=== PATIENT | male | born 1975 | race Caucasian/White ===

== ENCOUNTER 2018-08-11 20:35 | Inpatient (IN) | payer MEDICARE ==
[~2018-08-11 20:35] MED LIST: ETOMIDATE INJ/PF 20 MG/10 ML SDV IV ONE; ROCURONIUM BROMIDE INJ 50 MG/5 ML VIAL IV ONE
[2018-08-11] MEDS ORDERED: LIDOCAINE 2% INJ-PF (100 MG/5 ML) SYRINGE IV ONE (21:05)
[2018-08-11] MEDS ORDERED: ETOMIDATE INJ/PF 20 MG/10 ML SDV IV ONE (21:06)
[2018-08-11] MEDS ORDERED: ROCURONIUM BROMIDE INJ 50 MG/5 ML VIAL IV ONE (21:06)
[2018-08-11] MEDS ORDERED: ONDANSETRON HCL INJ/PF 4 MG/2 ML SDV IV ONE (21:07)
[2018-08-11] MEDS ORDERED: PROPOFOL 1,000 MG/100 ML INFUS..BTL IV PRN (21:07)
[2018-08-11 21:11] LABS: ABSOLUTE BASOPHILS # (AUTO) 0.1 10^3/uL (0.0-0.2); ABSOLUTE EOSINOPHILS # (AUTO) 0.2 10^3/uL (0.0-0.6); ABSOLUTE MONOCYTES (AUTO) 0.3 10^3/uL (0.1-1.4); ABSOLUTE NEUT (AUTO) 3.3 10^3/uL (1.7-8.2); BASOPHILS % (AUTO) 1.2 % (0-2); EOSINOPHILS % (AUTO) 3.5 % (0-6); HEMATOCRIT 39.7 % (37.9-51.0); HEMOGLOBIN 13.3 g/dL (13.5-17.0); LYMPHOCYTES % (AUTO) 20.9 % (13-45); MEAN CORPUSCULAR HEMOGLOBIN 31.7 pg (27.0-33.4); MEAN CORPUSCULAR HGB CONC 33.5 g/dL (32.0-36.0); MEAN CORPUSCULAR VOLUME 95 fl (80-97); MONOCYTES % (AUTO) 5.2 % (3-13); PLATELET COUNT 133 10^3/uL (150-450); RED BLOOD COUNT 4.18 10^6/uL (4.35-5.55); RED CELL DISTRIBUTION WIDTH 13.6 % (11.5-14.0); SEGMENTED NEUTROPHILS % (AUTO) 69.2 % (42-78); TOTAL CELLS COUNTED % (AUTO) 100 %; WHITE BLOOD COUNT 4.8 10^3/uL (4.0-10.5)
--- NOTE | 2018-08-11 21:12 | ER Document Report ---
ED General - General Chief Complaint: Unresponsive Stated Complaint: UNRESPONSIVE Time Seen by Provider: 08/11/18 21:04 Mode of Arrival: Medic Information source: Emergency Med Personnel Cannot obtain history due to: Unstable vital signs, Altered mental status Notes: 43-year-old male presents via EMS unresponsive and in respiratory failure. Per EMS they were called to the patient's house due to agitation, headache. Upon their arrival patient was combative, agitated and had multiple syncopal episodes that were witnessed by EMS. Patient did receive ketamine, fentanyl prior to arrival and did have a brief episode of respiratory arrest and presented bagging. No family is at the bedside to provide any additional information at this time. - HPI Onset: Just prior to arrival Onset/Duration: Sudden Associated symptoms: Headache - Related Data Allergies/Adverse Reactions: codeine Allergy (Verified 08/12/18 00:20) nitroglycerin Adverse Reaction (Verified 08/12/18 00:20) Past Medical History - General Information source: Emergency Med Personnel Cannot obtain history due to: Intubated, Unstable vital signs, Altered mental status - Social History Smoking Status: Unknown if Ever Smoked Lives with: Family Family History: Reviewed & Not Pertinent - Past Medical History Cardiac Medical History: Reports: Hx Hypertension Pulmonary Medical History: Reports: Other - Pulmonary hypertension Review of Systems - Review of Systems -: Yes ROS unobtainable due to patient's medical condition Physical Exam - Vital signs Vitals: Pulse Ox 98 08/11/18 20:35 - Notes Notes: PHYSICAL EXAMINATION: GENERAL: Presents unresponsive being bagged. HEAD: Atraumatic, normocephalic. EYES: Pupils equal round and reactive to light, sclera anicteric, conjunctiva are normal. ENT: Nares patent, oropharynx clear without exudates. Moist mucous membranes. NECK: Normal range of motion, supple without lymphadenopathy LUNGS: No spontaneous respirations, presents being bagged with bilateral breath sounds HEART: Regular rate and rhythm without murmurs ABDOMEN: Soft, nontender, nondistended abdomen. No guarding, no rebound. No masses appreciated. Musculoskeletal: Normal range of motion, no pitting or edema. No cyanosis. NEUROLOGICAL: 3T PSYCH: Unresponsive SKIN: Warm, Dry, normal turgor, no rashes or lesions noted. Course - Re-evaluation Re-evalutation: 08/12/18 01:42 Laboratory 08/11/18 08/11/18 08/11/18 00:45 00:45 20:56 WBC 4.8 RBC 4.18 L Hgb 13.3 L Hct 39.7 MCV 95 MCH 31.7 MCHC 33.5 RDW 13.6 Plt Count 133 L Seg Neutrophils % 69.2 Lymphocytes % 20.9 Monocytes % 5.2 Eosinophils % 3.5 Basophils % 1.2 Absolute Neutrophils 3.3 Absolute Lymphocytes 1.0 Absolute Monocytes 0.3 Absolute Eosinophils 0.2 Absolute Basophils 0.1 PT INR APTT VBG pH 7.30 VBG pCO2 51.1 VBG HCO3 24.7 VBG Base Excess -2.3 Sodium Potassium Chloride Carbon Dioxide Anion Gap BUN Creatinine Est GFR ( Amer) Est GFR (Non-Af Amer) Glucose Lactic Acid 2.3 H Calcium Total Bilirubin Direct Bilirubin Neonat Total Bilirubin Neonat Direct Bilirubin Neonat Indirect Bili AST ALT Alkaline Phosphatase Creatine Kinase CK-MB (CK-2) Troponin I Total Protein Albumin TSH Free T4 Free T3 pg/mL 08/11/18 08/11/18 08/11/18 20:56 20:56 20:56 WBC RBC Hgb Hct MCV MCH MCHC RDW Plt Count Seg Neutrophils % Lymphocytes % Monocytes % Eosinophils % Basophils % Absolute Neutrophils Absolute Lymphocytes Absolute Monocytes Absolute Eosinophils Absolute Basophils PT 13.6 INR 0.99 APTT 28.3 VBG pH VBG pCO2 VBG HCO3 VBG Base Excess Sodium 147.0 H Potassium 4.1 Chloride 104 Carbon Dioxide 25 Anion Gap 18 BUN 10 Creatinine 0.81 Est GFR ( Amer) > 60 Est GFR (Non-Af Amer) > 60 Glucose 99 Lactic Acid Calcium 9.0 Total Bilirubin 0.6 Direct Bilirubin 0.5 H Neonat Total Bilirubin Not Reportable Neonat Direct Bilirubin Not Reportable Neonat Indirect Bili Not Reportable AST 220 H ALT 100 H Alkaline Phosphatase 113 Creatine Kinase 64 CK-MB (CK-2) 0.49 Troponin I < 0.012 Total Protein 7.6 Albumin 4.5 TSH Free T4 Free T3 pg/mL 08/11/18 20:56 WBC RBC Hgb Hct MCV MCH MCHC RDW Plt Count Seg Neutrophils % Lymphocytes % Monocytes % Eosinophils % Basophils % Absolute Neutrophils Absolute Lymphocytes Absolute Monocytes Absolute Eosinophils Absolute Basophils PT INR APTT VBG pH VBG pCO2 VBG HCO3 VBG Base Excess Sodium Potassium Chloride Carbon Dioxide Anion Gap BUN Creatinine Est GFR ( Amer) Est GFR (Non-Af Amer) Glucose Lactic Acid Calcium Total Bilirubin Direct Bilirubin Neonat Total Bilirubin Neonat Direct Bilirubin Neonat Indirect Bili AST ALT Alkaline Phosphatase Creatine Kinase CK-MB (CK-2) Troponin I Total Protein Albumin TSH 1.63 Free T4 1.37 Free T3 pg/mL 2.91 Chest X-Ray 08/11/18 20:56 IMPRESSION: Left medial basilar dense consolidation. Endotracheal tube tip overlies the mid trachea, approximately 5.6 cm above the level of the natanael. Orogastric catheter is present with tip overlying the body of the stomach. Head CT 08/11/18 20:56 IMPRESSION: No acute intracranial findings. EVIDENCE OF ACUTE STROKE: NO. Chest CT 08/11/18 21:46 IMPRESSION: Limited exam as a result of body habitus and lack of contrast Areas of atelectasis in the lower lobes bilaterally and in the upper lobes bilaterally Enlarged liver and spleen Probable hilar adenopathy Endotracheal and nasogastric tubes in place Head CTA 08/11/18 21:46 IMPRESSION: Significantly suboptimal exam due to venous interference and contrast bolus. However as visualized, the CTA portion of the exam is unremarkable. Diffusely enlarged and nodular appearance to the thyroid gland. This likely reflects goitrous change. Correlate with thyroid function. Airspace opacities in the visualized lung apices bilaterally. TECHNICAL DOCUMENTATION: Quality ID # 436: Final reports with documentation of one or more dose reduction techniques (e.g., Automated exposure control, adjustment of the mA and/or kV according to patient size, use of iterative reconstruction technique) copyright 2010 [employer]- All Rights Reserved Neck CTA 08/11/18 21:46 IMPRESSION: Significantly suboptimal exam due to venous interference and contrast bolus. However as visualized, the CTA portion of the exam is unremarkable. Diffusely enlarged and nodular appearance to the thyroid gland. This likely reflects goitrous change. Correlate with thyroid function. Airspace opacities in the visualized lung apices bilaterally. TECHNICAL DOCUMENTATION: Quality ID # 436: Final reports with documentation of one or more dose reduction techniques (e.g., Automated exposure control, adjustment of the mA and/or kV according to patient size, use of iterative reconstruction technique) copyright 2010 [employer]- All Rights Reserved Temp Pulse Resp BP Pulse Ox 98.5 F 18 114/67 97 08/12/18 01:22 08/12/18 01:22 08/12/18 01:22 08/12/18 01:22 43-year-old male with known pulmonary hypertension, hypertension on continuous oxygen and BiPAP at night presents via EMS in respiratory distress. Upon arrival patient is actively being back. He has no spontaneous respirations. EMS reports that upon their arrival patient was agitated, combative and had a syncopal episode. They state that the patient was holding his head and complaining of a headache. reports that she had found the patient face down in his bed and urged him to turn over when he awoke agitated, confused and did not recognize her. She states the patient fell to the ground and did not seem to be breathing. She states that she placed his trilogy machine on him and the patient awoke. She denies any recent illness. She does state that patient has had prior similar symptoms but nothing as bad as tonight. 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 She also states that the patient is not always compliant with his oxygen. Patient has had previous intubation in the past. Because the patient had no spontaneous respirations intubation was performed using the glide scope and a 7.5 ET tube. This was done successfully with one attempt. Patient is currently being sedated with Versed and propofol. Patient is receiving every hour fentanyl. CBC is without leukocytosis or anemia. CMP does show a mild elevation in the patient's LFTs. Cardiac enzymes and venous blood gas are within normal limits. Family who is at the bedside is okay with admission to the ICU. Patient has been accepted by Dr. Aparicio hospitalist to the ICU. 08/12/18 01:52 - Vital Signs Vital signs: Temp Pulse Resp BP Pulse Ox 98.5 F 18 114/67 97 08/12/18 01:22 08/12/18 01:22 08/12/18 01:22 08/12/18 01:22 - Laboratory Result Diagrams: 08/11/18 20:56 08/11/18 20:56 Laboratory results interpreted by me: 08/11/18 08/11/18 08/11/18 00:45 20:56 20:56 RBC 4.18 L Hgb 13.3 L Plt Count 133 L Sodium 147.0 H Lactic Acid 2.3 H Direct Bilirubin 0.5 H AST 220 H ALT 100 H - Diagnostic Test Radiology reviewed: Image reviewed, Reports reviewed - EKG Interpretation by Me EKG shows normal: Sinus rhythm Rate: Normal Rhythm: NSR When compared to previous EKG there are: Previous EKG unavailable Procedures - Intubation Orotracheal Time of Intubation: 09:45 Airway evaluation: Large tongue, Obese Mallampati Classification: Class 3 Medications: Etomidate, Other - Rocuronium Intubation method: Orotracheal Blade type: Merrick Blade size: 3 Equipment used: Glidescope ETT size: 7.5 ETT secured at: Gums ETT secured at (cm): 23 Breath Sounds after Intubation: Equal End tidal CO2 confirmed: Yes Post Intubation Xray: Yes Intubation Complications: No complications Critical Care Note - Critical Care Note Total time excluding time spent on procedures (mins): 45 - Minutes of critical care time spent in direct contact evaluating and reevaluating the patient, treating symptoms, reviewing labs and studies and speaking with family and consultants excluding any procedures Discharge - Discharge Clinical Impression: History of pulmonary hypertension, Syncope and collapse, Confusion Respiratory failure Qualifiers: Chronicity: unspecified Respiratory failure complication: hypercapnia Qualified Code(s): J96.92 - Respiratory failure, unspecified with hypercapnia Hypothermia Qualifiers: Encounter type: initial encounter Qualified Code(s): T68.XXXA - Hypothermia, initial encounter Condition: Fair Disposition: ADMITTED INPATIENT Admitting Provider: Markus (Hospitalist) Unit Admitted: ICU
[2018-08-11 21:15] LABS: INTERNATIONAL RATION (INR) 0.99
[2018-08-11 21:16] LABS: PARTIAL THROMBOPLASTIN TIME 28.3 SEC (23.5-35.8)
[2018-08-11 21:18] LABS: PROTHROMBIN TIME 13.6 SEC (11.4-15.4)
[2018-08-11 21:25] LABS: ALANINE AMINOTRANSFERASE 100 U/L (21-72); ALBUMIN 4.5 g/dL (3.5-5.0); ALKALINE PHOSPHATASE 113 U/L (38-126); ANION GAP 18 (5-19); ASPARTATE AMINO TRANSFERASE 220 U/L (17-59); BILIRUBIN,DIRECT 0.5 mg/dL (0.0-0.4); BILIRUBIN,TOTAL 0.6 mg/dL (0.2-1.3); BLOOD UREA NITROGEN 10 mg/dL (7-20); CARBON DIOXIDE 25 mmol/L (22-30); CHLORIDE 104 mmol/L (98-107); CREATINE KINASE 64 U/L (55-170); GLUCOSE 99 mg/dL (75-110); POTASSIUM 4.1 mmol/L (3.6-5.0); TOTAL PROTEIN 7.6 g/dL (6.3-8.2)
[2018-08-11 21:36] LABS: CREATINE KINASE MB 0.49 ng/mL (<4.55)
[2018-08-11 21:39] LABS: TROPONIN I < 0.012 ng/mL
--- NOTE | 2018-08-11 21:51 | RADIOLOGY REPORT (SQ) ---
EXAM DESCRIPTION: CT HEAD WITHOUT COMPLETED DATE/TIME: 08/11/2018 9:25 pm REASON FOR STUDY: stroke alert COMPARISON: None. TECHNIQUE: Axial images acquired through the brain without intravenous contrast. Images reviewed wi th bone, brain and subdural windows. Images stored on PACS. All CT scanners at this facility use dose modulation, iterative reconstruction, and/or weight based d osing when appropriate to reduce radiation dose to as low as reasonably achievable (ALARA). [facility]: Dose Right [facility]: CareDose [facility]: Dose Right [facility]: Teradose 4D [facility]: [facility] RADIATION DOSE: CT Rad equipment meets quality standard of care and radiation dose reduction techniq ues were employed. CTDIvol: 55.2 mGy. DLP: 1112 mGy-cm. mGy. LIMITATIONS: None. FINDINGS: VENTRICLES: Normal size and contour. CEREBRUM: No masses. No hemorrhage. No midline shift. No evidence for acute infarction. Normal gra y/white matter differentiation. No areas of low density in the white matter. CEREBELLUM: No masses. No hemorrhage. No alteration of density. No evidence for acute infarction. EXTRAAXIAL SPACES: No fluid collections. No masses. ORBITS AND GLOBE: No intra- or extraconal masses. Normal contour of globe without masses. CALVARIUM: No fracture. PARANASAL SINUSES: No fluid or mucosal thickening. SOFT TISSUES: No mass or hematoma. OTHER: Endotracheal tube and orogastric catheter are present. IMPRESSION: No acute intracranial findings. EVIDENCE OF ACUTE STROKE: NO. COMMENT: Results called to the emergency 2144 hours. Quality ID # 436: Final reports with documentation of one or more dose reduction techniques (e.g., Au tomated exposure control, adjustment of the mA and/or kV according to patient size, use of iterative reconstruction technique) TECHNICAL DOCUMENTATION: JOB ID: [id number] [place]-72 2010 [employer]- All Rights Reserved Reading location - IP/workstation name: [email or web address]
--- NOTE | 2018-08-11 21:53 | RADIOLOGY REPORT (SQ) ---
EXAM DESCRIPTION: CHEST SINGLE VIEW COMPLETED DATE/TIME: 08/11/2018 9:25 pm REASON FOR STUDY: stroke alert COMPARISON: None. EXAM PARAMETERS: NUMBER OF VIEWS: One view. TECHNIQUE: Single frontal radiographic view of the chest acquired. RADIATION DOSE: NA LIMITATIONS: None. FINDINGS: LUNGS AND PLEURA: No pneumothorax. Left medial basilar dense consolidation. No significa nt pleural effusion. MEDIASTINUM AND HILAR STRUCTURES: No masses. Contour normal. HEART AND VASCULAR STRUCTURES: Heart normal in size. Normal vasculature. BONES: No acute findings. HARDWARE: Endotracheal tube tip overlies the mid trachea, approximately 5.6 cm above the level of the natanael. Orogastric catheter is present with tip overlying the body of the stomach. OTHER: No other significant finding. IMPRESSION: Left medial basilar dense consolidation. Endotracheal tube tip overlies the mid trachea, approximately 5.6 cm above the level of the natanael. Orogastric catheter is present with tip overlyi ng the body of the stomach. TECHNICAL DOCUMENTATION: JOB ID: [id number] [place]-72 2010 [email or web address]- All Rights Reserved Reading location - IP/workstation name: [email or web address]
[2018-08-11] MEDS ORDERED: CEFTRIAXONE 1 GM/D5W RTU 1 GM/50 ML RTUPB IV ONE (22:15)
[2018-08-11] MEDS ORDERED: PROPOFOL 1,000 MG/100 ML INFUS..BTL IV ONE (22:30)
[2018-08-11] MEDS ORDERED: FENTANYL CITRATE INJ/PF 100 MCG/2 ML AMPUL IV ONE (22:46)
[2018-08-11] MEDS ORDERED: MIDAZOLAM HCL 50 MG/100 ML RTUINJ IV PRN (22:47)
--- NOTE | 2018-08-11 23:00 | RADIOLOGY REPORT (SQ) ---
EXAM DESCRIPTION: CT CHEST WITHOUT IV CONTRAST COMPLETED DATE/TME: 08/11/2018 21:46 CLINICAL HISTORY: 43 years Male headache syncope COMPARISON: None. TECHNIQUE: Contiguous axial images obtained through the chest without IV contrast. Reformatted images obtained. This exam was performed according to our department optimization program which includes automated exposure control, adjustment of the mA and/or kv according to patient size and/or use of iterative reconstruction technique. FINDINGS: Study is limited by body habitus and lack of contrast. Nasogastric tube and endotracheal tubes in place. Fatty infiltration of the liver. Enlarged spleen. Hilar regions are suboptimally evaluated but there appears to be mild hilar adenopathy. Unenhanced aorta is normal in caliber. Areas of atelectasis in the lower lobes bilaterally and in the upper lobes. No alveolar consolidation is noted. No significant mediastinal adenopathy. IMPRESSION: Limited exam as a result of body habitus and lack of contrast Areas of atelectasis in the lower lobes bilaterally and in the upper lobes bilaterally Enlarged liver and spleen Probable hilar adenopathy Endotracheal and nasogastric tubes in place
--- NOTE | 2018-08-11 23:02 | RADIOLOGY REPORT (SQ) ---
EXAM DESCRIPTION: CT NECK ANGIOGRAPHY WITHOUT THEN WITH IV CONTRAST, CT HEAD ANGIOGRAPHY WITHOUT THEN WITH IV CONTRAST COMPLETED DATE/TME: 08/11/2018 21:46 CLINICAL HISTORY: 43 years, Male, headache syncope COMPARISON: None. TECHNIQUE: [id number] Images stored on PACS. All CT scanners at this facility use dose modulation, iterative reconstruction, and/or weight based dosing when appropriate to reduce radiation dose to as low as reasonably achievable (ALARA). Axial images obtained with coronal and sagittal MIPS reconstructions [facility]: Dose Right [facility]: CareDose [facility]: Dose Right [facility]: Teradose 4D [facility]: [employer] LIMITATIONS: None. FINDINGS: CTA neck: Limited evaluation of lung apices shows airspace opacities bilaterally. Endotracheal tube and enteric tubes are partially seen. The origins of the great vessels appear patent, although there is significant venous interference artifact. The origins and remaining cervical portions of the vertebral arteries are patent. Enlargement of the thyroid with diffuse nodularity suggesting goitrous change. The bilateral common carotid arteries are widely patent. The cervical portions of the internal carotid arteries are widely patent. CTA brain: Significantly suboptimal contrast bolus limits evaluation of the vertebral basilar system however no convincing evidence for basilar tip aneurysm. The petrous and remaining intracranial portions of the internal carotid arteries are also suboptimally assessed but appear grossly patent. [place] is suboptimally opacified. No convincing evidence for aneurysm or arteriovenous malformation. No gross CTA evidence for measurable stenosis. IMPRESSION: Significantly suboptimal exam due to venous interference and contrast bolus. However as visualized, the CTA portion of the exam is unremarkable. Diffusely enlarged and nodular appearance to the thyroid gland. This likely reflects goitrous change. Correlate with thyroid function. Airspace opacities in the visualized lung apices bilaterally. TECHNICAL DOCUMENTATION: Quality ID # 436: Final reports with documentation of one or more dose reduction techniques (e.g., Automated exposure control, adjustment of the mA and/or kV according to patient size, use of iterative reconstruction technique) copyright 2011 [employer]- All Rights Reserved
[2018-08-11] MEDS: FENTANYL CITRATE INJ/PF 100 MCG/2 ML AMPUL IV SCH (23:03)
[2018-08-12 00:34] LABS: FREE T3 2.91 pg/mL (2.77-5.27); FREE T4 (FREE THYROXINE) 1.37 ng/dL (0.78-2.19)
[2018-08-12 00:48] LABS: THYROID STIMULATING HORMONE 1.63 uIU/mL (0.47-4.68)
[2018-08-12 01:10] LABS: VENOUS BLOOD BASE EXCESS -2.3 mmol/L; VENOUS BLOOD HCO3 24.7 mmol/L (20-32); VENOUS BLOOD PCO2 51.1 mmHg (35-63); VENOUS BLOOD PH 7.3 (7.30-7.42)
[2018-08-12] MEDS: PROPOFOL 1,000 MG/100 ML INFUS..BTL IV PRN ×11 (01:15→22:21)
[2018-08-12] MEDS: FENTANYL CITRATE INJ/PF 100 MCG/2 ML AMPUL IV SCH ×10 (01:24→11:42)
[2018-08-12 01:28] LABS: APPEARANCE,URINE CLEAR; BILIRUBIN,URINE NEGATIVE (NEGATIVE); COLOR,URINE YELLOW; GLUCOSE, URINE NEGATIVE (NEGATIVE); KETONES,URINE NEGATIVE (NEGATIVE); LEUKOCYTE ESTERASE,URINE NEGATIVE (NEGATIVE); NITRITE,URINE NEGATIVE (NEGATIVE); PROTEIN,URINE NEGATIVE (NEGATIVE); UROBILINOGEN,URINE NEGATIVE mg/dL (<2.0)
[2018-08-12] MEDS ORDERED: ONDANSETRON HCL INJ/PF 4 MG/2 ML SDV IV PRN (01:31)
[2018-08-12] MEDS ORDERED: CEFTRIAXONE 1 GM/D5W RTU 1 GM/50 ML RTUPB IV ONE (01:33)
[2018-08-12] MEDS ORDERED: MORPHINE SULFATE 10 MG/ML INJ IV PRN (01:48)
[2018-08-12] MEDS ORDERED: ACETAMINOPHEN 650 MG SUPP.RECT PR PRN (01:48)
[2018-08-12] MEDS ORDERED: NORMAL SALINE 1000 ML 1,000 ML IV ONE (01:51)
[2018-08-12 02:14] LABS: URINE AMPHETAMINES SCREEN NEGATIVE; URINE BARBITURATES SCREEN NEGATIVE; URINE BENZODIAZEPINES SCREEN NEGATIVE; URINE COCAINE SCREEN NEGATIVE; URINE METHADONE SCREEN NEGATIVE; URINE PHENCYCLIDINE SCREEN NEGATIVE
[2018-08-12 02:29] LABS: URINE MARIJUANA (THC) SCREEN NEGATIVE
[2018-08-12] MEDS: RINGERS SOLUTION,LACTATED 1,000 ML IV PRN ×4 (03:27→21:41)
[2018-08-12] MEDS: MIDAZOLAM HCL 50 MG/100 ML RTUINJ IV PRN ×3 (05:15→20:23)
--- NOTE | 2018-08-12 06:54 | PDOC H&P ---
History of Present Illness Admission Date/PCP: 08/12/2018 No PCP Patient complains of: Agitation History of Present Illness: ARLEY COELLO is a 43 year old male who presented to the emergency room via EMS with a history of acute episodes of agitation, headache and syncope. He was found by his at his home apparently having fallen asleep without using his BiPAP and she noted that he was cyanotic and hard to arouse. She put his BiPAP back on him and while she was trying to assist him he aroused suddenly and did not recognize her and became very agitated and combative and then as he improved he complained of a severe headache (the worst of his life) and then developed a sudden syncopal episode. This alarmed his and she called EMS. The patient had another similar episode in the emergency vehicle and again had a similar episode in the emergency room under the observation of the emergency room physician and staff. His oxygen saturations were noted to vary wildly in the emergency room and to guarantee his best oxygenation and reduce his agitation and anxiety he was intubated in placed on a ventilator. His CT scan shows no evidence of an acute intracranial process. Patient was subsequently admitted to the hospital for further evaluation and treatment in the ICU. Past Medical History Past Medical History: Past medical history, past surgical history, social history, medications/allergies and family history cannot be obtained from the patient due to his acute encephalopathy and subsequent intubation and ventilation. Information obtained is gleaned from his current medical record and any available reliable source. Cardiac Medical History: Reports: Hypertension, Other - Pulmonary hypertension Pulmonary Medical History: Reports: Respiratory Failure - Chronic respiratory failure with hypoxia secondary to pulmonary HTN, Sleep Apnea - Restrictive lung disease, Other - Uses Trilogy at night, and oxygen 2 L per nasal cannula during the days Denies: Asthma, Chronic Obstructive Pulmonary Disease (COPD) EENT Medical History: Denies: Cataracts, Eyes - No vision problem, Ears - No hearing problem Neurological Medical History: Denies: Hemorrhagic CVA, Ischemic CVA Endocrine Medical History: Denies: Diabetes Mellitus Type 1, Diabetes Mellitus Type 2 Renal/ Medical History: Denies: Chronic Kidney Disease, Nephrolithiasis Malignancy Medical History: Reports: None GI Medical History: Denies: Cirrhosis, Hepatitis Musculoskeltal Medical History: Denies: Arthritis, Gout Skin Medical History: Denies: Eczema, Psoriasis Psychiatric Medical History: Denies: Alcohol Dependency, Substance Abuse, Tobacco Dependency Traumatic Medical History: Reports: None Hematology: Denies: Anemia, Bleeding Tendencies Infectious Medical History: Reports: None Past Surgical History Past Surgical History: Past medical history, past surgical history, social history, medications/allergies and family history cannot be obtained from the patient due to his acute encephalopathy and subsequent intubation and ventilation. Information obtained is gleaned from his current medical record and any available reliable source. Past Surgical History: Reports: None Social History Information Source: Relative Lives with: Family Smoking Status: Never Smoker Frequency of Alcohol Use: Rare Hx Recreational Drug Use: No Drugs: None Hx Prescription Drug Abuse: No Past Social History Note: Past medical history, past surgical history, social history, medications/allergies and family history cannot be obtained from the patient due to his acute encephalopathy and subsequent intubation and ventilation. In formation obtained is gleaned from his current medical record and any available reliable source. - Advance Directive Resuscitation Status: Full Code Surrogate healthcare decision maker:: Family History Family History: CAD, Hypertension Family History: Past medical history, past surgical history, social history, medications/allergies and family history cannot be obtained from the patient due to his acute encephalopathy and subsequent intubation and ventilation. Information obtained is gleaned from his current medical record and any available reliable source. Parental Family History Reviewed: Yes Children Family History Reviewed: No Sibling(s) Family History Reviewed.: Yes Medication/Allergy Allergies/Adverse Reactions: codeine Allergy (Verified 08/12/18 00:20) nitroglycerin Adverse Reaction (Verified 08/12/18 00:20) Review of Systems ROS unobtainable: Due to endotracheal tube Physical Exam Vital Signs: Temp Pulse Resp BP Pulse Ox 21 H 106/57 L 99 08/11/18 23:17 08/11/18 23:17 08/11/18 23:17 Intake & Output 08/10/18 08/11/18 08/12/18 23:59 23:59 23:59 Intake Total 150 Balance 150 General appearance: PRESENT: no acute distress, obese, other - Intubated and ventilated Head exam: PRESENT: atraumatic, normocephalic Eye exam: ABSENT: conjunctival injection, scleral icterus Ear exam: PRESENT: normal external ear exam. ABSENT: bleeding, drainage Mouth exam: PRESENT: dry mucosa, neck supple Neck exam: ABSENT: thyromegaly, tracheal deviation Respiratory exam: PRESENT: clear to auscultation amy, symmetrical, other - On mechanical ventilation Cardiovascular exam: PRESENT: RRR. ABSENT: clicks, gallop, rubs Pulses: PRESENT: normal radial pulses, normal dorsalis pedis pul Vascular exam: PRESENT: normal capillary refill. ABSENT: pallor GI/Abdominal exam: PRESENT: normal bowel sounds, soft Rectal exam: PRESENT: deferred Extremities exam: ABSENT: joint swelling, pedal edema Musculoskeletal exam: ABSENT: deformity, dislocation Neurological exam: PRESENT: other - Paralyzed and sedated for endotracheal intubation thus limiting examination Psychiatric exam: PRESENT: other - Paralyzed and sedated for endotracheal intubation thus limiting examination Skin exam: PRESENT: dry, intact, warm. ABSENT: jaundice, rash, urticaria Results Laboratory Results: 08/11/18 20:56 08/11/18 20:56 08/11/18 08/11/18 20:56 20:56 WBC 4.8 RBC 4.18 L Hgb 13.3 L Hct 39.7 MCV 95 MCH 31.7 MCHC 33.5 RDW 13.6 Plt Count 133 L Seg Neutrophils % 69.2 Lymphocytes % 20.9 Monocytes % 5.2 Eosinophils % 3.5 Basophils % 1.2 Absolute Neutrophils 3.3 Absolute Lymphocytes 1.0 Absolute Monocytes 0.3 Absolute Eosinophils 0.2 Absolute Basophils 0.1 Sodium 147.0 H Potassium 4.1 Chloride 104 Carbon Dioxide 25 Anion Gap 18 BUN 10 Creatinine 0.81 Est GFR ( Amer) > 60 Est GFR (Non-Af Amer) > 60 Glucose 99 Calcium 9.0 Total Bilirubin 0.6 AST 220 H ALT 100 H Alkaline Phosphatase 113 Total Protein 7.6 Albumin 4.5 08/11/18 08/11/18 20:56 20:56 Creatine Kinase 64 CK-MB (CK-2) 0.49 Troponin I < 0.012 Impressions: Chest X-Ray 08/11/18 20:56 IMPRESSION: Left medial basilar dense consolidation. Endotracheal tube tip overlies the mid trachea, approximately 5.6 cm above the level of the natanael. Orogastric catheter is present with tip overlying the body of the stomach. Head CT 08/11/18 20:56 IMPRESSION: No acute intracranial findings. EVIDENCE OF ACUTE STROKE: NO. Chest CT 08/11/18 21:46 IMPRESSION: Limited exam as a result of body habitus and lack of contrast Areas of atelectasis in the lower lobes bilaterally and in the upper lobes bilaterally Enlarged liver and spleen Probable hilar adenopathy Endotracheal and nasogastric tubes in place Head CTA 08/11/18 21:46 IMPRESSION: Significantly suboptimal exam due to venous interference and contrast bolus. However as visualized, the CTA portion of the exam is unremarkable. Diffusely enlarged and nodular appearance to the thyroid gland. This likely reflects goitrous change. Correlate with thyroid function. Airspace opacities in the visualized lung apices bilaterally. TECHNICAL DOCUMENTATION: Quality ID # 436: Final reports with documentation of one or more dose reduction techniques (e.g., Automated exposure control, adjustment of the mA and/or kV according to patient size, use of iterative reconstruction technique) copyright 2010 [employer]- All Rights Reserved Neck CTA 08/11/18 21:46 IMPRESSION: Significantly suboptimal exam due to venous interference and contrast bolus. However as visualized, the CTA portion of the exam is unremarkable. Diffusely enlarged and nodular appearance to the thyroid gland. This likely reflects goitrous change. Correlate with thyroid function. Airspace opacities in the visualized lung apices bilaterally. TECHNICAL DOCUMENTATION: Quality ID # [id number]: Final reports with documentation of one or more dose reduction techniques (e.g., Automated exposure control, adjustment of the mA and/or kV according to patient size, use of iterative reconstruction technique) copyright 2010 [employer]- All Rights Reserved Assessment and Plan - Diagnosis (1) Acute and chronic respiratory failure with hypoxia Is this a current diagnosis for this admission?: Yes Plan: Patient will continue on mechanical ventilation. Settings will be adjusted according to need based on ABGs. Patient will be maintained on mechanical ventilation until such time as he can be treated with continuous BiPAP which is his norm. (2) Encephalopathy acute Is this a current diagnosis for this admission?: Yes Plan: A urine drug screen will be obtained. Interventional radiology will be consulted for a lumbar puncture for chemistry and culture evaluation. Daily CBCs, comprehensive metabolic profiles, and magnesium levels will be obtained. A thyroid profile will be obtained x1. Further evaluation for causes of acute encephalopathy will be entertained as appropriate. (3) Syncope and collapse Is this a current diagnosis for this admission?: Yes Plan: Patient will be monitored closely throughout his hospital stay. When he is able to be off ventilator he will be further evaluated for possible causes of his syncope if no clear etiology has yet been determined. (4) Pulmonary hypertension Is this a current diagnosis for this admission?: Yes Plan: Patient will be continued on mechanical ventilation to support adequate oxyg enation and overcome the adverse effects of his pulmonary hypertension. Patient will be returning to his usual continuous BiPAP usage when possible. Pulmonology consult may be obtained when pulmonology services are available. - Time Time Spent with patient: 15-24 minutes Medications reviewed and adjusted accordingly: No - No home med list Anticipated discharge: Home - Inpatient Certification Based on my medical assessment, after consideration of the patient's comorbidities, presenting symptoms, or acuity I expect that the services needed warrant INPATIENT care.: Yes I certify that my determination is in accordance with my understanding of Medicare's requirements for reasonable and necessary INPATIENT services [42 CFR 412.3e].: Yes Medical Necessity: Need Close Monitoring Due to Risk of Patient Decompensation, Need For Continuous Telemetry Monitoring, Risk of Complication if Not Cared For in Hospital
[2018-08-12 07:13] LABS: ARTERIAL BLOOD BASE EXCESS -0.1 mmol/L; ARTERIAL BLOOD FIO2 40%; ARTERIAL BLOOD H2CO3 1.51 mmol/L (1.05-1.35); ARTERIAL BLOOD HCO3 26.2 mmol/L (20-24); ARTERIAL BLOOD O2 SATURATION 93.6 % (94-98); ARTERIAL BLOOD PH 7.34 (7.35-7.45); ARTERIAL BLOOD PO2 72.8 mmHg (80-100); ARTERIAL BLOOD TOTAL CO2 27.7 mmol/L (23-27)
[2018-08-12] MEDS: FONDAPARINUX SODIUM INJ 2.5 MG/0.5 ML DISP.SYRIN SUBCUT SCH (08:03)
[2018-08-12] MEDS ORDERED: SCOPOLAMINE HYDROBROMIDE 1.5 MG PATCH.TD72 TD ONE (09:54)
--- NOTE | 2018-08-12 10:23 | PDOC PROGRESS REPORT ---
Subjective Progress Note for:: 08/12/18 Subjective:: 43 year old male who presented to the emergency room via EMS with a history of acute episodes of agitation, headache and syncope. He was found by his at his home apparently having fallen asleep without using his BiPAP and she noted that he was cyanotic and hard to arouse. She put his BiPAP back on him and while she was trying to assist him he aroused suddenly and did not recognize her and became very agitated and combative and then as he improved he complained of a severe headache (the worst of his life) and then developed a sudden syncopal episode. This alarmed his and she called EMS. The patient had another similar episode in the emergency vehicle and again had a similar episode in the emergency room under the observation of the emergency room physician and staff. His oxygen saturations were noted to vary wildly in the emergency room and to guarantee his best oxygenation and reduce his agitation and anxiety he was intubated in placed on a ventilator. His CT scan shows no evidence of an acute intracranial process. Patient was subsequently admitted to the hospital for further evaluation and treatment in the ICU. [id number]/[id number]-old male admitted to the ICU for acute episodes of agitation, headaches and syncope. Patient was cyanotic and hard to arouse at home. He was placed back on BiPAP and EMS was called on the way to the hospital he became very agitated and combative and complained of severe headaches .. CTA of the head was done, neck CTa was done CT head was done everything came back negative for bleed or stroke. Patient is presently on 40% oxygen on propofol 50 mcg/kg/min and Versed 7.5 mg/h. Presently on 40% oxygen. ABG this morning pH is 7.34/PCO2 50 / PO2 72.8 /bicarb is 26. Plan is to keep him intubated and we may try weaning process tomorrow. CT scans indicates bilateral opacifications in the lung howell. And also suggestive diffusely enlarged thyroid gland with a goiter-like appearance. To check his TSH levels tomorrow. Reason For Visit: ACUTE ON CHRONIC RESPIRATORY FAILURE WITH Physical Exam Vital Signs: Temp Pulse Resp BP Pulse Ox 99.7 F 70 14 131/68 H 96 08/12/18 08:00 08/12/18 08:00 08/12/18 08:00 08/12/18 08:00 08/12/18 08:32 Intake & Output 08/11/18 08/12/18 08/13/18 06:59 06:59 06:59 Intake Total 1497 1259 Output Total 550 75 Balance 947 1184 Weight 154.7 kg General appearance: PRESENT: morbidly obese, other - Morbidly obese male presently intubated under sedation with Versed and propofol. Head exam: PRESENT: atraumatic Eye exam: PRESENT: PERRLA Mouth exam: PRESENT: moist, tongue midline Neck exam: ABSENT: carotid bruit, JVD, lymphadenopathy, thyromegaly Respiratory exam: PRESENT: decreased breath sounds Cardiovascular exam: PRESENT: RRR. ABSENT: diastolic murmur, rubs, systolic murmur GI/Abdominal exam: PRESENT: normal bowel sounds, soft. ABSENT: distended, guarding, mass, organolmegaly, rebound, tenderness Rectal exam: PRESENT: deferred Gentrourinary exam: PRESENT: indwelling catheter Neurological exam: PRESENT: other - Patient is under mechanical ventilation and sedation. Results Laboratory Results: 08/11/18 20:56 08/11/18 20:56 08/11/18 08/11/18 08/11/18 00:45 00:45 20:56 WBC 4.8 RBC 4.18 L Hgb 13.3 L Hct 39.7 MCV 95 MCH 31.7 MCHC 33.5 RDW 13.6 Plt Count 133 L Seg Neutrophils % 69.2 Lymphocytes % 20.9 Monocytes % 5.2 Eosinophils % 3.5 Basophils % 1.2 Absolute Neutrophils 3.3 Absolute Lymphocytes 1.0 Absolute Monocytes 0.3 Absolute Eosinophils 0.2 Absolute Basophils 0.1 Carbonic Acid HCO3/H2CO3 Ratio ABG pH ABG pCO2 ABG pO2 ABG HCO3 ABG O2 Saturation ABG Base Excess VBG pH 7.30 VBG pCO2 51.1 VBG HCO3 24.7 VBG Base Excess -2.3 FiO2 Sodium Potassium Chloride Carbon Dioxide Anion Gap BUN Creatinine Est GFR ( Amer) Est GFR (Non-Af Amer) Glucose Lactic Acid 2.3 H Calcium Total Bilirubin AST ALT Alkaline Phosphatase Total Protein Albumin TSH Free T4 Free T3 pg/mL Urine Color Urine Appearance Urine pH Ur Specific [place] Urine Protein Urine Glucose (UA) Urine Ketones Urine Blood Urine Nitrite Ur Leukocyte Esterase Urine WBC (Auto) Urine RBC (Auto) 08/11/18 08/11/18 08/12/18 20:56 20:56 00:45 WBC RBC Hgb Hct MCV MCH MCHC RDW Plt Count Seg Neutrophils % Lymphocytes % Monocytes % Eosinophils % Basophils % Absolute Neutrophils Absolute Lymphocytes Absolute Monocytes Absolute Eosinophils Absolute Basophils Carbonic Acid HCO3/H2CO3 Ratio ABG pH ABG pCO2 ABG pO2 ABG HCO3 ABG O2 Saturation ABG Base Excess VBG pH VBG pCO2 VBG HCO3 VBG Base Excess FiO2 Sodium 147.0 H Potassium 4.1 Chloride 104 Carbon Dioxide 25 Anion Gap 18 BUN 10 Creatinine 0.81 Est GFR ( Amer) > 60 Est GFR (Non-Af Amer) > 60 Glucose 99 Lactic Acid Calcium 9.0 Total Bilirubin 0.6 AST 220 H ALT 100 H Alkaline Phosphatase 113 Total Protein 7.6 Albumin 4.5 TSH 1.63 Free T4 1.37 Free T3 pg/mL 2.91 Urine Color YELLOW Urine Appearance CLEAR Urine pH 5.0 Ur Specific [place] 1.030 Urine Protein NEGATIVE Urine Glucose (UA) NEGATIVE Urine Ketones NEGATIVE Urine Blood NEGATIVE Urine Nitrite NEGATIVE Ur Leukocyte Esterase NEGATIVE Urine WBC (Auto) 2 Urine RBC (Auto) 0 08/12/18 08/12/18 04:58 08:17 WBC RBC Hgb Hct MCV MCH MCHC RDW Plt Count Seg Neutrophils % Lymphocytes % Monocytes % Eosinophils % Basophils % Absolute Neutrophils Absolute Lymphocytes Absolute Monocytes Absolute Eosinophils Absolute Basophils Carbonic Acid 1.51 H HCO3/H2CO3 Ratio 17:1 ABG pH 7.34 L ABG pCO2 50.0 H ABG pO2 72.8 L ABG HCO3 26.2 H ABG O2 Saturation 93.6 L ABG Base Excess -0.1 VBG pH VBG pCO2 VBG HCO3 VBG Base Excess FiO2 40% Sodium Potassium Chloride Carbon Dioxide Anion Gap BUN Creatinine Est GFR ( Amer) Est GFR (Non-Af Amer) Glucose Lactic Acid 1.9 Calcium Total Bilirubin AST ALT Alkaline Phosphatase Total Protein Albumin TSH Free T4 Free T3 pg/mL Urine Color Urine Appearance Urine pH Ur Specific [place] Urine Protein Urine Glucose (UA) Urine Ketones Urine Blood Urine Nitrite Ur Leukocyte Esterase Urine WBC (Auto) Urine RBC (Auto) 08/11/18 08/11/18 20:56 20:56 Creatine Kinase 64 CK-MB (CK-2) 0.49 Troponin I < 0.012 Impressions: Chest X-Ray 08/11/18 20:56 IMPRESSION: Left medial basilar dense consolidation. Endotracheal tube tip overlies the mid trachea, approximately 5.6 cm above the level of the natanael. Orogastric catheter is present with tip overlying the body of the stomach. Head CT 08/11/18 20:56 IMPRESSION: No acute intracranial findings. EVIDENCE OF ACUTE STROKE: NO. Chest CT 08/11/18 21:46 IMPRESSION: Limited exam as a result of body habitus and lack of contrast Areas of atelectasis in the lower lobes bilaterally and in the upper lobes bilaterally Enlarged liver and spleen Probable hilar adenopathy Endotracheal and nasogastric tubes in place Head CTA 08/11/18 21:46 IMPRESSION: Significantly suboptimal exam due to venous interference and contrast bolus. However as visualized, the CTA portion of the exam is unremarkable. Diffusely enlarged and nodular appearance to the thyroid gland. This likely reflects goitrous change. Correlate with thyroid function. Airspace opacities in the visualized lung apices bilaterally. TECHNICAL DOCUMENTATION: Quality ID # 436: Final reports with documentation of one or more dose reduction techniques (e.g., Automated exposure control, adjustment of the mA and/or kV according to patient size, use of iterative reconstruction technique) copyright 2010 [employer]- All Rights Reserved Neck CTA 08/11/18 21:46 IMPRESSION: Significantly suboptimal exam due to venous interference and contrast bolus. However as visualized, the CTA portion of the exam is unremarkable. Diffusely enlarged and nodular appearance to the thyroid gland. This likely reflects goitrous change. Correlate with thyroid function. Airspace opacities in the visualized lung apices bilaterally. TECHNICAL DOCUMENTATION: Quality ID # [id number]: Final reports with documentation of one or more dose reduction techniques (e.g., Automated exposure control, adjustment of the mA and/or kV according to patient size, use of iterative reconstruction technique) copyright 2010 [employer]- All Rights Reserved Assessment and Plan - Diagnosis (1) Acute and chronic respiratory failure with hypoxia Is this a current diagnosis for this admission?: Yes Plan: Patient will continue on mechanical ventilation. Settings will be adjusted according to need based on ABGs. Patient will be maintained on mechanical ventilation until such time as he can be treated with continuous BiPAP which is his norm. 08/12/2018-patient is intubated settings are 40% oxygen with PEEP of 5 SIMV rate of 12 and tidal volume of 500. Presently on Versed and propofol sedation. (2) Syncope and collapse Is this a current diagnosis for this admission?: Yes Plan: Patient will be monitored closely throughout his hospital stay. When he is able to be off ventilator he will be further evaluated for possible causes of his syncope if no clear etiology has yet been determined. 08/12/2018-patient is admitted for syncope and collapse. Work-up so far negative. Unable to do the MRI because patient is intubated. (3) Encephalopathy acute Is this a current diagnosis for this admission?: Yes Plan: A urine drug screen will be obtained. Interventional radiology will be cons ulted for a lumbar puncture for chemistry and culture evaluation. Daily CBCs, comprehensive metabolic profiles, and magnesium levels will be obtained. A thyroid profile will be obtained x1. Further evaluation for causes of acute encephalopathy will be entertained as appropriate. 08/12/2018-patient is admitted with altered mental status/acute encephalopathy. Urine drug screen is negative. Plan to do the daily CBCs magnesium and CMP. Plan to do the LP. Requested for carboxyhemoglobin levels to rule out any carbon monoxide poisoning. Plan to arrange for the LP today. (4) Pneumonia Is this a current diagnosis for this admission?: Yes Plan: 08/12/2018-CT scan suggestive of bilateral opacifications in the lung howell. Mos t likely community-acquired pneumonia. Most likely gram-positive organisms. Presently on IV Rocephin and IV levo floxacillin is added to the medication. Blood cultures are negative so far. (5) Morbid obesity with BMI of 40.0-44.9, adult Is this a current diagnosis for this admission?: No Plan: 08/12/2018-patient has morbid obesity BMI is more BMI is more than 43. Once he is extubated plan is to educate him on diet exercise lifestyle modifications. - Time Time Spent with patient: 25-34 minutes Medications reviewed and adjusted accordingly: Yes Anticipated discharge: Home
[2018-08-12] MEDS ORDERED: CYANOCOBALAMIN (VITAMIN B-12) INJ 1000 MCG/1 ML VIAL IM SCH (10:45)
[2018-08-12] MEDS ORDERED: FUROSEMIDE 20 MG TABLET PO PRN (10:45)
[2018-08-12] MEDS ORDERED: CLONIDINE HCL 0.1 MG TABLET PO SCH (11:00)
[2018-08-12] MEDS ORDERED: (PENDING PHARMACY ID) (Diltiazem Hcl [Cartia Xt] 300 MG) PO SCH (11:00)
[2018-08-12] MEDS ORDERED: (PENDING PHARMACY ID) (Atenolol [Tenormin 100 Mg Tablet] 100 MG) PO SCH (11:00)
[2018-08-12] MEDS ORDERED: AMBRISENTAN 5 MG PO SCH (11:00)
[2018-08-12] MEDS ORDERED: FUROSEMIDE 20 MG TABLET PO SCH (11:00)
[2018-08-12] MEDS ORDERED: CARVEDILOL 12.5 MG TABLET PO SCH (11:00)
[2018-08-12] MEDS: LEVOFLOXACIN 750 MG/D5W RTU 750 MG/150 ML RTUPB IV SCH (11:45)
[2018-08-12] MEDS ORDERED: ASPIRIN 81 MG TABLET, CHEWABLE PO SCH (12:15)
[2018-08-12] MEDS ORDERED: FUROSEMIDE 20 MG TABLET NG PRN (12:30)
[2018-08-12 12:39] LABS: GLUCOSE,CSF 50 mg/dL (40-70); PROTEIN,CSF 63 mg/dL (12-60)
[2018-08-12 12:57] LABS: APPEARANCE ALL TUBES CLEAR; COLOR ALL TUBES COLORLESS; CSF TOTAL VOLUME 31.5 CC; CSF TUBE NUMBER 1; VOLUME TUBE 2 7.5 CC
[2018-08-12 12:58] LABS: RED BLOOD CELL,CSF 0 /uL (0-10)
[2018-08-12 12:59] LABS: APPEARANCE ALL TUBES CLEAR; COLOR ALL TUBES COLORLESS; CSF TUBE NUMBER 4; WHITE BLOOD CELL,CSF 1 /uL (0-5)
[2018-08-12 13:00] LABS: CSF TOTAL VOLUME 31.5 CC; RED BLOOD CELL,CSF 0 /uL (0-10); VOLUME TUBE 2 7.5 CC; WHITE BLOOD CELL,CSF 1 /uL (0-5)
[2018-08-12] MEDS: FENTANYL CITRATE INJ/PF 100 MCG/2 ML AMPUL IV PRN ×2 (14:27→20:27)
[2018-08-12] MEDS: CLONIDINE HCL 0.1 MG TABLET NG SCH ×2 (14:29→21:41)
[2018-08-12] MEDS: FLUTICASONE NASAL SPRAY 50 MCG/SPRY 120 SPRAY/16 GM NASL SCH (14:29)
[2018-08-12] MEDS ORDERED: DILTIAZEM HCL 120 MG CAP.SR.24H PO ONE (14:56)
[2018-08-12] MEDS ORDERED: DILTIAZEM HCL 180 MG CAPSULE.CR PO ONE (14:56)
[2018-08-12] MEDS ORDERED: ATENOLOL 50 MG TABLET ONE (14:56)
[2018-08-12] MEDS ORDERED: DILTIAZEM HCL 180 MG CAPSULE.CR PO SCH (16:00)
[2018-08-12] MEDS ORDERED: LORATADINE 10 MG TABLET PO SCH (16:00)
[2018-08-12] MEDS ORDERED: ATENOLOL 50 MG TABLET PO SCH (16:00)
[2018-08-12] MEDS ORDERED: DILTIAZEM HCL 120 MG CAP.SR.24H PO SCH (16:00)
[2018-08-12] MEDS ORDERED: DEXTROSE 40% GEL 15 GM TUBE PO PRN ×2 (16:36)
[2018-08-12] MEDS ORDERED: GLUCAGON,HUMAN RECOMB 1 MG INJ SUBCUT PRN (16:36)
[2018-08-12] MEDS ORDERED: DEXTROSE 50%-WATER 25 GM/50 ML DISP.SYRIN IV PRN ×2 (16:36)
[2018-08-12] MEDS: DILTIAZEM HCL 60 MG TABLET NG SCH (17:26)
[2018-08-12] MEDS: CARVEDILOL 12.5 MG TABLET NG SCH (21:41)
[2018-08-12] MEDS: ATORVASTATIN CALCIUM 40 MG TABLET NG SCH (21:42)
[2018-08-12] MEDS ORDERED: ATORVASTATIN CALCIUM 40 MG TABLET PO SCH (22:00)
[2018-08-12] MEDS ORDERED: (PENDING PHARMACY ID) (Rosuvastatin Calcium [Crestor 20 Mg Tablet] 20 MG) PO SCH (22:00)
--- NOTE | 2018-08-12 23:03 | EKG REPORT ---
SEVERITY:- BORDERLINE ECG - SINUS RHYTHM BORDERLINE T ABNORMALITIES, INFERIOR LEADS : Confirmed by: Adán Ruff 12-Aug-2018 23:02:31
[2018-08-13] MEDS: PROPOFOL 1,000 MG/100 ML INFUS..BTL IV PRN ×11 (00:30→22:49)
[2018-08-13] MEDS: DILTIAZEM HCL 60 MG TABLET NG SCH ×4 (00:55→17:19)
[2018-08-13] MEDS: RINGERS SOLUTION,LACTATED 1,000 ML IV PRN ×3 (02:54→14:54)
[2018-08-13] MEDS: MIDAZOLAM HCL 50 MG/100 ML RTUINJ IV PRN ×2 (04:38→17:20)
[2018-08-13 04:43] LABS: ARTERIAL BLOOD BASE EXCESS 3.1 mmol/L; ARTERIAL BLOOD FIO2 40%; ARTERIAL BLOOD H2CO3 1.45 mmol/L (1.05-1.35); ARTERIAL BLOOD HCO3 28.7 mmol/L (20-24); ARTERIAL BLOOD O2 SATURATION 94.2 % (94-98); ARTERIAL BLOOD PCO2 48.1 mmHg (35-45); ARTERIAL BLOOD PH 7.39 (7.35-7.45); ARTERIAL BLOOD PO2 71.7 mmHg (80-100); ARTERIAL BLOOD TOTAL CO2 30.1 mmol/L (23-27)
[2018-08-13 04:59] LABS: ABSOLUTE EOSINOPHILS # (AUTO) 0.1 10^3/uL (0.0-0.6); ABSOLUTE LYMPHOCYTES (AUTO) 0.7 10^3/uL (0.5-4.7); ABSOLUTE MONOCYTES (AUTO) 0.3 10^3/uL (0.1-1.4); ABSOLUTE NEUT (AUTO) 2.5 10^3/uL (1.7-8.2); BASOPHILS % (AUTO) 0.7 % (0-2); EOSINOPHILS % (AUTO) 3.8 % (0-6); HEMATOCRIT 31.3 % (37.9-51.0); MEAN CORPUSCULAR HEMOGLOBIN 32.2 pg (27.0-33.4); MEAN CORPUSCULAR HGB CONC 33.5 g/dL (32.0-36.0); MEAN CORPUSCULAR VOLUME 96 fl (80-97); MONOCYTES % (AUTO) 7.9 % (3-13); RED BLOOD COUNT 3.26 10^6/uL (4.35-5.55); RED CELL DISTRIBUTION WIDTH 13.2 % (11.5-14.0); SEGMENTED NEUTROPHILS % (AUTO) 68.6 % (42-78); TOTAL CELLS COUNTED % (AUTO) 100 %; WHITE BLOOD COUNT 3.7 10^3/uL (4.0-10.5)
[2018-08-13 05:18] LABS: HEMOGLOBIN 10.5 g/dL (13.5-17.0)
[2018-08-13 05:22] LABS: ALANINE AMINOTRANSFERASE 61 U/L (21-72); ALBUMIN 3.2 g/dL (3.5-5.0); ALKALINE PHOSPHATASE 83 U/L (38-126); ANION GAP 8 (5-19); ASPARTATE AMINO TRANSFERASE 92 U/L (17-59); BILIRUBIN,DIRECT 0.5 mg/dL (0.0-0.4); BILIRUBIN,TOTAL 0.6 mg/dL (0.2-1.3); BLOOD UREA NITROGEN 14 mg/dL (7-20); CALCIUM 8.5 mg/dL (8.4-10.2); CARBON DIOXIDE 28 mmol/L (22-30); CHLORIDE 104 mmol/L (98-107); GLUCOSE 85 mg/dL (75-110); POTASSIUM 3.9 mmol/L (3.6-5.0); SODIUM 139.9 mmol/L (137-145); TOTAL PROTEIN 5.7 g/dL (6.3-8.2)
[2018-08-13 05:36] LABS: FREE T3 3.37 pg/mL (2.77-5.27); FREE T4 (FREE THYROXINE) 1.14 ng/dL (0.78-2.19)
[2018-08-13 05:41] LABS: PLATELET COUNT 90 10^3/uL (150-450)
[2018-08-13 05:50] LABS: THYROID STIMULATING HORMONE 2.37 uIU/mL (0.47-4.68)
[2018-08-13] MEDS: CLONIDINE HCL 0.1 MG TABLET NG SCH ×3 (05:52→21:41)
[2018-08-13] MEDS: FONDAPARINUX SODIUM INJ 2.5 MG/0.5 ML DISP.SYRIN SUBCUT SCH (07:53)
[2018-08-13] MEDS: FLUTICASONE NASAL SPRAY 50 MCG/SPRY 120 SPRAY/16 GM NASL SCH (09:17)
[2018-08-13] MEDS: LORATADINE 10 MG TABLET NG SCH (09:18)
[2018-08-13] MEDS: ATENOLOL 50 MG TABLET NG SCH (09:18)
[2018-08-13] MEDS: ASPIRIN 81 MG TABLET, CHEWABLE NG SCH (09:18)
[2018-08-13] MEDS: CARVEDILOL 12.5 MG TABLET NG SCH ×2 (09:18→21:41)
--- NOTE | 2018-08-13 09:24 | PDOC PROGRESS REPORT ---
Subjective Progress Note for:: 08/13/18 Subjective:: 43 year old male who presented to the emergency room via EMS with a history of acute episodes of agitation, headache and syncope. He was found by his at his home apparently having fallen asleep without using his BiPAP and she noted that he was cyanotic and hard to arouse. She put his BiPAP back on him and while she was trying to assist him he aroused suddenly and did not recognize her and became very agitated and combative and then as he improved he complained of a severe headache (the worst of his life) and then developed a sudden syncopal episode. This alarmed his and she called EMS. The patient had another similar episode in the emergency vehicle and again had a similar episode in the emergency room under the observation of the emergency room physician and staff. His oxygen saturations were noted to vary wildly in the emergency room and to guarantee his best oxygenation and reduce his agitation and anxiety he was intubated in placed on a ventilator. His CT scan shows no evidence of an acute intracranial process. Patient was subsequently admitted to the hospital for further evaluation and treatment in the ICU. 08/12/[id number]-old male admitted to the ICU for acute episodes of agitation, headaches and syncope. Patient was cyanotic and hard to arouse at home. He was placed back on BiPAP and EMS was called on the way to the hospital he became very agitated and combative and complained of severe headaches .. CTA of the head was done, neck CTa was done CT head was done everything came back negative for bleed or stroke. Patient is presently on 40% oxygen on propofol 50 mcg/kg/min and Versed 7.5 mg/h. Presently on 40% oxygen. ABG this morning pH is 7.34/PCO2 50 / PO2 72.8 /bicarb is 26. Plan is to keep him intubated and we may try weaning process tomorrow. CT scans indicates bilateral opacifications in the lung howell. And also suggestive diffusely enlarged thyroid gland with a goiter-like appearance. To check his TSH levels tomorrow. 08/13/[id number]-old male admitted for altered mental status and agitation headaches and syncope he was intubated in the emergency room transferred to ICU no acute events in the last 24 hours. Patient is afebrile. Has a NG tube. Patient is on minimal sedation not in distress. Still on mechanical ventilation with PEEP of 540% oxygen pulse ox is 97%. Family members at bedside they are happy with the progress. Probably we may plan to weaning parameters from tomorrow. Chest x-ray for today and tomorrow are requested. Reason For Visit: ACUTE ON CHRONIC RESPIRATORY FAILURE WITH Physical Exam Vital Signs: Temp Pulse Resp BP Pulse Ox 97.7 F 64 20 165/85 H 97 08/13/18 07:32 08/13/18 08:00 08/13/18 07:32 08/13/18 07:32 08/13/18 07:32 Intake & Output 08/12/18 08/13/18 08/14/18 06:59 06:59 06:59 Intake Total 1497 5355 105 Output Total 550 1175 70 Balance 947 4180 35 Weight 154.7 kg 160.1 kg General appearance: PRESENT: morbidly obese, other - Patient is intubated under mechanical ventilation. On sedation. Head exam: PRESENT: atraumatic Eye exam: PRESENT: PERRLA Mouth exam: PRESENT: moist, tongue midline Neck exam: ABSENT: carotid bruit, JVD, lymphadenopathy, thyromegaly Respiratory exam: PRESENT: decreased breath sounds Cardiovascular exam: PRESENT: RRR. ABSENT: diastolic murmur, rubs, systolic murmur GI/Abdominal exam: PRESENT: normal bowel sounds, soft. ABSENT: distended, guarding, mass, organolmegaly, rebound, tenderness Rectal exam: PRESENT: deferred Extremities exam: PRESENT: +1 edema Neurological exam: PRESENT: other - Patient is intubated under sedation. Psychiatric exam: PRESENT: appropriate affect, normal mood. ABSENT: homicidal ideation, suicidal ideation Results Laboratory Results: 08/13/18 04:15 08/13/18 04:15 08/12/18 08/12/18 08/12/18 11:34 11:34 11:34 WBC RBC Hgb Hct MCV MCH MCHC RDW Plt Count Seg Neutrophils % Lymphocytes % Monocytes % Eosinophils % Basophils % Absolute Neutrophils Absolute Lymphocytes Absolute Monocytes Absolute Eosinophils Absolute Basophils Carbonic Acid HCO3/H2CO3 Ratio ABG pH ABG pCO2 ABG pO2 ABG HCO3 ABG O2 Saturation ABG Base Excess Carboxyhemoglobin FiO2 Sodium Potassium Chloride Carbon Dioxide Anion Gap BUN Creatinine Est GFR ( Amer) Est GFR (Non-Af Amer) Glucose Calcium Magnesium Total Bilirubin AST ALT Alkaline Phosphatase Total Protein Albumin TSH Free T4 Free T3 pg/mL Fluid Tube Number 1 4 CSF Volume 31.5 31.5 CSF Appearance CLEAR CLEAR CSF Color COLORLESS COLORLESS CSF WBC 1 1 CSF RBC 0 0 CSF Glucose 50 CSF Total Protein 63 H 08/12/18 08/13/18 08/13/18 11:41 04:15 04:15 WBC 3.7 L RBC 3.26 L Hgb 10.5 L D Hct 31.3 L MCV 96 MCH 32.2 MCHC 33.5 RDW 13.2 Plt Count 90 L Seg Neutrophils % 68.6 Lymphocytes % 19.0 Monocytes % 7.9 Eosinophils % 3.8 Basophils % 0.7 Absolute Neutrophils 2.5 Absolute Lymphocytes 0.7 Absolute Monocytes 0.3 Absolute Eosinophils 0.1 Absolute Basophils 0.0 Carbonic Acid HCO3/H2CO3 Ratio ABG pH ABG pCO2 ABG pO2 ABG HCO3 ABG O2 Saturation ABG Base Excess Carboxyhemoglobin 1.4 FiO2 Sodium 139.9 Potassium 3.9 Chloride 104 Carbon Dioxide 28 Anion Gap 8 BUN 14 Creatinine 0.82 Est GFR ( Amer) > 60 Est GFR (Non-Af Amer) > 60 Glucose 85 Calcium 8.5 Magnesium 2.1 Total Bilirubin 0.6 AST 92 H ALT 61 Alkaline Phosphatase 83 Total Protein 5.7 L Albumin 3.2 L TSH Free T4 Free T3 pg/mL Fluid Tube Number CSF Volume CSF Appearance CSF Color CSF WBC CSF RBC CSF Glucose CSF Total Protein 08/13/18 08/13/18 04:15 04:35 WBC RBC Hgb Hct MCV MCH MCHC RDW Plt Count Seg Neutrophils % Lymphocytes % Monocytes % Eosinophils % Basophils % Absolute Neutrophils Absolute Lymphocytes Absolute Monocytes Absolute Eosinophils Absolute Basophils Carbonic Acid 1.45 H HCO3/H2CO3 Ratio 19:1 ABG pH 7.39 ABG pCO2 48.1 H ABG pO2 71.7 L ABG HCO3 28.7 H ABG O2 Saturation 94.2 ABG Base Excess 3.1 Carboxyhemoglobin FiO2 40% Sodium Potassium Chloride Carbon Dioxide Anion Gap BUN Creatinine Est GFR ( Amer) Est GFR (Non-Af Amer) Glucose Calcium Magnesium Total Bilirubin AST ALT Alkaline Phosphatase Total Protein Albumin TSH 2.37 Free T4 1.14 Free T3 pg/mL 3.37 Fluid Tube Number CSF Volume CSF Appearance CSF Color CSF WBC CSF RBC CSF Glucose CSF Total Protein 08/11/18 08/11/18 20:56 20:56 Creatine Kinase 64 CK-MB (CK-2) 0.49 Troponin I < 0.012 Impressions: Chest X-Ray 08/11/18 20:56 IMPRESSION: Left medial basilar dense consolidation. Endotracheal tube tip overlies the mid trachea, approximately 5.6 cm above the level of the natanael. Orogastric catheter is present with tip overlying the body of the stomach. Head CT 08/11/18 20:56 IMPRESSION: No acute intracranial findings. EVIDENCE OF ACUTE STROKE: NO. Chest CT 08/11/18 21:46 IMPRESSION: Limited exam as a result of body habitus and lack of contrast Areas of atelectasis in the lower lobes bilaterally and in the upper lobes bilaterally Enlarged liver and spleen Probable hilar adenopathy Endotracheal and nasogastric tubes in place Head CTA 08/11/18 21:46 IMPRESSION: Significantly suboptimal exam due to venous interference and contrast bolus. However as visualized, the CTA portion of the exam is unremarkable. Diffusely enlarged and nodular appearance to the thyroid gland. This likely reflects goitrous change. Correlate with thyroid function. Airspace opacities in the visualized lung apices bilaterally. TECHNICAL DOCUMENTATION: Quality ID # 436: Final reports with documentation of one or more dose reduction techniques (e.g., Automated exposure control, adjustment of the mA and/or kV according to patient size, use of iterative reconstruction technique) copyright 2010 [employer]- All Rights Reserved Neck CTA 08/11/18 21:46 IMPRESSION: Significantly suboptimal exam due to venous interference and contrast bolus. However as visualized, the CTA portion of the exam is unremarkable. Diffusely enlarged and nodular appearance to the thyroid gland. This likely reflects goitrous change. Correlate with thyroid function. Airspace opacities in the visualized lung apices bilaterally. TECHNICAL DOCUMENTATION: Quality ID # 436: Final reports with documentation of one or more dose reduction techniques (e.g., Automated exposure control, adjustment of the mA and/or kV according to patient size, use of iterative reconstruction technique) copyright 2011 [employer]- All Rights Reserved Assessment and Plan - Diagnosis (1) Acute and chronic respiratory failure with hypoxia Is this a current diagnosis for this admission?: Yes Plan: Patient will continue on mechanical ventilation. Settings will be adjusted according to need based on ABGs. Patient will be maintained on mechanical ventilation until such time as he can be treated with continuous BiPAP which is his norm. 08/12/2018-patient is intubated settings are 40% oxygen with PEEP of 5 SIMV rate of 12 and tidal volume of 500. Presently on Versed and propofol sedation. 08/13/2018-patient is admitted with acute on chronic respiratory failure with hypoxia presently on 40% oxygen with PEEP of 5, respiratory rate of 1200 tidal volume of 500 pulse ox is 97% today. Chest bilateral entry was decreased, no wheezing no crepitations. Patient is on minimal sedation. Planning to start weaning protocol from tomorrow. (2) Syncope and collapse Is this a current diagnosis for this admission?: Yes Plan: Patient will be monitored closely throughout his hospital stay. When he is able to be off ventilator he will be further evaluated for possible causes of his syncope if no clear etiology has yet been determined. 08/12/2018-patient is admitted for syncope and collapse. Work-up so far negative. Unable to do the MRI because patient is intubated. 08/13/2018-patient was admitted for syncope and collapse work-up was negative. Once he is extubated premed to for MRI of the brain without contrast. (3) Encephalopathy acute Is this a current diagnosis for this admission?: Yes Plan: A urine drug screen will be obtained. Interventional radiology will be consulted for a lumbar puncture for chemistry and culture evaluation. Daily CBCs, comprehensive metabolic profiles, and magnesium levels will be obtained. A thyroid profile will be obtained x1. Further evaluation for causes of acute encephalopathy will be entertained as appropriate. 08/12/2018-patient is admitted with altered mental status/acute encephalopathy. Urine drug screen is negative. Plan to do the daily CBCs magnesium and CMP. Plan to do the LP. Requested for carboxyhemoglobin levels to rule out any carbon monoxide poisoning. Plan to arrange for the LP today. 08/13/2018-patient is admitted with altered mental status/acute encephalopathy causes unknown at this point. Urine drug screen is negative. Carboxyhemoglobin came back 1.4 within normal range. LP was done because of the altered mental status so far reports are negative for any infection. (4) Pneumonia Is this a current diagnosis for this admission?: Yes Plan: 08/12/2018-CT scan suggestive of bilateral opacifications in the lung howell. Most likely community-acquired pneumonia. Most likely gram-positive organisms. Presently on IV Rocephin and IV levo floxacillin is added to the medication. Blood cultures are negative so far. 08/13/2018-suggestive of bilateral opacifications most likely secondary to community-acquired pneumonia presently on IV Rocephin and IV levo floxacillin. Blood cultures are negative so far. (5) Morbid obesity with BMI of 40.0-44.9, adult Is this a current diagnosis for this admission?: No - Time Time Spent with patient: 15-24 minutes Medications reviewed and adjusted accordingly: Yes Anticipated discharge: Home
[2018-08-13] MEDS ORDERED: FUROSEMIDE 20 MG TABLET NG SCH (10:00)
[2018-08-13] MEDS: FENTANYL CITRATE INJ/PF 100 MCG/2 ML AMPUL IV PRN ×2 (10:11→16:17)
[2018-08-13] MEDS: METHYLPREDNISOLONE INJ 40 MG/1 ML SDV IV SCH ×2 (10:16→21:42)
--- NOTE | 2018-08-13 10:19 | RADIOLOGY REPORT (SQ) ---
EXAM DESCRIPTION: CHEST SINGLE VIEW COMPLETED DATE/TIME: 08/13/2018 9:51 am REASON FOR STUDY: resp failure COMPARISON: CT chest 08/11/2018 AP chest 08/11/2018 EXAM PARAMETERS: NUMBER OF VIEWS: One view. TECHNIQUE: Single frontal radiographic view of the chest acquired. RADIATION DOSE: NA LIMITATIONS: None. FINDINGS: The endotracheal tube tip is in the uppermost trachea, at the level of C7. This report wa s called to the patient's nurse Brenda in the ICU, 1000 hours 08/13/2018. LUNGS AND PLEURA: Persistent consolidation left lower lobe atelectasis versus pneumonia. Right lung grossly clear. No pleural effusions or pneumothorax. 2 MEDIASTINUM AND HILAR STRUCTURES: No masses. Contour normal. HEART AND VASCULAR STRUCTURES: Stable cardiomegaly BONES: No acute findings. HARDWARE: Endotracheal tube tip is at the upper most trachea. This report was called to the patient' s nurse Brenda in the ICU at 1000 hours 08/13/2018. Nasogastric tube tip and side port in the stomach. OTHER: No other significant finding. IMPRESSION: Persistent left lower lobe consolidation worrisome for pneumonia. Endotracheal tube tip in the uppermost trachea. Findings called to the patient's nurse in ICU TECHNICAL DOCUMENTATION: JOB ID: [id number] [employer]- All Rights Reserved Reading location - IP/workstation name: [email or web address]
[2018-08-13] MEDS: LEVOFLOXACIN 750 MG/D5W RTU 750 MG/150 ML RTUPB IV SCH (11:34)
--- NOTE | 2018-08-13 12:07 | RADIOLOGY REPORT (SQ) ---
EXAM DESCRIPTION: CHEST SINGLE VIEW COMPLETED DATE/TIME: 08/13/2018 11:07 am REASON FOR STUDY: resp failure COMPARISON: Chest films 08/13/2018, 08/11/2018 CT chest 08/11/2018 EXAM PARAMETERS: NUMBER OF VIEWS: One view. TECHNIQUE: Single frontal radiographic view of the chest acquired. RADIATION DOSE: NA LIMITATIONS: None. FINDINGS: LUNGS AND PLEURA: There is clearing of the bilateral upper lobe airspace disease as compar ed to CT chest 08/11/2018. Persistent left retrocardiac consolidation is present atelectasis versus pneumonia. No pleural effusions. No pneumothorax. MEDIASTINUM AND HILAR STRUCTURES: No masses. Contour normal. HEART AND VASCULAR STRUCTURES: Stable mild cardiomegaly BONES: No acute findings. HARDWARE: Endotracheal tube tip 7 cm above the natanael, at the thoracic inlet. Nasogastric tube tip a nd side port in the stomach. OTHER: No other significant finding. IMPRESSION: Persistent left retrocardiac consolidation atelectasis versus pneumonia. Endotracheal tube tip 7 cm above the natanael, at the thoracic inlet. Nasogastric tube tip and side po rt in the stomach. TECHNICAL DOCUMENTATION: JOB ID: [id number] [employer]- All Rights Reserved Reading location - IP/workstation name: [email or web address]
--- NOTE | 2018-08-13 13:14 | RADIOLOGY REPORT (SQ) ---
EXAM DESCRIPTION: CHEST SINGLE VIEW COMPLETED DATE/TIME: 08/13/2018 1:04 pm REASON FOR STUDY: Advancement of ETT COMPARISON: CT CHEST 08/11/2018 AP CHEST 08/13/2018 EXAM PARAMETERS: NUMBER OF VIEWS: One view. TECHNIQUE: Single frontal radiographic view of the chest acquired. RADIATION DOSE: NA LIMITATIONS: None. FINDINGS: LUNGS AND PLEURA: Persistent airspace disease in the left lung base atelectasis versus pne umonia. Right lung grossly clear. No pleural effusions or pneumothorax. MEDIASTINUM AND HILAR STRUCTURES: No masses. Contour normal. HEART AND VASCULAR STRUCTURES: Heart normal in size. Normal vasculature. BONES: No acute findings. HARDWARE: Endotracheal tube tip is 3 cm above the natanael. Nasogastric tube tip and side port in the stomach. OTHER: No other significant finding. IMPRESSION: Endotracheal tube tip 3 cm above the natanael. Nasogastric tube tip and side port in the stomach. Persistent left basilar consolidation atelectasis versus pneumonia TECHNICAL DOCUMENTATION: JOB ID: [id number] [employer]- All Rights Reserved Reading location - IP/workstation name: [email or web address]
[2018-08-13] MEDS ORDERED: FUROSEMIDE INJ/PF 40 MG/4 ML SDV IV ONE (14:30)
[2018-08-13] MEDS: ATORVASTATIN CALCIUM 40 MG TABLET NG SCH (21:41)
[2018-08-14] MEDS: DILTIAZEM HCL 60 MG TABLET NG SCH ×4 (00:15→17:10)
[2018-08-14] MEDS: FENTANYL CITRATE INJ/PF 100 MCG/2 ML AMPUL IV PRN ×3 (00:17→21:35)
[2018-08-14] MEDS: PROPOFOL 1,000 MG/100 ML INFUS..BTL IV PRN ×11 (01:34→23:39)
[2018-08-14] MEDS ORDERED: HYDRALAZINE HCL INJ/PF 20 MG/1 ML SDV ONE (03:29)
[2018-08-14] MEDS: HYDRALAZINE HCL INJ/PF 20 MG/1 ML SDV IV PRN ×2 (03:33→23:38)
[2018-08-14] MEDS: RINGERS SOLUTION,LACTATED 1,000 ML IV PRN ×2 (03:56→08:09)
[2018-08-14 04:28] LABS: ARTERIAL BLOOD BASE EXCESS 4.2 mmol/L; ARTERIAL BLOOD H2CO3 1.35 mmol/L (1.05-1.35); ARTERIAL BLOOD HCO3 29.2 mmol/L (20-24); ARTERIAL BLOOD O2 SATURATION 94.8 % (94-98); ARTERIAL BLOOD PCO2 44.9 mmHg (35-45); ARTERIAL BLOOD PH 7.43 (7.35-7.45); ARTERIAL BLOOD PO2 71.9 mmHg (80-100); ARTERIAL BLOOD TOTAL CO2 30.6 mmol/L (23-27)
[2018-08-14 04:53] LABS: ABSOLUTE LYMPHOCYTES (AUTO) 0.3 10^3/uL (0.5-4.7); ABSOLUTE MONOCYTES (AUTO) 0.1 10^3/uL (0.1-1.4); ABSOLUTE NEUT (AUTO) 3.3 10^3/uL (1.7-8.2); BASOPHILS % (AUTO) 0.3 % (0-2); EOSINOPHILS % (AUTO) 0.1 % (0-6); HEMATOCRIT 33.7 % (37.9-51.0); HEMOGLOBIN 11.5 g/dL (13.5-17.0); LYMPHOCYTES % (AUTO) 8.5 % (13-45); MEAN CORPUSCULAR HEMOGLOBIN 32.1 pg (27.0-33.4); MEAN CORPUSCULAR HGB CONC 34.1 g/dL (32.0-36.0); MEAN CORPUSCULAR VOLUME 94 fl (80-97); MONOCYTES % (AUTO) 2.2 % (3-13); RED BLOOD COUNT 3.57 10^6/uL (4.35-5.55); SEGMENTED NEUTROPHILS % (AUTO) 88.9 % (42-78); TOTAL CELLS COUNTED % (AUTO) 100 %; WHITE BLOOD COUNT 3.7 10^3/uL (4.0-10.5)
[2018-08-14 05:11] LABS: ALANINE AMINOTRANSFERASE 61 U/L (21-72); ALBUMIN 3.6 g/dL (3.5-5.0); ALKALINE PHOSPHATASE 116 U/L (38-126); ANION GAP 11 (5-19); ASPARTATE AMINO TRANSFERASE 74 U/L (17-59); BILIRUBIN,DIRECT 0.6 mg/dL (0.0-0.4); BILIRUBIN,TOTAL 0.6 mg/dL (0.2-1.3); BLOOD UREA NITROGEN 13 mg/dL (7-20); CALCIUM 9.3 mg/dL (8.4-10.2); CARBON DIOXIDE 25 mmol/L (22-30); CHLORIDE 105 mmol/L (98-107); GLUCOSE 166 mg/dL (75-110); POTASSIUM 4.4 mmol/L (3.6-5.0); SODIUM 140.5 mmol/L (137-145); TOTAL PROTEIN 6.1 g/dL (6.3-8.2)
[2018-08-14 05:21] LABS: PLATELET COUNT 94 10^3/uL (150-450)
[2018-08-14] MEDS: MIDAZOLAM HCL 50 MG/100 ML RTUINJ IV PRN ×2 (05:43→14:15)
[2018-08-14] MEDS: CLONIDINE HCL 0.1 MG TABLET NG SCH ×3 (05:44→21:36)
[2018-08-14] MEDS: FONDAPARINUX SODIUM INJ 2.5 MG/0.5 ML DISP.SYRIN SUBCUT SCH (08:00)
[2018-08-14] MEDS ORDERED: CEFEPIME 2 GM/D5W RTU 2 GM/50 ML RTUPB IV SCH (08:00)
--- NOTE | 2018-08-14 08:46 | RADIOLOGY REPORT (SQ) ---
EXAM DESCRIPTION: CHEST SINGLE VIEW COMPLETED DATE/TIME: 08/14/2018 6:20 am REASON FOR STUDY: resp failure COMPARISON: None. EXAM PARAMETERS: NUMBER OF VIEWS: One view. TECHNIQUE: Single frontal radiographic view of the chest acquired. RADIATION DOSE: NA LIMITATIONS: None. FINDINGS: LUNGS AND PLEURA: Interval decrease in left basilar infiltrate. MEDIASTINUM AND HILAR STRUCTURES: No masses. Contour normal. HEART AND VASCULAR STRUCTURES: The heart remains borderline in size. Pulmonary vasculature normal. BONES: No acute findings. HARDWARE: Endotracheal tube above natanael. The endotracheal tube could be advanced 3 cm. NG tube ove rlying stomach. OTHER: No other significant finding. IMPRESSION: No significant interval change. TECHNICAL DOCUMENTATION: JOB ID: [id number] [employer] All Rights Reserved Reading location - IP/workstation name: [email or web address]
[2018-08-14 08:55] LABS: APPEARANCE,URINE SLIGHTLY-CLOUDY; BILIRUBIN,URINE NEGATIVE (NEGATIVE); COLOR,URINE YELLOW; GLUCOSE, URINE NEGATIVE (NEGATIVE); KETONES,URINE 20 mg/dL (NEGATIVE); LEUKOCYTE ESTERASE,URINE NEGATIVE (NEGATIVE); NITRITE,URINE NEGATIVE (NEGATIVE); PROTEIN,URINE NEGATIVE (NEGATIVE); URINE SPECIFIC GRAVITY 1.026; UROBILINOGEN,URINE NEGATIVE mg/dL (<2.0)
--- NOTE | 2018-08-14 09:15 | PDOC PROGRESS REPORT ---
Subjective Progress Note for:: 08/14/18 Subjective:: 43 year old male who presented to the emergency room via EMS with a history of acute episodes of agitation, headache and syncope. He was found by his at his home apparently having fallen asleep without using his BiPAP and she noted that he was cyanotic and hard to arouse. She put his BiPAP back on him and while she was trying to assist him he aroused suddenly and did not recognize her and became very agitated and combative and then as he improved he complained of a severe headache (the worst of his life) and then developed a sudden syncopal episode. This alarmed his and she called EMS. The patient had another similar episode in the emergency vehicle and again had a similar episode in the emergency room under the observation of the emergency room physician and staff. His oxygen saturations were noted to vary wildly in the emergency room and to guarantee his best oxygenation and reduce his agitation and anxiety he was intubated in placed on a ventilator. His CT scan shows no evidence of an acute intracranial process. Patient was subsequently admitted to the hospital for further evaluation and treatment in the ICU. 08/12/[id number]-zevx-old male admitted to the ICU for acute episodes of agitation, headaches and syncope. Patient was cyanotic and hard to arouse at home. He was placed back on BiPAP and EMS was called on the way to the hospital he became very agitated and combative and complained of severe headaches .. CTA of the head was done, neck CTa was done CT head was done everything came back negative for bleed or stroke. Patient is presently on 40% oxygen on propofol 50 mcg/kg/min and Versed 7.5 mg/h. Presently on 40% oxygen. ABG this morning pH is 7.34/PCO2 50 / PO2 72.8 /bicarb is 26. Plan is to keep him intubated and we may try weaning process tomorrow. CT scans indicates bilateral opacifications in the lung howell. And also suggestive diffusely enlarged thyroid gland with a goiter-like appearance. To check his TSH levels tomorrow. 08/13/[id number]-wxpt-old male admitted for altered mental status and agitation headaches and syncope he was intubated in the emergency room transferred to ICU no acute events in the last 24 hours. Patient is afebrile. Has a NG tube. Patient is on minimal sedation not in distress. Still on mechanical ventilation with PEEP of 540% oxygen pulse ox is 97%. Family members at bedside they are happy with the progress. Probably we may plan to weaning parameters from tomorrow. Chest x-ray for today and tomorrow are requested. 08/14/[id number]-vixs-old male admitted for altered mental status and agitation altered mental status causes unknown. Work-up was negative so far. He was intubated presently still on mechanical ventilation. ABG this morning pH is 7.43/PCO2 45/PO2 72 bicarb is 29 oxygen saturation is 95% this is on 55% oxygen. X-ray done this morning indicates improvement in the left lower lobe infiltrate. Patient is still on sedation. To discuss the medication with the pharmacy about management of pulmonary hypertension. The medications presently is on for pulmonary hypertension unfortunately not be crushed. Reason For Visit: ACUTE ON CHRONIC RESPIRATORY FAILURE WITH Physical Exam Vital Signs: Temp Pulse Resp BP Pulse Ox 97.7 F 70 13 150/77 H 94 08/14/18 08:00 08/14/18 08:00 08/14/18 08:00 08/14/18 08:00 08/14/18 08:00 Intake & Output 08/13/18 08/14/18 08/15/18 06:59 06:59 06:59 Intake Total 5355 4746 417 Output Total 1175 5810 100 Balance 4180 -1064 317 Weight 160.1 kg 158 kg General appearance: PRESENT: other - Obese male ventilated under sedation. Head exam: PRESENT: atraumatic Eye exam: PRESENT: PERRLA Neck exam: ABSENT: carotid bruit, JVD, lymphadenopathy, thyromegaly Respiratory exam: PRESENT: decreased breath sounds Cardiovascular exam: PRESENT: RRR. ABSENT: diastolic murmur, rubs, systolic murmur GI/Abdominal exam: PRESENT: normal bowel sounds, soft. ABSENT: distended, guarding, mass, organolmegaly, rebound, tenderness Rectal exam: PRESENT: deferred Extremities exam: PRESENT: +1 edema Neurological exam: PRESENT: other - She is intubated under mechanical ventilation, under sedation. Results Laboratory Results: 08/14/18 03:50 08/14/18 03:50 08/14/18 08/14/18 08/14/18 03:50 03:50 04:05 WBC 3.7 L RBC 3.57 L Hgb 11.5 L Hct 33.7 L MCV 94 MCH 32.1 MCHC 34.1 RDW 13.0 Plt Count 94 L Seg Neutrophils % 88.9 H Lymphocytes % 8.5 L Monocytes % 2.2 L Eosinophils % 0.1 Basophils % 0.3 Absolute Neutrophils 3.3 Absolute Lymphocytes 0.3 L Absolute Monocytes 0.1 Absolute Eosinophils 0.0 Absolute Basophils 0.0 Carbonic Acid 1.35 HCO3/H2CO3 Ratio 21:1 ABG pH 7.43 ABG pCO2 44.9 ABG pO2 71.9 L ABG HCO3 29.2 H ABG O2 Saturation 94.8 ABG Base Excess 4.2 FiO2 55% Sodium 140.5 Potassium 4.4 Chloride 105 Carbon Dioxide 25 Anion Gap 11 BUN 13 Creatinine 0.82 Est GFR ( Amer) > 60 Est GFR (Non-Af Amer) > 60 Glucose 166 H Calcium 9.3 Magnesium 2.3 Total Bilirubin 0.6 AST 74 H ALT 61 Alkaline Phosphatase 116 Total Protein 6.1 L Albumin 3.6 Urine Color Urine Appearance Urine pH Ur Specific [place] Urine Protein Urine Glucose (UA) Urine Ketones Urine Blood Urine Nitrite Ur Leukocyte Esterase Urine WBC (Auto) Urine RBC (Auto) 08/14/18 08:00 WBC RBC Hgb Hct MCV MCH MCHC RDW Plt Count Seg Neutrophils % Lymphocytes % Monocytes % Eosinophils % Basophils % Absolute Neutrophils Absolute Lymphocytes Absolute Monocytes Absolute Eosinophils Absolute Basophils Carbonic Acid HCO3/H2CO3 Ratio ABG pH ABG pCO2 ABG pO2 ABG HCO3 ABG O2 Saturation ABG Base Excess FiO2 Sodium Potassium Chloride Carbon Dioxide Anion Gap BUN Creatinine Est GFR ( Amer) Est GFR (Non-Af Amer) Glucose Calcium Magnesium Total Bilirubin AST ALT Alkaline Phosphatase Total Protein Albumin Urine Color YELLOW Urine Appearance SLIGHTLY-CLOUDY Urine pH 5.0 Ur Specific [place] 1.026 Urine Protein NEGATIVE Urine Glucose (UA) NEGATIVE Urine Ketones 20 H Urine Blood NEGATIVE Urine Nitrite NEGATIVE Ur Leukocyte Esterase NEGATIVE Urine WBC (Auto) 2 Urine RBC (Auto) 0 08/11/18 08/11/18 20:56 20:56 Creatine Kinase 64 CK-MB (CK-2) 0.49 Troponin I < 0.012 Impressions: Head CT 08/11/18 20:56 IMPRESSION: No acute intracranial findings. EVIDENCE OF ACUTE STROKE: NO. Chest CT 08/11/18 21:46 IMPRESSION: Limited exam as a result of body habitus and lack of contrast Areas of atelectasis in the lower lobes bilaterally and in the upper lobes bilaterally Enlarged liver and spleen Probable hilar adenopathy Endotracheal and nasogastric tubes in place Head CTA 08/11/18 21:46 IMPRESSION: Significantly suboptimal exam due to venous interference and contrast bolus. However as visualized, the CTA portion of the exam is unremarkable. Diffusely enlarged and nodular appearance to the thyroid gland. This likely reflects goitrous change. Correlate with thyroid function. Airspace opacities in the visualized lung apices bilaterally. TECHNICAL DOCUMENTATION: Quality ID # 436: Final reports with documentation of one or more dose reduction techniques (e.g., Automated exposure control, adjustment of the mA and/or kV according to patient size, use of iterative reconstruction technique) copyright 2010 [employer]- All Rights Reserved Neck CTA 08/11/18 21:46 IMPRESSION: Significantly suboptimal exam due to venous interference and contrast bolus. However as visualized, the CTA portion of the exam is unremarkable. Diffusely enlarged and nodular appearance to the thyroid gland. This likely reflects goitrous change. Correlate with thyroid function. Airspace opacities in the visualized lung apices bilaterally. TECHNICAL DOCUMENTATION: Quality ID # 436: Final reports with documentation of one or more dose reduction techniques (e.g., Automated exposure control, adjustment of the mA and/or kV according to patient size, use of iterative reconstruction technique) copyright 2010 [employer]- All Rights Reserved Chest X-Ray 08/14/18 09:15 IMPRESSION: No significant interval change. Assessment and Plan - Diagnosis (1) Acute and chronic respiratory failure with hypoxia Is this a current diagnosis for this admission?: Yes Plan: Patient will continue on mechanical ventilation. Settings will be adjusted according to need based on ABGs. Patient will be maintained on mechanical ventilation until such time as he can be treated with continuous BiPAP which is his norm. 08/12/2018-patient is intubated settings are 40% oxygen with PEEP of 5 SIMV rate of 12 and tidal volume of 500. Presently on Versed and propofol sedation. 08/13/2018-patient is admitted with acute on chronic respiratory failure with hypoxia presently on 40% oxygen with PEEP of 5, respiratory rate of 12 tidal volume of 500 pulse ox is 97% today. Chest bilateral entry was decreased, no wheezing no crepitations. Patient is on minimal sedation. Planning to start weaning protocol from tomorrow. 08/14/2018-patient was admitted for acute on chronic respiratory failure with hypoxia. Presently on 55% oxygen with PEEP of 5 respiratory rate of 12 tidal volume of 500. Pulse ox is 94 to 95%. Bilateral entry was decreased no wheezing no crepitations. Chest x-ray shows improvement in left lower lobe infiltrate. He is to do daily ABGs and chest x-rays. To restart on patient's pulmonary hypertension medication. (2) Syncope and collapse Is this a current diagnosis for this admission?: Yes Plan: Patient will be monitored closely throughout his hospital stay. When he is able to be off ventilator he will be further evaluated for possible causes of his syncope if no clear etiology has yet been determined. 08/12/2018-patient is admitted for syncope and collapse. Work-up so far negative. Unable to do the MRI because patient is intubated. 08/13/2018-patient was admitted for syncope and collapse work-up was negative. Once he is extubated premed to for MRI of the brain without contrast. 08/14/2018-patient was admitted for syncope and collapse. So far the work-up was negative. LP was negative. Blood cultures and sputum cultures are negative. (3) Encephalopathy acute Is this a current diagnosis for this admission?: Yes Plan: A urine drug screen will be obtained. Interventional radiology will be consulted for a lumbar puncture for chemistry and culture evaluation. Daily CBCs, comprehensive metabolic profiles, and magnesium levels will be obtained. A thyroid profile will be obtained x1. Further evaluation for causes of acute encephalopathy will be entertained as appropriate. 08/12/2018-patient is admitted with altered mental status/acute encephalopathy. U rine drug screen is negative. Plan to do the daily CBCs magnesium and CMP. Plan to do the LP. Requested for carboxyhemoglobin levels to rule out any carbon monoxide poisoning. Plan to arrange for the LP today. 08/13/2018-patient is admitted with altered mental status/acute encephalopathy causes unknown at this point. Urine drug screen is negative. Carboxyhemoglobin came back 1.4 within normal range. LP was done because of the altered mental status so far reports are negative for any infection. 08/14/2018-patient was admitted with altered mental status/acute encephalopathy causes unknown. Work-up was negative. Blood cultures are negative urine cultures are negative. LP was negative. CT head was negative. CT of the neck was negative. Chest x-ray suggestive of consolidation. Which was improving. Presently on cefepime and levo floxacillin. (4) Pneumonia Is this a current diagnosis for this admission?: Yes Plan: 08/12/2018-CT scan suggestive of bilateral opacifications in the lung howell. Most likely community-acquired pneumonia. Most likely gram-positive organisms. Presently on IV Rocephin and IV levo floxacillin is added to the medication. Blood cultures are negative so far. 08/13/2018-suggestive of bilateral opacifications most likely secondary to community-acquired pneumonia presently on IV levo floxacillin. Blood cultures are negative so far. 08/14/2018-chest x-ray suggestive of bilateral opacifications, chest x-ray this morning indicates improving left lower lobe infiltrate. Patient has most likely community-acquired pneumonia. Presently on cefepime and IV levo floxacillin. Blood cultures and sputum cultures are negative so far. (5) Morbid obesity with BMI of 40.0-44.9, adult Is this a current diagnosis for this admission?: No - Time Time Spent with patient: 15-24 minutes Medications reviewed and adjusted accordingly: Yes Anticipated discharge: Home
[2018-08-14] MEDS: AMLODIPINE BESYLATE 10 MG TABLET PO SCH (10:07)
[2018-08-14] MEDS: LORATADINE 10 MG TABLET NG SCH (10:07)
[2018-08-14] MEDS: ASPIRIN 81 MG TABLET, CHEWABLE NG SCH (10:07)
[2018-08-14] MEDS: CEFEPIME HCL 2 GM in DEXTROSE 5%-WATER 50 ML IV SCH ×2 (10:07→21:37)
[2018-08-14] MEDS: METHYLPREDNISOLONE INJ 40 MG/1 ML SDV IV SCH ×2 (10:07→21:36)
[2018-08-14] MEDS: FLUTICASONE NASAL SPRAY 50 MCG/SPRY 120 SPRAY/16 GM NASL SCH (10:07)
[2018-08-14] MEDS: ATENOLOL 50 MG TABLET NG SCH (10:08)
[2018-08-14] MEDS: CARVEDILOL 12.5 MG TABLET NG SCH ×2 (10:08→21:37)
[2018-08-14] MEDS: FUROSEMIDE 20 MG TABLET NG SCH (10:09)
[2018-08-14] MEDS: LEVOFLOXACIN 750 MG/D5W RTU 750 MG/150 ML RTUPB IV SCH (11:30)
--- NOTE | 2018-08-14 12:20 | RADIOLOGY REPORT (SQ) ---
EXAM DESCRIPTION: CHEST SINGLE VIEW COMPLETED DATE/TIME: 08/14/2018 12:09 pm REASON FOR STUDY: Reverify ETT placement COMPARISON: None. NUMBER OF VIEWS: One view. TECHNIQUE: Single frontal radiographic image of the chest acquired. LIMITATIONS: None. FINDINGS: LUNGS AND PLEURA: Stable appearance. MEDIASTINUM AND HILAR STRUCTURES: Stable heart size and mediastinal structures. HEART AND VASCULAR STRUCTURES: Stable appearance. SUPPORT DEVICES: Endotracheal tube has been repositioned and now lies 3.4 cm above the natanael. NG tu be remains in place. BONES: No acute findings. OTHER: No other significant finding. IMPRESSION: Endotracheal tube has been advanced and now lies 3.4 cm above the natanael. No other inte rval change. TECHNICAL DOCUMENTATION: JOB ID: [id number] [employer]- All Rights Reserved Reading location - IP/workstation name: [email or web address]
[2018-08-14] MEDS: AMINO AC/PROTEIN HYDR/WHEY PRO 11 GM/45 ML PKT NG SCH ×2 (13:16→17:16)
[2018-08-14 14:26] LABS: ARTERIAL BLOOD H2CO3 1.38 mmol/L (1.05-1.35); ARTERIAL BLOOD HCO3 30.1 mmol/L (20-24); ARTERIAL BLOOD PH 7.43 (7.35-7.45); ARTERIAL BLOOD PO2 79.4 mmHg (80-100); ARTERIAL BLOOD TOTAL CO2 31.5 mmol/L (23-27)
[2018-08-14 14:28] LABS: ARTERIAL BLOOD FIO2 60%
[2018-08-14] MEDS ORDERED: DEXTROSE 40% GEL 15 GM TUBE PO PRN ×2 (14:55)
[2018-08-14] MEDS ORDERED: DEXTROSE 50%-WATER 25 GM/50 ML DISP.SYRIN IV PRN ×2 (14:55)
[2018-08-14] MEDS ORDERED: GLUCAGON,HUMAN RECOMB 1 MG INJ IM PRN (14:55)
[2018-08-14] MEDS: INSULIN REG, HUMAN 100 UNIT/ML 3 ML VIAL (PYX) SUBCUT SCH ×2 (15:16→17:15)
[2018-08-14] MEDS ORDERED: TADALAFIL 20 MG NG SCH (18:00)
[2018-08-14] MEDS: ATORVASTATIN CALCIUM 40 MG TABLET NG SCH (21:36)
[2018-08-15] MEDS: INSULIN REG, HUMAN 100 UNIT/ML 3 ML VIAL (PYX) SUBCUT SCH ×5 (00:46→23:57)
--- NOTE | 2018-08-15 01:04 | CONSULTATION REPORT E ---
Consultation Report NAME: ARLEY COELLO : 1975 AGE: 43Y DATE: 08/14/2018 ROOM: 608 A TO: STEPH GRANADOS M.D. FROM: VÍCTOR WADE M.D. Requesting Physician HISTORY OF PRESENT ILLNESS: The patient is a 43-year-old male who came in with acute respiratory failure requiring invasive mechanical ventilation due to altered mental status due to BiPAP therapy, while on BiPAP therapy at home. The patient was intubated. The patient was admitted on 08/12/2018 and got endotracheally intubated and mechanical ventilated. Consulted because of acute respiratory failure requiring invasive mechanical ventilation. The patient had profuse endotracheal tube secretions this morning. Sputum culture was sent. No vomiting, no diarrhea. Blood pressure has been stable. The patient has been oxygenating very well. Vital signs have been stable for the last few hours. PAST MEDICAL AND PAST SURGICAL HISTORY: Cannot be obtained from the patient due to acute encephalopathy and subsequent endotracheal intubation. The patient has history of hypertension and pulmonary hypertension, history of respiratory failure, chronic respiratory failure with hypoxemia, severe pulmonary hypertension and sleep apnea, restrictive lung disease with his Trilogy at night and 2 liters via nasal cannula during the daytime. SOCIAL HISTORY: The patient lives with family. The patient has never smoked. Drinks alcohol occasionally. Denies any illicit drug use. ADVANCE DIRECTIVES: Full code. Surrogate healthcare decision maker is his . FAMILY HISTORY: CAD and hypertension. ALLERGIES: 1. CODEINE. 2. NITROGLYCERIN. REVIEW OF SYSTEMS: Unobtainable due to mechanical ventilation. PHYSICAL EXAMINATION: GENERAL: The patient appeared sedated. VITAL SIGNS: Afebrile with temperature 98.1 with a T-max of 99.1, heart rate of 70, blood pressure is 158/83, respiratory is 16, saturation is 93% on 50% FiO2. SIMV rate of 14, tidal volume of 550, pressure support of 20, and PEEP of 5. The patient's peak airway pressure is 17. *------* of 19 and mid ventilation of 0.7. Peak tidal volume is 553. EYES: No jaundice or pallor. EARS, NOSE, AND THROAT: No ear drainage. No nasal discharge. CHEST AND LUNGS: No wheezing, no rhonchi, no coarse crackles. CARDIOVASCULAR: S1, S2 distinct. Normal rate and regular rhythm. ABDOMEN: Flabby, positive bowel sounds, soft, nondistended, nontender. EXTREMITIES: No joint swelling, no cellulitis. LABORATORY DATA: CBC done today shows a white count of 3.7, hemoglobin of 11.5, hematocrit is 33.7, platelet count is 94. ABG done at 210 p.m. showed pH of 7.43, pCO2 is 46, pO2 is 79, and O2 saturation is 96% on 60% FiO2. Chemistry today showed sodium 140, potassium 4.4, chloride 105, CO2 is 25, BUN 13, creatinine is 0.82, calcium is 9.3, amylase is 2.3, SGOT is 74, SGPT is 61, alkaline phosphatase is 16, total protein 6.1. IMAGING STUDIES: Chest x-ray done today at 3 p.m. showed endotracheal tube is in place, no pneumothorax noted. Increased infiltrate in the right lung base, which is a little more prominent today than previous x-rays. Infiltrate on the left upper lobe. Chest CT scan done on 08/11, showed bibasilar infiltrates in posterior bases, stable bibasilar pneumonic process. ASSESSMENT: 1. Acute respiratory failure requiring invasive mechanical ventilation. 2. Pneumonia, bibasal. 3. Morbid obesity. 4. Obesity hypoventilation syndrome. 5. History of pulmonary hypertension. PLAN/RECOMMENDATION: 1. We will continue to optimize ventilator support. 2. We will continue current IV antibiotics. 3. We will consider NG/OG tube feeding tomorrow if the patient fails spontaneous voiding trial and spontaneous breathing trial. DICTATING PHYSICIAN: STEPH GRANADOS MD,[place],MPH [id number] PHY#: [id number] ID: [id number] JOB#: [id number] ACCT: [id number] cc:STEPH GRANADOS M.D. > ELFEGO
[2018-08-15] MEDS: DILTIAZEM HCL 60 MG TABLET NG SCH ×2 (01:12→05:36)
[2018-08-15] MEDS: MIDAZOLAM HCL 50 MG/100 ML RTUINJ IV PRN ×3 (01:19→18:48)
[2018-08-15] MEDS: PROPOFOL 1,000 MG/100 ML INFUS..BTL IV PRN ×8 (01:58→22:36)
[2018-08-15 04:48] LABS: ABSOLUTE LYMPHOCYTES (AUTO) 0.3 10^3/uL (0.5-4.7); ABSOLUTE MONOCYTES (AUTO) 0.2 10^3/uL (0.1-1.4); ABSOLUTE NEUT (AUTO) 3.5 10^3/uL (1.7-8.2); BASOPHILS % (AUTO) 0.4 % (0-2); EOSINOPHILS % (AUTO) 0.1 % (0-6); HEMOGLOBIN 11.6 g/dL (13.5-17.0); LYMPHOCYTES % (AUTO) 8.4 % (13-45); MEAN CORPUSCULAR HEMOGLOBIN 32.4 pg (27.0-33.4); MEAN CORPUSCULAR HGB CONC 34.1 g/dL (32.0-36.0); MEAN CORPUSCULAR VOLUME 95 fl (80-97); MONOCYTES % (AUTO) 4.3 % (3-13); PLATELET COUNT 115 10^3/uL (150-450); RED BLOOD COUNT 3.57 10^6/uL (4.35-5.55); RED CELL DISTRIBUTION WIDTH 13.4 % (11.5-14.0); SEGMENTED NEUTROPHILS % (AUTO) 86.8 % (42-78); TOTAL CELLS COUNTED % (AUTO) 100 %; WHITE BLOOD COUNT 4.1 10^3/uL (4.0-10.5)
[2018-08-15 05:07] LABS: ALANINE AMINOTRANSFERASE 46 U/L (21-72); ALBUMIN 3.5 g/dL (3.5-5.0); ALKALINE PHOSPHATASE 107 U/L (38-126); ANION GAP 10 (5-19); ASPARTATE AMINO TRANSFERASE 56 U/L (17-59); BILIRUBIN,DIRECT 0.6 mg/dL (0.0-0.4); BILIRUBIN,TOTAL 0.6 mg/dL (0.2-1.3); BLOOD UREA NITROGEN 18 mg/dL (7-20); CALCIUM 9.2 mg/dL (8.4-10.2); CARBON DIOXIDE 28 mmol/L (22-30); CHLORIDE 104 mmol/L (98-107); GLUCOSE 152 mg/dL (75-110); POTASSIUM 4.5 mmol/L (3.6-5.0); SODIUM 141.9 mmol/L (137-145); TOTAL PROTEIN 6.1 g/dL (6.3-8.2)
[2018-08-15] MEDS: CLONIDINE HCL 0.1 MG TABLET NG SCH ×3 (05:42→21:12)
[2018-08-15 06:53] LABS: ARTERIAL BLOOD BASE EXCESS 2.6 mmol/L; ARTERIAL BLOOD FIO2 50%; ARTERIAL BLOOD H2CO3 1.35 mmol/L (1.05-1.35); ARTERIAL BLOOD HCO3 27.8 mmol/L (20-24); ARTERIAL BLOOD O2 SATURATION 95.5 % (94-98); ARTERIAL BLOOD PCO2 44.9 mmHg (35-45); ARTERIAL BLOOD PH 7.41 (7.35-7.45); ARTERIAL BLOOD PO2 77.2 mmHg (80-100); ARTERIAL BLOOD TOTAL CO2 29.1 mmol/L (23-27)
[2018-08-15] MEDS: RINGERS SOLUTION,LACTATED 1,000 ML IV PRN (08:00)
--- NOTE | 2018-08-15 08:42 | RADIOLOGY REPORT (SQ) ---
EXAM DESCRIPTION: CHEST SINGLE VIEW COMPLETED DATE/TIME: 08/15/2018 6:16 am REASON FOR STUDY: resp failure COMPARISON: 08/14/2018 EXAM PARAMETERS: NUMBER OF VIEWS: One view TECHNIQUE: Single frontal radiograph of the chest. RADIATION DOSE: N/A LIMITATIONS: None. FINDINGS: TEMPORARY SUPPORT DEVICES:ETT in expected location. NG tube courses below the connie-diaphr agm in to the stomach. LUNGS AND PLEURA: Minimal left basilar opacity. No effusions. No masses. No pneumothorax. MEDIASTINUM AND HILAR STRUCTURES: No masses. Contour normal. HEART AND VASCULAR STRUCTURES: Heart enlarged. Normal vascularity. Aorta normal for age. BONES: No acute findings. OTHER: No other significant finding. IMPRESSION: Cardiac enlargement. Minimal basilar opacity on the left. SUPPORT DEVICE(S) IN EXPECTED LOCATIONS. TECHNICAL DOCUMENTATION: JOB ID: [id number] [employer]- All Rights Reserved Reading location - IP/workstation name: [email or web address]
[2018-08-15] MEDS: FUROSEMIDE 20 MG TABLET NG SCH (09:27)
[2018-08-15] MEDS: LORATADINE 10 MG TABLET NG SCH (09:27)
[2018-08-15] MEDS: ASPIRIN 81 MG TABLET, CHEWABLE NG SCH (09:27)
[2018-08-15] MEDS: FONDAPARINUX SODIUM INJ 2.5 MG/0.5 ML DISP.SYRIN SUBCUT SCH (09:27)
--- NOTE | 2018-08-15 09:50 | PDOC PROGRESS REPORT ---
Subjective Progress Note for:: 08/15/18 Subjective:: 43 year old male who presented to the emergency room via EMS with a history of acute episodes of agitation, headache and syncope. He was found by his at his home apparently having fallen asleep without using his BiPAP and she noted that he was cyanotic and hard to arouse. She put his BiPAP back on him and while she was trying to assist him he aroused suddenly and did not recognize her and became very agitated and combative and then as he improved he complained of a severe headache (the worst of his life) and then developed a sudden syncopal episode. This alarmed his and she called EMS. The patient had another similar episode in the emergency vehicle and again had a similar episode in the emergency room under the observation of the emergency room physician and staff. His oxygen saturations were noted to vary wildly in the emergency room and to guarantee his best oxygenation and reduce his agitation and anxiety he was intubated in placed on a ventilator. His CT scan shows no evidence of an acute intracranial process. Patient was subsequently admitted to the hospital for further evaluation and treatment in the ICU. 08/12/[id number]-hxwy-old male admitted to the ICU for acute episodes of agitation, headaches and syncope. Patient was cyanotic and hard to arouse at home. He was placed back on BiPAP and EMS was called on the way to the hospital he became very agitated and combative and complained of severe headaches .. CTA of the head was done, neck CTa was done CT head was done everything came back negative for bleed or stroke. Patient is presently on 40% oxygen on propofol 50 mcg/kg/min and Versed 7.5 mg/h. Presently on 40% oxygen. ABG this morning pH is 7.34/PCO2 50 / PO2 72.8 /bicarb is 26. Plan is to keep him intubated and we may try weaning process tomorrow. CT scans indicates bilateral opacifications in the lung howell. And also suggestive diffusely enlarged thyroid gland with a goiter-like appearance. To check his TSH levels tomorrow. 08/13/[id number]-osgi-old male admitted for altered mental status and agitation headaches and syncope he was intubated in the emergency room transferred to ICU no acute events in the last 24 hours. Patient is afebrile. Has a NG tube. Patient is on minimal sedation not in distress. Still on mechanical ventilation with PEEP of 540% oxygen pulse ox is 97%. Family members at bedside they are happy with the progress. Probably we may plan to weaning parameters from tomorrow. Chest x-ray for today and tomorrow are requested. 08/14/[id number]-ouvq-old male admitted for altered mental status and agitation altered mental status causes unknown. Work-up was negative so far. He was intubated presently still on mechanical ventilation. ABG this morning pH is 7.43/PCO2 45/PO2 72 bicarb is 29 oxygen saturation is 95% this is on 55% oxygen. X-ray done this morning indicates improvement in the left lower lobe infiltrate. Patient is still on sedation. To discuss the medication with the pharmacy about management of pulmonary hypertension. The medications presently is on for pulmonary hypertension unfortunately not be crushed. 08/15/2018-patient is still intubated on mechanical ventilation. On Versed and propofol. He is on 50% oxygen. ABG done this morning shows pH of 7.41/PCO2 45/PCO2 77/bicarb is 27. Consultation with pulmonology done. Plan to start on tube feedings today plan to wean him off from the sedation and start the weaning process may be this evening or tomorrow morning. Chest x-ray done this morning shows no acute pathology. Patient is becoming bradycardic heart rate is 48 plan is to stop Cardizem, to decrease the Coreg to 6.25 mg twice a day and cut down atenolol to 50 mg p.o. daily. Reason For Visit: ACUTE ON CHRONIC RESPIRATORY FAILURE WITH Physical Exam Vital Signs: Temp Pulse Resp BP Pulse Ox 97.2 F 68 14 129/70 H 99 08/15/18 08:13 08/15/18 08:00 08/15/18 08:13 08/15/18 08:13 08/15/18 08:13 Intake & Output 08/14/18 08/15/18 08/16/18 06:59 06:59 06:59 Intake Total 1151 4932 186 Output Total 0531 5684 20 Balance -6709 -300 166 Weight 158 kg 157.3 kg General appearance: PRESENT: morbidly obese, other - Still on mechanical ventilation and sedated. Head exam: PRESENT: atraumatic Ear exam: PRESENT: normal external ear exam Neck exam: ABSENT: carotid bruit, JVD, lymphadenopathy, thyromegaly Respiratory exam: PRESENT: clear to auscultation amy. ABSENT: rales, rhonchi, wheezes Cardiovascular exam: PRESENT: bradycardia GI/Abdominal exam: PRESENT: normal bowel sounds, soft. ABSENT: distended, guarding, mass, organolmegaly, rebound, tenderness Rectal exam: PRESENT: deferred Extremities exam: PRESENT: full ROM. ABSENT: calf tenderness, clubbing, pedal edema Neurological exam: PRESENT: other - Patient was intubated under sedation. Results Laboratory Results: 08/15/18 04:21 08/15/18 04:21 08/14/18 08/15/18 08/15/18 14:10 04:21 04:21 WBC 4.1 RBC 3.57 L Hgb 11.6 L Hct 34.0 L MCV 95 MCH 32.4 MCHC 34.1 RDW 13.4 Plt Count 115 L Seg Neutrophils % 86.8 H Lymphocytes % 8.4 L Monocytes % 4.3 Eosinophils % 0.1 Basophils % 0.4 Absolute Neutrophils 3.5 Absolute Lymphocytes 0.3 L Absolute Monocytes 0.2 Absolute Eosinophils 0.0 Absolute Basophils 0.0 Carbonic Acid 1.38 H HCO3/H2CO3 Ratio 21:1 ABG pH 7.43 ABG pCO2 46.0 H ABG pO2 79.4 L ABG HCO3 30.1 H ABG O2 Saturation 96.0 ABG Base Excess 5.0 FiO2 60% Sodium 141.9 Potassium 4.5 Chloride 104 Carbon Dioxide 28 Anion Gap 10 BUN 18 Creatinine 0.73 Est GFR ( Amer) > 60 Est GFR (Non-Af Amer) > 60 Glucose 152 H Calcium 9.2 Magnesium 2.5 H Total Bilirubin 0.6 AST 56 ALT 46 Alkaline Phosphatase 107 Total Protein 6.1 L Albumin 3.5 08/15/18 05:45 WBC RBC Hgb Hct MCV MCH MCHC RDW Plt Count Seg Neutrophils % Lymphocytes % Monocytes % Eosinophils % Basophils % Absolute Neutrophils Absolute Lymphocytes Absolute Monocytes Absolute Eosinophils Absolute Basophils Carbonic Acid 1.35 HCO3/H2CO3 Ratio 20:1 ABG pH 7.41 ABG pCO2 44.9 ABG pO2 77.2 L ABG HCO3 27.8 H ABG O2 Saturation 95.5 ABG Base Excess 2.6 FiO2 50% Sodium Potassium Chloride Carbon Dioxide Anion Gap BUN Creatinine Est GFR ( Amer) Est GFR (Non-Af Amer) Glucose Calcium Magnesium Total Bilirubin AST ALT Alkaline Phosphatase Total Protein Albumin 08/12/18 11:34 Cerebral Spinal Fluid - Csf Gram Stain - Final 08/12/18 11:34 Cerebral Spinal Fluid - Csf CSF Culture - Final NO GROWTH 3 DAYS 08/11/18 08/11/18 20:56 20:56 Creatine Kinase 64 CK-MB (CK-2) 0.49 Troponin I < 0.012 Impressions: Head CT 08/11/18 20:56 IMPRESSION: No acute intracranial findings. EVIDENCE OF ACUTE STROKE: NO. Chest CT 08/11/18 21:46 IMPRESSION: Limited exam as a result of body habitus and lack of contrast Areas of atelectasis in the lower lobes bilaterally and in the upper lobes bilaterally Enlarged liver and spleen Probable hilar adenopathy Endotracheal and nasogastric tubes in place Head CTA 08/11/18 21:46 IMPRESSION: Significantly suboptimal exam due to venous interference and contrast bolus. However as visualized, the CTA portion of the exam is unremarkable. Diffusely enlarged and nodular appearance to the thyroid gland. This likely reflects goitrous change. Correlate with thyroid function. Airspace opacities in the visualized lung apices bilaterally. TECHNICAL DOCUMENTATION: Quality ID # 436: Final reports with documentation of one or more dose reduction techniques (e.g., Automated exposure control, adjustment of the mA and/or kV according to patient size, use of iterative reconstruction technique) copyright 2010 [employer]- All Rights Reserved Neck CTA 08/11/18 21:46 IMPRESSION: Significantly suboptimal exam due to venous interference and contrast bolus. However as visualized, the CTA portion of the exam is unremarkable. Diffusely enlarged and nodular appearance to the thyroid gland. This likely reflects goitrous change. Correlate with thyroid function. Airspace opacities in the visualized lung apices bilaterally. TECHNICAL DOCUMENTATION: Quality ID # 436: Final reports with documentation of one or more dose reduction techniques (e.g., Automated exposure control, adjustment of the mA and/or kV according to patient size, use of iterative reconstruction technique) copyright 2010 [employer]- All Rights Reserved Chest X-Ray 08/15/18 09:15 IMPRESSION: Cardiac enlargement. Minimal basilar opacity on the left. SUPPORT DEVICE(S) IN EXPECTED LOCATIONS. Assessment and Plan - Diagnosis (1) Acute and chronic respiratory failure with hypoxia Is this a current diagnosis for this admission?: Yes Plan: Patient will continue on mechanical ventilation. Settings will be adjusted according to need based on ABGs. Patient will be maintained on mechanical ventilation until such time as he can be treated with continuous BiPAP which is his norm. 08/12/2018-patient is intubated settings are 40% oxygen with PEEP of 5 SIMV rate of 12 and tidal volume of 500. Presently on Versed and propofol sedation. 08/13/2018-patient is admitted with acute on chronic respiratory failure with hypoxia presently on 40% oxygen with PEEP of 5, respiratory rate of 12 tidal volume of 500 pulse ox is 97% today. Chest bilateral entry was decreased, no wheezing no crepitations. Patient is on minimal sedation. Planning to start weaning protocol from tomorrow. 08/14/2018-patient was admitted for acute on chronic respiratory failure with hypoxia. Presently on 55% oxygen with PEEP of 5 respiratory rate of 12 tidal volume of 500. Pulse ox is 94 to 95%. Bilateral entry was decreased no whe ezing no crepitations. Chest x-ray shows improvement in left lower lobe infiltrate. He is to do daily ABGs and chest x-rays. To restart on patient's pulmonary hypertension medication. 08/15/2018-patient still on mechanical ventilation under sedation with Versed and propofol. Presently on 50% oxygen. With the PEEP of 5 and tidal volume of 500. ABG this morning and 50% oxygen pH is 7.41/PCO2 42/PO2 77/bicarb is 27. Plan is to try to wean him off from today. Consultation with pulmonary was done. (2) Syncope and collapse Is this a current diagnosis for this admission?: Yes (3) Encephalopathy acute Is this a current diagnosis for this admission?: Yes Plan: A urine drug screen will be obtained. Interventional radiology will be consulted for a lumbar puncture for chemistry and culture evaluation. Daily CBCs, comprehensive metabolic profiles, and magnesium levels will be obtained. A thyroid profile will be obtained x1. Further evaluation for causes of acute encephalopathy will be entertained as appropriate. 08/12/2018-patient is admitted with altered mental status/acute encephalopathy. Urine drug screen is negative. Plan to do the daily CBCs magnesium and CMP. Plan to do the LP. Requested for carboxyhemoglobin levels to rule out any carbon monoxide poisoning. Plan to arrange for the LP today. 08/13/2018-patient is admitted with altered mental status/acute encephalopathy causes unknown at this point. Urine drug screen is negative. Carboxyhemoglobin came back 1.4 within normal range. LP was done because of the altered mental status so far reports are negative for any infection. 08/14/2018-patient was admitted with altered mental status/acute encephalopathy causes unknown. Work-up was negative. Blood cultures are negative urine cultures are negative. LP was negative. CT head was negative. CT of the neck was negative. Chest x-ray suggestive of consolidation. Which was improving. Presently on cefepime and levo floxacillin. 08/15/2018-patient was admitted with altered mental status/acute encephalopathy. Work-up was negative including LP was negative. Chest x-ray suggestive of pneumonia and is getting antibiotic therapy. Blood cultures are negative sputum cultures are negative. Pulmonary is on board. (4) Pneumonia Is this a current diagnosis for this admission?: Yes Plan: 08/12/2018-CT scan suggestive of bilateral opacifications in the lung howell. Most likely community-acquired pneumonia. Most likely gram-positive organisms. Presently on IV Rocephin and IV levo floxacillin is added to the medication. Blood cultures are negative so far. 08/13/2018-suggestive of bilateral opacifications most likely secondary to community-acquired pneumonia presently on IV levo floxacillin. Blood cultures are negative so far. 08/14/2018-chest x-ray suggestive of bilateral opacifications, chest x-ray this morning indicates improving left lower lobe infiltrate. Patient has most likely community-acquired pneumonia. Presently on cefepime and IV levo floxacillin. Blood cultures and sputum cultures are negative so far. 08/15/2018-chest x-ray suggestive improving left lower lobe infiltrate. Patient is presently on cefepime and IV levo floxacillin. Blood cultures and sputum cultures are negative so far. (5) Morbid obesity with BMI of 40.0-44.9, adult Is this a current diagnosis for this admission?: No (6) Pulmonary HTN Is this a current diagnosis for this admission?: No Plan: 08/15/2018-patient has history of pulmonary hypertension he is taking tidanafil a t home. We do not have it in the formulary so family brought the medication from home to use it. - Time Time Spent with patient: 35 or more minutes Medications reviewed and adjusted accordingly: Yes Anticipated discharge: Home
[2018-08-15] MEDS ORDERED: DILTIAZEM HCL 60 MG TABLET NG SCH (10:00)
[2018-08-15] MEDS: METHYLPREDNISOLONE INJ 40 MG/1 ML SDV IV SCH ×2 (10:10→21:12)
[2018-08-15] MEDS: AMINO AC/PROTEIN HYDR/WHEY PRO 11 GM/45 ML PKT NG SCH ×3 (10:10→18:44)
[2018-08-15] MEDS: CEFEPIME HCL 2 GM in DEXTROSE 5%-WATER 50 ML IV SCH ×2 (10:23→21:11)
[2018-08-15] MEDS: TADALAFIL 20 MG PO SCH (11:10)
[2018-08-15] MEDS: FLUTICASONE NASAL SPRAY 50 MCG/SPRY 120 SPRAY/16 GM NASL SCH (11:18)
[2018-08-15] MEDS: AMLODIPINE BESYLATE 10 MG TABLET PO SCH (11:20)
[2018-08-15] MEDS: LEVOFLOXACIN 750 MG/D5W RTU 750 MG/150 ML RTUPB IV SCH (12:39)
[2018-08-15] MEDS: ATENOLOL 50 MG TABLET PO SCH (14:00)
[2018-08-15 14:15] LABS: CREATINE KINASE MB < 0.22 ng/mL (<4.55); TROPONIN I < 0.012 ng/mL
[2018-08-15] MEDS: CARVEDILOL 12.5 MG TABLET NG SCH ×2 (15:00→21:13)
[2018-08-15] MEDS ORDERED: FENTANYL 50 MCG/HR PATCH.TD72 TD ONE ×2 (18:04→22:00)
[2018-08-15] MEDS: FENTANYL CITRATE INJ/PF 100 MCG/2 ML AMPUL IV PRN (18:46)
[2018-08-15 20:15] LABS: CREATINE KINASE MB < 0.22 ng/mL (<4.55); TROPONIN I < 0.012 ng/mL
[2018-08-15] MEDS: ATORVASTATIN CALCIUM 40 MG TABLET NG SCH (21:12)
[2018-08-15] MEDS: HYDRALAZINE HCL INJ/PF 20 MG/1 ML SDV IV PRN (22:16)
[2018-08-16] MEDS: PROPOFOL 1,000 MG/100 ML INFUS..BTL IV PRN ×4 (00:40→08:40)
[2018-08-16] MEDS: FENTANYL CITRATE INJ/PF 100 MCG/2 ML AMPUL IV PRN ×2 (00:40→06:00)
[2018-08-16 01:35] LABS: CREATINE KINASE MB < 0.22 ng/mL (<4.55); TROPONIN I < 0.012 ng/mL
[2018-08-16] MEDS: RINGERS SOLUTION,LACTATED 1,000 ML IV PRN ×2 (03:40→23:30)
[2018-08-16 04:03] LABS: ARTERIAL BLOOD BASE EXCESS 2.7 mmol/L; ARTERIAL BLOOD FIO2 40%; ARTERIAL BLOOD H2CO3 1.29 mmol/L (1.05-1.35); ARTERIAL BLOOD HCO3 27.5 mmol/L (20-24); ARTERIAL BLOOD O2 SATURATION 96.8 % (94-98); ARTERIAL BLOOD PCO2 42.8 mmHg (35-45); ARTERIAL BLOOD PH 7.43 (7.35-7.45); ARTERIAL BLOOD PO2 87.8 mmHg (80-100); ARTERIAL BLOOD TOTAL CO2 28.8 mmol/L (23-27)
[2018-08-16 04:04] LABS: ABSOLUTE LYMPHOCYTES (AUTO) 0.4 10^3/uL (0.5-4.7); ABSOLUTE MONOCYTES (AUTO) 0.2 10^3/uL (0.1-1.4); ABSOLUTE NEUT (AUTO) 3.1 10^3/uL (1.7-8.2); BASOPHILS % (AUTO) 0.5 % (0-2); EOSINOPHILS % (AUTO) 0.6 % (0-6); HEMATOCRIT 33.4 % (37.9-51.0); HEMOGLOBIN 11.3 g/dL (13.5-17.0); LYMPHOCYTES % (AUTO) 10.3 % (13-45); MEAN CORPUSCULAR HEMOGLOBIN 32.2 pg (27.0-33.4); MEAN CORPUSCULAR VOLUME 95 fl (80-97); MONOCYTES % (AUTO) 5.2 % (3-13); PLATELET COUNT 129 10^3/uL (150-450); RED BLOOD COUNT 3.52 10^6/uL (4.35-5.55); RED CELL DISTRIBUTION WIDTH 13.3 % (11.5-14.0); SEGMENTED NEUTROPHILS % (AUTO) 83.4 % (42-78); TOTAL CELLS COUNTED % (AUTO) 100 %; WHITE BLOOD COUNT 3.7 10^3/uL (4.0-10.5)
[2018-08-16] MEDS ORDERED: METOCLOPRAMIDE HCL ORAL SOLN 10 MG/10 ML UDCUP NG ONE (04:15)
[2018-08-16 04:34] LABS: ALANINE AMINOTRANSFERASE 45 U/L (21-72); ALBUMIN 3.2 g/dL (3.5-5.0); ALKALINE PHOSPHATASE 98 U/L (38-126); ANION GAP 9 (5-19); ASPARTATE AMINO TRANSFERASE 78 U/L (17-59); BILIRUBIN,DIRECT 0.6 mg/dL (0.0-0.4); BILIRUBIN,TOTAL 0.6 mg/dL (0.2-1.3); BLOOD UREA NITROGEN 21 mg/dL (7-20); CALCIUM 8.7 mg/dL (8.4-10.2); CARBON DIOXIDE 27 mmol/L (22-30); CHLORIDE 106 mmol/L (98-107); GLUCOSE 131 mg/dL (75-110); POTASSIUM 4.6 mmol/L (3.6-5.0); SODIUM 141.8 mmol/L (137-145); TOTAL PROTEIN 5.7 g/dL (6.3-8.2)
[2018-08-16] MEDS ORDERED: METOCLOPRAMIDE HCL ORAL SOLN 10 MG/10 ML UDCUP ONE (04:48)
[2018-08-16] MEDS: CLONIDINE HCL 0.1 MG TABLET NG SCH ×3 (05:07→21:15)
[2018-08-16] MEDS: INSULIN REG, HUMAN 100 UNIT/ML 3 ML VIAL (PYX) SUBCUT SCH ×3 (05:09→18:55)
[2018-08-16] MEDS: FONDAPARINUX SODIUM INJ 2.5 MG/0.5 ML DISP.SYRIN SUBCUT SCH (07:59)
--- NOTE | 2018-08-16 08:24 | RADIOLOGY REPORT (SQ) ---
EXAM DESCRIPTION: CHEST SINGLE VIEW COMPLETED DATE/TIME: 08/16/2018 6:43 am REASON FOR STUDY: resp failure COMPARISON: 08/15/2018 EXAM PARAMETERS: NUMBER OF VIEWS: One view TECHNIQUE: Single frontal radiograph of the chest. RADIATION DOSE: N/A LIMITATIONS: None. FINDINGS: TEMPORARY SUPPORT DEVICES:ETT in expected location. NG tube courses below the connie-diaphr agm in to the stomach. LUNGS AND PLEURA: Persistent left basilar opacities. Right lung remains clear. No effusions. No mas ses. No pneumothorax. MEDIASTINUM AND HILAR STRUCTURES: No masses. Contour normal. HEART AND VASCULAR STRUCTURES: Heart is enlarged. normal vascularity. Aorta normal for age. BONES: No acute findings. OTHER: No other significant finding. IMPRESSION: No interval change. No improvement. SUPPORT DEVICE(S) IN EXPECTED LOCATIONS. TECHNICAL DOCUMENTATION: JOB ID: [id number] [employer]- All Rights Reserved Reading location - IP/workstation name: [email or web address]
--- NOTE | 2018-08-16 08:24 | PROGRESS NOTE E ---
Progress Note NAME: ARLEY COELLO : 1975 AGE: 43Y DATE: 08/15/2018 ROOM: 608 SUBJECTIVE: Patient is a 43-year-old male who came in with acute respiratory failure requiring invasive mechanical ventilation, poorly controlled hypertension, pulmonary edema, pneumonia, morbid obesity and obesity hypoventilation syndrome and pulmonary hypertension. Patient still has a copious amount of endotracheal tube secretions today. There was no fever over the last 24 hours. Patient's oxygen saturation is 97% to 100% on 50% FiO2. Able to titrate the FiO2 to 45%, keeping her saturation around 93% to 95%. No vomiting and no diarrhea. Patient was unable to get his Coreg this morning because he started going down into the 40's. Blood pressure has been running 168 to 170 mm systolic this afternoon. Patient is currently on Norvasc 10 mg tablets daily and clonidine 0.1 mg q.8 hours and carvedilol 6.25 mg q.12 hours, which was withheld; Lasix 20 mg per NG tube, hydralazine 20 mg IV q.4 hours. Patient is currently on Levaquin 750 mg IV daily and propofol drip and Versed drip. OBJECTIVE: GENERAL: Patient appears sedated, afebrile, not in apparent respiratory distress. VITAL SIGNS: Temperature 97.7, with a T-max of 97.7. Heart rate is 54, blood pressure is 169/87, respirations 14, saturating 100% on 50% FiO2. SIMV PRVC rate of 14, tidal volume is 550, mean ventilation is 7.7, pressure support of 20, PEEP of 5, with peak airway pressure of 18 to 24 and total pressure of 18, tidal volume of 600. EYES: No jaundice or pallor. EARS, NOSE AND THROAT: No ear drainage. No nasal discharge. Orotracheal tube is in place. Using orotracheal tube of 7.5. CHEST AND LUNGS: No wheezing, no rhonchi, no coarse crackles. ABDOMEN: Hypoactive bowel sounds. EXTREMITIES: No joint swelling, no cellulitis. LABORATORY DATA: CBC done today showed a white count of 4.1, hemoglobin is 11.6, hematocrit is 34, platelets are 115,000. ABGs done this morning showed pH of 7.41, pCO2 is 44, pO2 is 77, bicarb is 27 on 50% FiO2. Chemistry done today showed sodium is 141, potassium 4.5, chloride 104, CO2 is 28, BUN is 18, creatinine is 0.73 and glucose is 152. Calcium is 9.2, magnesium is 2.5. The SGOT is 56, SGPT 46, alkaline phos is 107. ASSESSMENT: 1. ACUTE RESPIRATORY FAILURE REQUIRING INVASIVE MECHANICAL VENTILATION. 2. PULMONARY EDEMA, CURRENTLY APPEARS STABLE. 3. POORLY CONTROLLED HYPERTENSION. 4. OBESITY HYPOVENTILATION SYNDROME. 5. MORBID OBESITY. 6. PULMONARY HYPERTENSION. PLAN/RECOMMENDATIONS: 1. Recommend optimizing blood pressure control. Patient's carvedilol was held this morning because of severe bradycardia, with heart rate running in the 40's. Clonidine if increased, can also cause bradycardia. Added JONO inhibitor, Vasotec 5 mg tablet tonight. May increase to 5 mg b.i.d. tomorrow, depending upon patient's blood pressure response. Patient's blood pressure is expected to go higher once the IV propofol and IV Versed are weaned off. It is very important that the patient's blood pressure is well-controlled. 2. Will start the patient on fentanyl patch 50 mcg. The patient has a standing order of p.r.n. fentanyl, which is occasionally given, but patient seems to be uncomfortable and to be in pain, but not well-defined because patient is on 2 IV sedatives - propofol and Versed, infusion. Will plan to wean off the IV sedation tomorrow morning and when patient is fully awake, comfortable and non-agitated, we will plan to do a spontaneous breathing trial tomorrow and every day thereafter until patient passes the spontaneous breathing trial. Will consider extubating the patient once the patient passes the spontaneous breathing trial evaluation. DICTATING PHYSICIAN: STEPH GRANADOS MD,[place],MPH [id number] PHY#: [id number] ID: [id number] JOB#: [id number] ACCT: [id number] cc: > MTDD
[2018-08-16] MEDS: MIDAZOLAM HCL 50 MG/100 ML RTUINJ IV PRN (08:42)
[2018-08-16] MEDS ORDERED: (PENDING PHARMACY ID) (Cholecalciferol (Vitamin D3) [Vitamin D3] 50,000 UNIT) PO SCH (10:00)
[2018-08-16] MEDS ORDERED: ERGOCALCIFEROL (VITAMIN D2) 50000 UNIT (1.25 MG) CAPSULE PO SCH (10:00)
[2018-08-16] MEDS ORDERED: ENALAPRIL MALEATE 5 MG TABLET PO SCH (10:00)
[2018-08-16] MEDS: METOCLOPRAMIDE HCL ORAL SOLN 10 MG/10 ML UDCUP NG SCH ×4 (10:27→21:02)
[2018-08-16] MEDS: ASPIRIN 81 MG TABLET, CHEWABLE NG SCH (10:28)
[2018-08-16] MEDS: LORATADINE 10 MG TABLET NG SCH (10:28)
[2018-08-16] MEDS: CARVEDILOL 12.5 MG TABLET NG SCH ×2 (10:29→21:15)
[2018-08-16] MEDS: FUROSEMIDE 20 MG TABLET NG SCH (10:29)
[2018-08-16] MEDS: FLUTICASONE NASAL SPRAY 50 MCG/SPRY 120 SPRAY/16 GM NASL SCH (10:29)
[2018-08-16] MEDS: CEFEPIME HCL 2 GM in DEXTROSE 5%-WATER 50 ML IV SCH ×2 (10:30→21:14)
[2018-08-16] MEDS: AMLODIPINE BESYLATE 10 MG TABLET PO SCH (10:31)
[2018-08-16] MEDS: AMINO AC/PROTEIN HYDR/WHEY PRO 11 GM/45 ML PKT NG SCH ×2 (10:32→14:10)
[2018-08-16] MEDS: PANTOPRAZOLE SODIUM 40 MG VIAL IV SCH ×2 (10:32→21:15)
[2018-08-16] MEDS: TADALAFIL 20 MG PO SCH (10:32)
[2018-08-16] MEDS: METHYLPREDNISOLONE INJ 40 MG/1 ML SDV IV SCH ×2 (10:33→21:15)
[2018-08-16] MEDS: ATENOLOL 50 MG TABLET PO SCH (10:33)
--- NOTE | 2018-08-16 11:27 | PDOC PROGRESS REPORT ---
Subjective Progress Note for:: 08/16/18 Subjective:: 43 year old male who presented to the emergency room via EMS with a history of acute episodes of agitation, headache and syncope. He was found by his at his home apparently having fallen asleep without using his BiPAP and she noted that he was cyanotic and hard to arouse. She put his BiPAP back on him and while she was trying to assist him he aroused suddenly and did not recognize her and became very agitated and combative and then as he improved he complained of a severe headache (the worst of his life) and then developed a sudden syncopal episode. This alarmed his and she called EMS. The patient had another similar episode in the emergency vehicle and again had a similar episode in the emergency room under the observation of the emergency room physician and staff. His oxygen saturations were noted to vary wildly in the emergency room and to guarantee his best oxygenation and reduce his agitation and anxiety he was intubated in placed on a ventilator. His CT scan shows no evidence of an acute intracranial process. Patient was subsequently admitted to the hospital for further evaluation and treatment in the ICU. 08/12/[id number]-zblj-old male admitted to the ICU for acute episodes of agitation, headaches and syncope. Patient was cyanotic and hard to arouse at home. He was placed back on BiPAP and EMS was called on the way to the hospital he became very agitated and combative and complained of severe headaches .. CTA of the head was done, neck CTa was done CT head was done everything came back negative for bleed or stroke. Patient is presently on 40% oxygen on propofol 50 mcg/kg/min and Versed 7.5 mg/h. Presently on 40% oxygen. ABG this morning pH is 7.34/PCO2 50 / PO2 72.8 /bicarb is 26. Plan is to keep him intubated and we may try weaning process tomorrow. CT scans indicates bilateral opacifications in the lung howell. And also suggestive diffusely enlarged thyroid gland with a goiter-like appearance. To check his TSH levels tomorrow. 08/13/[id number]-xvyz-old male admitted for altered mental status and agitation headaches and syncope he was intubated in the emergency room transferred to ICU no acute events in the last 24 hours. Patient is afebrile. Has a NG tube. Patient is on minimal sedation not in distress. Still on mechanical ventilation with PEEP of 540% oxygen pulse ox is 97%. Family members at bedside they are happy with the progress. Probably we may plan to weaning parameters from tomorrow. Chest x-ray for today and tomorrow are requested. 08/14/[id number]-biwy-old male admitted for altered mental status and agitation altered mental status causes unknown. Work-up was negative so far. He was intubated presently still on mechanical ventilation. ABG this morning pH is 7.43/PCO2 45/PO2 72 bicarb is 29 oxygen saturation is 95% this is on 55% oxygen. X-ray done this morning indicates improvement in the left lower lobe infiltrate. Patient is still on sedation. To discuss the medication with the pharmacy about management of pulmonary hypertension. The medications presently is on for pulmonary hypertension unfortunately not be crushed. 08/15/2018-patient is still intubated on mechanical ventilation. On Versed and propofol. He is on 50% oxygen. ABG done this morning shows pH of 7.41/PCO2 45/PCO2 77/bicarb is 27. Consultation with pulmonology done. Plan to start on tube feedings today plan to wean him off from the sedation and start the weaning process may be this evening or tomorrow morning. Chest x-ray done this morning shows no acute pathology. Patient is becoming bradycardic heart rate is 48 plan is to stop Cardizem, to decrease the Coreg to 6.25 mg twice a day and cut down atenolol to 50 mg p.o. daily. 08/16/2018-patient is this morning. Presently on Versed at 4 mg/h and also propofol 40 mcg/kg/min. Dr. Briceño is on board. Plan is to wean him off from the ventilator either today or tomorrow. ABG this morning pH of 7.43 PCO2 42 PO2 87.8 bicarb is 27.5 and 40% oxygen. X-ray shows persistent left base opacities right lung is clear. Febrile. Reason For Visit: ACUTE ON CHRONIC RESPIRATORY FAILURE WITH Physical Exam Vital Signs: Temp Pulse Resp BP Pulse Ox 99.0 F 60 13 141/83 H 95 08/16/18 10:39 08/16/18 10:00 08/16/18 10:39 08/16/18 10:39 08/16/18 10:39 Intake & Output 08/15/18 08/16/18 08/17/18 06:59 06:59 06:59 Intake Total 2914 2282 66 Output Total 9793 1690 200 Balance 529 592 -134 Weight 157.3 kg 157.6 kg General appearance: PRESENT: mild distress, morbidly obese, other - Still intubated under mechanical ventilation and sedation on propofol and Versed patient is agitated and combative now. Head exam: PRESENT: atraumatic Eye exam: PRESENT: PERRLA Teeth exam: PRESENT: poor dentation Neck exam: ABSENT: carotid bruit, JVD, lymphadenopathy, thyromegaly Respiratory exam: PRESENT: decreased breath sounds Cardiovascular exam: PRESENT: bradycardia GI/Abdominal exam: PRESENT: normal bowel sounds, soft. ABSENT: distended, guarding, mass, organolmegaly, rebound, tenderness Rectal exam: PRESENT: deferred Gentrourinary exam: PRESENT: indwelling catheter Neurological exam: PRESENT: other - Unable to do neuro examination because p atient is intubated under sedation. He is kicking and moving all his 4 extremities. Results Laboratory Results: 08/16/18 03:32 08/16/18 03:32 08/16/18 08/16/18 08/16/18 03:32 03:32 03:50 WBC 3.7 L RBC 3.52 L Hgb 11.3 L Hct 33.4 L MCV 95 MCH 32.2 MCHC 34.0 RDW 13.3 Plt Count 129 L Seg Neutrophils % 83.4 H Lymphocytes % 10.3 L Monocytes % 5.2 Eosinophils % 0.6 Basophils % 0.5 Absolute Neutrophils 3.1 Absolute Lymphocytes 0.4 L Absolute Monocytes 0.2 Absolute Eosinophils 0.0 Absolute Basophils 0.0 Carbonic Acid 1.29 HCO3/H2CO3 Ratio 21:1 ABG pH 7.43 ABG pCO2 42.8 ABG pO2 87.8 ABG HCO3 27.5 H ABG O2 Saturation 96.8 ABG Base Excess 2.7 FiO2 40% Sodium 141.8 Potassium 4.6 Chloride 106 Carbon Dioxide 27 Anion Gap 9 BUN 21 H Creatinine 0.69 Est GFR ( Amer) > 60 Est GFR (Non-Af Amer) > 60 Glucose 131 H Calcium 8.7 Magnesium 2.5 H Total Bilirubin 0.6 AST 78 H ALT 45 Alkaline Phosphatase 98 Total Protein 5.7 L Albumin 3.2 L 08/14/18 12:36 Tracheal Aspirate Gram Stain - Final 08/12/18 11:34 Cerebral Spinal Fluid - Csf Gram Stain - Final 08/12/18 11:34 Cerebral Spinal Fluid - Csf CSF Culture - Final NO GROWTH 3 DAYS 08/11/18 08/11/18 08/15/18 20:56 20:56 13:02 Creatine Kinase 64 29 L CK-MB (CK-2) 0.49 Troponin I < 0.012 08/15/18 08/15/18 08/15/18 13:02 19:23 19:23 Creatine Kinase 30 L CK-MB (CK-2) < 0.22 < 0.22 Troponin I < 0.012 < 0.012 08/16/18 08/16/18 00:55 00:55 Creatine Kinase 34 L CK-MB (CK-2) < 0.22 Troponin I < 0.012 Impressions: Head CT 08/11/18 20:56 IMPRESSION: No acute intracranial findings. EVIDENCE OF ACUTE STROKE: NO. Chest CT 08/11/18 21:46 IMPRESSION: Limited exam as a result of body habitus and lack of contrast Areas of atelectasis in the lower lobes bilaterally and in the upper lobes bilaterally Enlarged liver and spleen Probable hilar adenopathy Endotracheal and nasogastric tubes in place Head CTA 08/11/18 21:46 IMPRESSION: Significantly suboptimal exam due to venous interference and contrast bolus. However as visualized, the CTA portion of the exam is unremarkable. Diffusely enlarged and nodular appearance to the thyroid gland. This likely reflects goitrous change. Correlate with thyroid function. Airspace opacities in the visualized lung apices bilaterally. TECHNICAL DOCUMENTATION: Quality ID # 436: Final reports with documentation of one or more dose reduction techniques (e.g., Automated exposure control, adjustment of the mA and/or kV according to patient size, use of iterative reconstruction technique) copyright 2011 [employer]- All Rights Reserved Neck CTA 08/11/18 21:46 IMPRESSION: Significantly suboptimal exam due to venous interference and contrast bolus. However as visualized, the CTA portion of the exam is unremarkable. Diffusely enlarged and nodular appearance to the thyroid gland. This likely reflects goitrous change. Correlate with thyroid function. Airspace opacities in the visualized lung apices bilaterally. TECHNICAL DOCUMENTATION: Quality ID # 436: Final reports with documentation of one or more dose reduction techniques (e.g., Automated exposure control, adjustment of the mA and/or kV according to patient size, use of iterative reconstruction technique) copyright 2011 [employer]- All Rights Reserved Chest X-Ray 08/16/18 09:45 IMPRESSION: No interval change. No improvement. SUPPORT DEVICE(S) IN EXPECTED LOCATIONS. Assessment and Plan - Diagnosis (1) Acute and chronic respiratory failure with hypoxia Is this a current diagnosis for this admission?: Yes Plan: Patient will continue on mechanical ventilation. Settings will be adjusted according to need based on ABGs. Patient will be maintained on mechanical ventilation until such time as he can be treated with continuous BiPAP which is his norm. 08/12/2018-patient is intubated settings are 40% oxygen with PEEP of 5 SIMV rate of 12 and tidal volume of 500. Presently on Versed and propofol sedation. 08/13/2018-patient is admitted with acute on chronic respiratory failure with hypoxia presently on 40% oxygen with PEEP of 5, respiratory rate of 12 tidal volume of 500 pulse ox is 97% today. Chest bilateral entry was decreased, no wheezing no crepitations. Patient is on minimal sedation. Planning to start weaning protocol from tomorrow. 08/14/2018-patient was admitted for acute on chronic respiratory failure with hypoxia. Presently on 55% oxygen with PEEP of 5 respiratory rate of 12 tidal volume of 500. Pulse ox is 94 to 95%. Bilateral entry was decreased no wheezing no crepitations. Chest x-ray shows improvement in left lower lobe infiltrate. He is to do daily ABGs and chest x-rays. To restart on patient's pulmonary hypertension medication. 08/15/2018-patient still on mechanical ventilation under sedation with Versed and propofol. Presently on 50% oxygen. With the PEEP of 5 and tidal volume of 500. ABG this morning and 50% oxygen pH is 7.41/PCO2 42/PO2 77/bicarb is 27. Plan is to try to wean him off from today. Consultation with pulmonary was done. 08/16/2018-patient is still on mechanical ventilation 40% oxygen. Pulse ox is 100%. Presently on Versed or propofol. ABG is looking good this morning. On 40% oxygen pH is 7.43/PCO2 42.8/PO2 87.8 bicarb is 27.5 and oxygen saturation is 96.8. Dr. Cline is on board the plan is to extubate the patient in the today o r tomorrow. (2) Syncope and collapse Is this a current diagnosis for this admission?: Yes (3) Encephalopathy acute Is this a current diagnosis for this admission?: Yes Plan: A urine drug screen will be obtained. Interventional radiology will be consulted for a lumbar puncture for chemistry and culture evaluation. Daily CBCs, comprehensive metabolic profiles, and magnesium levels will be obtained. A thyroid profile will be obtained x1. Further evaluation for causes of acute encephalopathy will be entertained as appropriate. 08/12/2018-patient is admitted with altered mental status/acute encephalopathy. Urine drug screen is negative. Plan to do the daily CBCs magnesium and CMP. Plan to do the LP. Requested for carboxyhemoglobin levels to rule out any carbon monoxide poisoning. Plan to arrange for the LP today. 08/13/2018-patient is admitted with altered mental status/acute encephalopathy causes unknown at this point. Urine drug screen is negative. Carboxyhemoglobin came back 1.4 within normal range. LP was done because of the altered mental status so far reports are negative for any infection. 08/14/2018-patient was admitted with altered mental status/acute encephalopathy causes unknown. Work-up was negative. Blood cultures are negative urine cultures are negative. LP was negative. CT head was negative. CT of the neck was negative. Chest x-ray suggestive of consolidation. Which was improving. Presently on cefepime and levo floxacillin. 08/15/2018-patient was admitted with altered mental status/acute encephalopathy. Work-up was negative including LP was negative. Chest x-ray suggestive of pneumonia and is getting antibiotic therapy. Blood cultures are negative sputum cultures are negative. Pulmonary is on board. 08/16/2018-patient was admitted with altered mental status/acute and coagulopathy. CT head was negative CT of the neck and head are negative repeat CT head was negative LP was negative for infection. Cause for altered mental status is unknown at this moment. (4) Pneumonia Is this a current diagnosis for this admission?: Yes Plan: 08/12/2018-CT scan suggestive of bilateral opacifications in the lung howell. Most likely community-acquired pneumonia. Most likely gram-positive organisms. Presently on IV Rocephin and IV levo floxacillin is added to the medication. Blood cultures are negative so far. 08/13/2018-suggestive of bilateral opacifications most likely secondary to community-acquired pneumonia presently on IV levo floxacillin. Blood cultures are negative so far. 08/14/2018-chest x-ray suggestive of bilateral opacifications, chest x-ray this morning indicates improving left lower lobe infiltrate. Patient has most likely community-acquired pneumonia. Presently on cefepime and IV levo floxacillin. Blood cultures and sputum cultures are negative so far. 08/15/2018-chest x-ray suggestive improving left lower lobe infiltrate. Patient is presently on cefepime and IV levo floxacillin. Blood cultures and sputum cultures are negative so far. 08/16/2018-chest x-ray suggestive of left lower lobe infiltrates. Presently on cefepime and IV levo floxacillin. So far the blood cultures and sputum cultures are negative. (5) Morbid obesity with BMI of 40.0-44.9, adult Is this a current diagnosis for this admission?: No (6) Pulmonary HTN Is this a current diagnosis for this admission?: No Plan: 08/15/2018-patient has history of pulmonary hypertension he is taking tidanafil at home. We do not have it in the formulary so family brought the medication from home to use it. - Time Time Spent with patient: 25-34 minutes Anticipated discharge: Home
[2018-08-16] MEDS: LEVOFLOXACIN 750 MG/D5W RTU 750 MG/150 ML RTUPB IV SCH (12:10)
--- NOTE | 2018-08-16 12:51 | RADIOLOGY REPORT (SQ) ---
EXAM DESCRIPTION: CHEST SINGLE VIEW COMPLETED DATE/TIME: 08/16/2018 12:41 pm REASON FOR STUDY: ET TUBE PLACEMENT COMPARISON: 08/16/2018 NUMBER OF VIEWS: One view. TECHNIQUE: Single frontal radiographic image of the chest acquired. LIMITATIONS: None. FINDINGS: ENDOTRACHEAL TUBE: Appropriate location. OTHER SUPPORT DEVICES: NG tube. CHANGES IN RADIOGRAPHIC FINDINGS: None. Stable appearance. HARDWARE: None in the chest. OTHER: No other significant finding. IMPRESSION: STABLE APPEARANCE OF THE CHEST. TECHNICAL DOCUMENTATION: JOB ID: [id number] [place]-72 2010 [employer]- All Rights Reserved Reading location - IP/workstation name: [facility]
[2018-08-16] MEDS: ENALAPRIL MALEATE 5 MG TABLET PO SCH ×2 (14:10→21:14)
[2018-08-16 15:51] LABS: ARTERIAL BLOOD H2CO3 1.07 mmol/L (1.05-1.35); ARTERIAL BLOOD O2 SATURATION 98.2 % (94-98); ARTERIAL BLOOD PCO2 35.4 mmHg (35-45); ARTERIAL BLOOD PO2 105.5 mmHg (80-100); ARTERIAL BLOOD TOTAL CO2 28.1 mmol/L (23-27)
[2018-08-16 15:52] LABS: ARTERIAL BLOOD FIO2 40%
--- NOTE | 2018-08-16 19:04 | PROGRESS NOTE E ---
Progress Note NAME: ARLEY COELLO : 1975 AGE: 43Y DATE: 08/15/2018 ROOM: 608 SUBJECTIVE: Patient is a 43-year-old male who came in acute respiratory failure requiring invasive mechanical ventilation due to pulmonary edema, morbid obesity, obesity hypoventilation syndrome, poorly controlled hypertension. Patient was titrated off and remained off sedation late last night and was uncomfortable and agitated and restless early this morning. Patient's spontaneous breathing trial was canceled. Patient was resedated and gradually weaned off again until 2:00 this afternoon. Patient's spontaneous breathing trial was started around 2:30 and the patient appeared to be doing well in the last 25 minutes. Patient seems to be agitated, but denies any pain, neck pain, chest pain, abdominal pain or back pain. The patient feels uncomfortable. Has scanty endotracheal tube secretions and tolerated the NG tube feeding overnight. The NG tube feeding was held for the spontaneous breathing trial and the patient was placed on pressure support of 20/5 and an SIMV rate of that too. OBJECTIVE: GENERAL: Patient appeared awake, afebrile. Appeared to be coherent and not in apparent respiratory distress. VITAL SIGNS: Blood pressure of 160/77, heart rate of 77, temperature is 99.1, respirations 15, saturation is 98%. EYES: No jaundice or pallor. EARS, NOSE AND THROAT: No ear drainage. No nasal discharge. CHEST AND LUNGS: No wheezing, no rhonchi, no coarse crackles. CARDIOVASCULAR: S1, S2 distinct. Normal rate, regular rhythm. ABDOMEN: Flabby. Positive bowel sounds. Soft, nondistended, nontender. EXTREMITIES: No joint swelling or cellulitis. LABORATORY DATA: CBC done today showed white count of 3.7, hemoglobin is 11.3, hematocrit is 33.4, platelet count is 129,000. ABG done today showed pH of 7.43, pCO2 of 42.8, pO2 is 87, with saturation of 96.8. Chemistry today showed sodium is 141, potassium 4.6, chloride 106, carbon dioxide 27, BUN is 21, creatinine is 0.69, glucose 131 and lactase 8.7. Calcium is 8.5. Total protein is 5.7 and albumin is 3.2. The troponin is normal. Chest x-ray done today showed endotracheal tube in the right position. The patient has mild cardiomegaly. No pleural effusion and no new pulmonary infiltrate. ASSESSMENT: 1. ACUTE RESPIRATORY FAILURE REQUIRING INVASIVE MECHANICAL VENTILATION, CURRENTLY DOING SPONTANEOUS BREATHING TRIAL. 2. PULMONARY EDEMA. 3. PULMONARY HYPERTENSION. 4. OBESITY HYPOVENTILATION SYNDROME. 5. MORBID OBESITY. PLAN/RECOMMENDATIONS: 1. Will do spontaneous breathing trial today. If patient passes the spontaneous breathing trial after an hour, will do an ABG and consider extubating the patient. However, if patient fails, then will resume sedation and reevaluate the patient again tomorrow with a spontaneous breathing trial. 2. Will decrease the fentanyl patch. 3. Continue IV antibiotics. 4. Will increase the Vasotec to 5 mg twice a day starting today. 5. Recommend optimal blood pressure control and seizure control. DICTATING PHYSICIAN: STEPH GRANADOS MD,[place],MPH [id number] PHY#: [id number] ID: [id number] JOB#: [id number] ACCT: [id number] cc: > MTDD
[2018-08-16] MEDS: ATORVASTATIN CALCIUM 40 MG TABLET NG SCH (21:15)
[2018-08-16] MEDS ORDERED: MAG HYDROX/AL HYDROX/SIMETH SUSP 30 ML UDCUP ONE (23:24)
[2018-08-17] MEDS ORDERED: MAG HYDROX/AL HYDROX/SIMETH SUSP 30 ML UDCUP PO PRN (04:16)
[2018-08-17] MEDS: CLONIDINE HCL 0.1 MG TABLET NG SCH (05:12)
[2018-08-17] MEDS: METOCLOPRAMIDE HCL ORAL SOLN 10 MG/10 ML UDCUP NG SCH ×4 (07:55→21:02)
[2018-08-17] MEDS: FONDAPARINUX SODIUM INJ 2.5 MG/0.5 ML DISP.SYRIN SUBCUT SCH (08:00)
--- NOTE | 2018-08-17 10:13 | PDOC PROGRESS REPORT ---
Subjective Progress Note for:: 08/17/18 Subjective:: 43 year old male who presented to the emergency room via EMS with a history of acute episodes of agitation, headache and syncope. He was found by his at his home apparently having fallen asleep without using his BiPAP and she noted that he was cyanotic and hard to arouse. She put his BiPAP back on him and while she was trying to assist him he aroused suddenly and did not recognize her and became very agitated and combative and then as he improved he complained of a severe headache (the worst of his life) and then developed a sudden syncopal episode. This alarmed his and she called EMS. The patient had another similar episode in the emergency vehicle and again had a similar episode in the emergency room under the observation of the emergency room physician and staff. His oxygen saturations were noted to vary wildly in the emergency room and to guarantee his best oxygenation and reduce his agitation and anxiety he was intubated in placed on a ventilator. His CT scan shows no evidence of an acute intracranial process. Patient was subsequently admitted to the hospital for further evaluation and treatment in the ICU. 08/[id number]-old male admitted to the ICU for acute episodes of agitation, headaches and syncope. Patient was cyanotic and hard to arouse at home. He was placed back on BiPAP and EMS was called on the way to the hospital he became very agitated and combative and complained of severe headaches .. CTA of the head was done, neck CTa was done CT head was done everything came back negative for bleed or stroke. Patient is presently on 40% oxygen on propofol 50 mcg/kg/min and Versed 7.5 mg/h. Presently on 40% oxygen. ABG this morning pH is 7.34/PCO2 50 / PO2 72.8 /bicarb is 26. Plan is to keep him intubated and we may try weaning process tomorrow. CT scans indicates bilateral opacifications in the lung howell. And also suggestive diffusely enlarged thyroid gland with a goiter-like appearance. To check his TSH levels tomorrow. 08/[id number]-old male admitted for altered mental status and agitation headaches and syncope he was intubated in the emergency room transferred to ICU no acute events in the last 24 hours. Patient is afebrile. Has a NG tube. Patient is on minimal sedation not in distress. Still on mechanical ventilation with PEEP of 540% oxygen pulse ox is 97%. Family members at bedside they are happy with the progress. Probably we may plan to weaning parameters from tomorrow. Chest x-ray for today and tomorrow are requested. 08/[id number]-old male admitted for altered mental status and agitation altered mental status causes unknown. Work-up was negative so far. He was intubated presently still on mechanical ventilation. ABG this morning pH is 7.43/PCO2 45/PO2 72 bicarb is 29 oxygen saturation is 95% this is on 55% oxygen. X-ray done this morning indicates improvement in the left lower lobe infiltrate. Patient is still on sedation. To discuss the medication with the pharmacy about management of pulmonary hypertension. The medications presently is on for pulmonary hypertension unfortunately not be crushed. 08/15/2018-patient is still intubated on mechanical ventilation. On Versed and propofol. He is on 50% oxygen. ABG done this morning shows pH of 7.41/PCO2 45/PCO2 77/bicarb is 27. Consultation with pulmonology done. Plan to start on tube feedings today plan to wean him off from the sedation and start the weaning process may be this evening or tomorrow morning. Chest x-ray done this morning shows no acute pathology. Patient is becoming bradycardic heart rate is 48 plan is to stop Cardizem, to decrease the Coreg to 6.25 mg twice a day and cut down atenolol to 50 mg p.o. daily. 08/16/2018-patient is this morning. Presently on Versed at 4 mg/h and also propofol 40 mcg/kg/min. Dr. Briceño is on board. Plan is to wean him off from the ventilator either today or tomorrow. ABG this morning pH of 7.43 PCO2 42 PO2 87.8 bicarb is 27.5 and 40% oxygen. X-ray shows persistent left base opacities right lung is clear. Febrile. 08/17/2018-patient is comfortable leaving the bed communicating well. He was successfully extubated yesterday. And respiratory distress. Pulse ox is 96% on 2 L. no Acute events in the last 24 hours. Patient is afebrile. Reason For Visit: ACUTE ON CHRONIC RESPIRATORY FAILURE WITH Physical Exam Vital Signs: Temp Pulse Resp BP Pulse Ox 98.9 F 53 L 17 163/83 H 98 08/17/18 08:00 08/17/18 08:00 08/17/18 08:00 08/17/18 08:00 08/17/18 08:00 Intake & Output 08/16/18 08/17/18 08/18/18 06:59 06:59 06:59 Intake Total 2282 1513 Output Total 1690 4445 Balance 592 -312 Weight 157.6 kg 157.5 kg General appearance: PRESENT: no acute distress, morbidly obese Head exam: PRESENT: atraumatic Eye exam: PRESENT: PERRLA Mouth exam: PRESENT: moist, tongue midline Neck exam: ABSENT: carotid bruit, JVD, lymphadenopathy, thyromegaly Respiratory exam: PRESENT: decreased breath sounds Cardiovascular exam: PRESENT: RRR. ABSENT: diastolic murmur, rubs, systolic murmur GI/Abdominal exam: PRESENT: normal bowel sounds, soft. ABSENT: distended, guarding, mass, organolmegaly, rebound, tenderness Rectal exam: PRESENT: deferred Extremities exam: PRESENT: full ROM. ABSENT: calf tenderness, clubbing, pedal edema Neurological exam: PRESENT: alert, awake, oriented to person, oriented to place, oriented to time, oriented to situation, CN II-XII grossly intact. ABSENT: motor sensory deficit Psychiatric exam: PRESENT: appropriate affect, normal mood. ABSENT: homicidal ideation, suicidal ideation Results Laboratory Results: 08/16/18 03:32 08/16/18 03:32 08/16/18 15:37 Carbonic Acid 1.07 HCO3/H2CO3 Ratio 25:1 ABG pH 7.50 H ABG pCO2 35.4 ABG pO2 105.5 H ABG HCO3 27.0 H ABG O2 Saturation 98.2 H ABG Base Excess 4.0 FiO2 40% 08/11/18 00:45 Blood Blood Culture - Final NO GROWTH IN 5 DAYS 08/11/18 00:30 Blood Blood Culture - Final NO GROWTH IN 5 DAYS 08/14/18 12:36 Tracheal Aspirate Gram Stain - Final 08/14/18 12:36 Tracheal Aspirate Sputum Culture - Final C.albicans/C.dubliniensis Normal Priti 08/14/18 08:00 Veloz Catheter Urine Culture - Final NO GROWTH 2 DAYS 08/11/18 08/11/18 08/15/18 20:56 20:56 13:02 Creatine Kinase 64 29 L CK-MB (CK-2) 0.49 Troponin I < 0.012 08/15/18 08/15/18 08/15/18 13:02 19:23 19:23 Creatine Kinase 30 L CK-MB (CK-2) < 0.22 < 0.22 Troponin I < 0.012 < 0.012 08/16/18 08/16/18 00:55 00:55 Creatine Kinase 34 L CK-MB (CK-2) < 0.22 Troponin I < 0.012 Impressions: Head CT 08/11/18 20:56 IMPRESSION: No acute intracranial findings. EVIDENCE OF ACUTE STROKE: NO. Chest CT 08/11/18 21:46 IMPRESSION: Limited exam as a result of body habitus and lack of contrast Areas of atelectasis in the lower lobes bilaterally and in the upper lobes bilaterally Enlarged liver and spleen Probable hilar adenopathy Endotracheal and nasogastric tubes in place Head CTA 08/11/18 21:46 IMPRESSION: Significantly suboptimal exam due to venous interference and contrast bolus. However as visualized, the CTA portion of the exam is unremarkable. Diffusely enlarged and nodular appearance to the thyroid gland. This likely reflects goitrous change. Correlate with thyroid function. Airspace opacities in the visualized lung apices bilaterally. TECHNICAL DOCUMENTATION: Quality ID # 436: Final reports with documentation of one or more dose reduction techniques (e.g., Automated exposure control, adjustment of the mA and/or kV according to patient size, use of iterative reconstruction technique) copyright 2010 [employer]- All Rights Reserved Neck CTA 08/11/18 21:46 IMPRESSION: Significantly suboptimal exam due to venous interference and contrast bolus. However as visualized, the CTA portion of the exam is unremarkable. Diffusely enlarged and nodular appearance to the thyroid gland. This likely reflects goitrous change. Correlate with thyroid function. Airspace opacities in the visualized lung apices bilaterally. TECHNICAL DOCUMENTATION: Quality ID # 436: Final reports with documentation of one or more dose reduction techniques (e.g., Automated exposure control, adjustment of the mA and/or kV according to patient size, use of iterative reconstruction technique) copyright 2010 [employer]- All Rights Reserved Chest X-Ray 08/16/18 09:45 IMPRESSION: No interval change. No improvement. SUPPORT DEVICE(S) IN EXPECTED LOCATIONS. Assessment and Plan - Diagnosis (1) Acute and chronic respiratory failure with hypoxia Is this a current diagnosis for this admission?: Yes Plan: Patient will continue on mechanical ventilation. Settings will be adjusted according to need based on ABGs. Patient will be maintained on mechanical ventilation until such time as he can be treated with continuous BiPAP which is his norm. 08/12/2018-patient is intubated settings are 40% oxygen with PEEP of 5 SIMV rate o f 12 and tidal volume of 500. Presently on Versed and propofol sedation. 08/13/2018-patient is admitted with acute on chronic respiratory failure with hypoxia presently on 40% oxygen with PEEP of 5, respiratory rate of 12 tidal volume of 500 pulse ox is 97% today. Chest bilateral entry was decreased, no wheezing no crepitations. Patient is on minimal sedation. Planning to start weaning protocol from tomorrow. 08/14/2018-patient was admitted for acute on chronic respiratory failure with hypoxia. Presently on 55% oxygen with PEEP of 5 respiratory rate of 12 tidal volume of 500. Pulse ox is 94 to 95%. Bilateral entry was decreased no wheezing no crepitations. Chest x-ray shows improvement in left lower lobe infiltrate. He is to do daily ABGs and chest x-rays. To restart on patient's pulmonary hypertension medication. 08/15/2018-patient still on mechanical ventilation under sedation with Versed and propofol. Presently on 50% oxygen. With the PEEP of 5 and tidal volume of 500. ABG this morning and 50% oxygen pH is 7.41/PCO2 42/PO2 77/bicarb is 27. Plan is to try to wean him off from today. Consultation with pulmonary was done. 08/16/2018-patient is still on mechanical ventilation 40% oxygen. Pulse ox is 100%. Presently on Versed or propofol. ABG is looking good this morning. On 40% oxygen pH is 7.43/PCO2 42.8/PO2 87.8 bicarb is 27.5 and oxygen saturation is 96.8. Dr. Cline is on board the plan is to extubate the patient in the today or tomorrow. 08/17/2018-patient was successfully extubated yesterday. Presently on 2 L oxygen 96%. On examination chest bilateral entry was good no wheezing no crepitations. Plan is to move him to telemetry. (2) Syncope and collapse Is this a current diagnosis for this admission?: Yes Plan: Patient will be monitored closely throughout his hospital stay. When he is able to be off ventilator he will be further evaluated for possible causes of his syncope if no clear etiology has yet been determined. 08/12/2018-patient is admitted for syncope and collapse. Work-up so far negative. Unable to do the MRI because patient is intubated. 08/13/2018-patient was admitted for syncope and collapse work-up was negative. Once he is extubated premed to for MRI of the brain without contrast. 08/14/2018-patient was admitted for syncope and collapse. So far the work-up was negative. LP was negative. Blood cultures and sputum cultures are negative. 08/17/2018-patient was admitted for syncope and collapse. Admitted with altered mental status also. Because of altered mental status is unknown. Blood cultures are negative urine cultures are negative LP is negative. CT head was negative CT of the neck was negative. (3) Encephalopathy acute Is this a current diagnosis for this admission?: Yes Plan: A urine drug screen will be obtained. Interventional radiology will be consulted for a lumbar puncture for chemistry and culture evaluation. Daily CBCs, comprehensive metabolic profiles, and magnesium levels will be obtained. A thyroid profile will be obtained x1. Further evaluation for causes of acute encephalopathy will be entertained as appropriate. 08/12/2018-patient is admitted with altered mental status/acute encephalopathy. Urine drug screen is negative. Plan to do the daily CBCs magnesium and CMP. Plan to do the LP. Requested for carboxyhemoglobin levels to rule out any carbon monoxide poisoning. Plan to arrange for the LP today. 08/13/2018-patient is admitted with altered mental status/acute encephalopathy causes unknown at this point. Urine drug screen is negative. Carboxyhemoglobin came back 1.4 within normal range. LP was done because of the altered mental status so far reports are negative for any infection. 08/14/2018-patient was admitted with altered mental status/acute encephalopathy causes unknown. Work-up was negative. Blood cultures are negative urine cultures are negative. LP was negative. CT head was negative. CT of the neck was negative. Chest x-ray suggestive of consolidation. Which was improving. Presently on cefepime and levo floxacillin. 08/15/2018-patient was admitted with altered mental status/acute encephalopathy. Work-up was negative including LP was negative. Chest x-ray suggestive of pneumonia and is getting antibiotic therapy. Blood cultures are negative sputum cultures are negative. Pulmonary is on board. 08/16/2018-patient was admitted with altered mental status/acute encoagulopathy. CT head was negative CT of the neck and head are negative repeat CT head was negative LP was negative for infection. Cause for altered mental status is unknown at this moment. 08/17/2018-patient was admitted with altered mental status/acute encephalopathy. Because of altered mental status is unknown. Work-up was negative. (4) Pneumonia Is this a current diagnosis for this admission?: Yes Plan: 08/12/2018-CT scan suggestive of bilateral opacifications in the lung howell. Most likely community-acquired pneumonia. Most likely gram-positive organisms. Presently on IV Rocephin and IV levo floxacillin is added to the medication. Blood cultures are negative so far. 08/13/2018-suggestive of bilateral opacifications most likely secondary to community-acquired pneumonia presently on IV levo floxacillin. Blood cultures are negative so far. 08/14/2018-chest x-ray suggestive of bilateral opacifications, chest x-ray this morning indicates improving left lower lobe infiltrate. Patient has most likely community-acquired pneumonia. Presently on cefepime and IV levo floxacillin. Blood cultures and sputum cultures are negative so far. 08/15/2018-chest x-ray suggestive improving left lower lobe infiltrate. Patient is presently on cefepime and IV levo floxacillin. Blood cultures and sputum cultures are negative so far. 08/16/2018-chest x-ray suggestive of left lower lobe infiltrates. Presently on cefepime and IV levofloxacillin. So far the blood cultures and sputum cultures are negative. 08/17/2018-chest x-ray done suggestive of left lower lobe infiltrates. Presently on cefepime and IV levofloxacin. Blood cultures sputum cultures are negative. Plan is to discontinue IV antibiotic therapy. (5) Morbid obesity with BMI of 40.0-44.9, adult Is this a current diagnosis for this admission?: No Plan: 08/12/2018-patient has morbid obesity BMI is more BMI is more than 43. Once he is extubated plan is to educate him on diet exercise lifestyle modifications. 08/17/2018-patient has morbid obesity BMI of more than 43. Diet exercise weight loss lifestyle modifications discussed with the patient. Dietary consult was requested. (6) Pulmonary HTN Is this a current diagnosis for this admission?: No Plan: 08/15/2018-patient has history of pulmonary hypertension he is taking tidanafil at home. We do not have it in the formulary so family brought the medication from home to use it. 08/17/2018-patient has history of pulmonary hypertension is taking pattern of alert home. Which was resumed during the hospital stay. Medication is nonformulary and patient is receiving home medication. - Time Time Spent with patient: 35 or more minutes Medications reviewed and adjusted accordingly: Yes Anticipated discharge: Home
[2018-08-17] MEDS: METHYLPREDNISOLONE INJ 40 MG/1 ML SDV IV SCH (10:33)
[2018-08-17] MEDS: PANTOPRAZOLE SODIUM 40 MG VIAL IV SCH (10:33)
[2018-08-17] MEDS: ENALAPRIL MALEATE 5 MG TABLET PO SCH ×2 (10:33→21:07)
[2018-08-17] MEDS: LORATADINE 10 MG TABLET NG SCH (10:33)
[2018-08-17] MEDS: FUROSEMIDE 20 MG TABLET NG SCH (10:34)
[2018-08-17] MEDS: AMLODIPINE BESYLATE 10 MG TABLET PO SCH (10:34)
[2018-08-17] MEDS: CEFEPIME HCL 2 GM in DEXTROSE 5%-WATER 50 ML IV SCH (10:35)
[2018-08-17] MEDS: TADALAFIL 20 MG PO SCH (10:36)
[2018-08-17] MEDS: FLUTICASONE NASAL SPRAY 50 MCG/SPRY 120 SPRAY/16 GM NASL SCH (10:37)
[2018-08-17] MEDS: AMINO AC/PROTEIN HYDR/WHEY PRO 11 GM/45 ML PKT NG SCH ×4 (10:37→18:07)
[2018-08-17] MEDS: ATENOLOL 50 MG TABLET PO SCH (10:42)
[2018-08-17] MEDS: ASPIRIN 81 MG TABLET, CHEWABLE PO SCH (10:45)
[2018-08-17] MEDS ORDERED: CARVEDILOL 12.5 MG TABLET PO SCH (11:00)
[2018-08-17] MEDS ORDERED: CARVEDILOL 6.25 MG TABLET PO SCH (11:00)
[2018-08-17] MEDS ORDERED: PROPOFOL 1,000 MG/100 ML INFUS..BTL IV ONE (11:20)
[2018-08-17] MEDS: INSULIN REG, HUMAN 100 UNIT/ML 3 ML VIAL (PYX) SUBCUT SCH ×2 (15:13→18:05)
[2018-08-17] MEDS: CLONIDINE HCL 0.1 MG TABLET PO SCH ×2 (15:17→21:07)
[2018-08-17 16:37] LABS: ALPHA-1-GLOBULIN 1 5.9 % (1.1-6.6); ALPHA-2-GLOBULIN 5.7 % (3.0-12.6); CSF ALBUMIN 61.7 % (56.8-76.4); PRE ALBUMIN 2.4 % (2.2-7.1); TOTAL PROTEIN CSF PE 47.1 mg/dL (0.0-44.0)
[2018-08-17] MEDS: ATORVASTATIN CALCIUM 40 MG TABLET PO SCH (21:07)
[2018-08-17] MEDS: RINGERS SOLUTION,LACTATED 1,000 ML IV PRN (21:11)
[2018-08-18] MEDS: INSULIN REG, HUMAN 100 UNIT/ML 3 ML VIAL (PYX) SUBCUT SCH ×5 (00:28→23:26)
[2018-08-18 04:51] LABS: ABSOLUTE EOSINOPHILS # (AUTO) 0.1 10^3/uL (0.0-0.6); ABSOLUTE MONOCYTES (AUTO) 0.5 10^3/uL (0.1-1.4); ABSOLUTE NEUT (AUTO) 3.8 10^3/uL (1.7-8.2); BASOPHILS % (AUTO) 0.8 % (0-2); EOSINOPHILS % (AUTO) 2.7 % (0-6); HEMATOCRIT 35.2 % (37.9-51.0); HEMOGLOBIN 11.9 g/dL (13.5-17.0); LYMPHOCYTES % (AUTO) 17.6 % (13-45); MEAN CORPUSCULAR HEMOGLOBIN 31.8 pg (27.0-33.4); MEAN CORPUSCULAR HGB CONC 33.9 g/dL (32.0-36.0); MEAN CORPUSCULAR VOLUME 94 fl (80-97); MONOCYTES % (AUTO) 9.4 % (3-13); PLATELET COUNT 101 10^3/uL (150-450); RED BLOOD COUNT 3.75 10^6/uL (4.35-5.55); RED CELL DISTRIBUTION WIDTH 13.1 % (11.5-14.0); SEGMENTED NEUTROPHILS % (AUTO) 69.5 % (42-78); TOTAL CELLS COUNTED % (AUTO) 100 %; WHITE BLOOD COUNT 5.4 10^3/uL (4.0-10.5)
[2018-08-18 05:08] LABS: ALANINE AMINOTRANSFERASE 60 U/L (21-72); ALBUMIN 3.3 g/dL (3.5-5.0); ALKALINE PHOSPHATASE 95 U/L (38-126); ANION GAP 12 (5-19); ASPARTATE AMINO TRANSFERASE 109 U/L (17-59); BILIRUBIN,DIRECT 0.5 mg/dL (0.0-0.4); BILIRUBIN,TOTAL 0.8 mg/dL (0.2-1.3); BLOOD UREA NITROGEN 22 mg/dL (7-20); CALCIUM 8.7 mg/dL (8.4-10.2); CARBON DIOXIDE 24 mmol/L (22-30); CHLORIDE 107 mmol/L (98-107); GLUCOSE 89 mg/dL (75-110); POTASSIUM 3.5 mmol/L (3.6-5.0); SODIUM 142.6 mmol/L (137-145); TOTAL PROTEIN 5.7 g/dL (6.3-8.2)
[2018-08-18] MEDS: PANTOPRAZOLE SODIUM 40 MG TABLET.DR PO SCH (05:32)
[2018-08-18] MEDS: CLONIDINE HCL 0.1 MG TABLET PO SCH ×3 (05:32→22:10)
[2018-08-18] MEDS: HYDRALAZINE HCL INJ/PF 20 MG/1 ML SDV IV PRN (07:46)
[2018-08-18] MEDS: AMINO AC/PROTEIN HYDR/WHEY PRO 11 GM/45 ML PKT NG SCH ×3 (09:22→17:11)
[2018-08-18] MEDS: METOCLOPRAMIDE HCL ORAL SOLN 10 MG/10 ML UDCUP NG SCH ×4 (09:23→21:55)
[2018-08-18] MEDS: TADALAFIL 20 MG PO SCH (09:31)
[2018-08-18] MEDS: FUROSEMIDE 20 MG TABLET NG SCH (09:32)
[2018-08-18] MEDS: AMLODIPINE BESYLATE 10 MG TABLET PO SCH (09:32)
[2018-08-18] MEDS: ENALAPRIL MALEATE 5 MG TABLET PO SCH ×2 (09:32→22:09)
[2018-08-18] MEDS: LORATADINE 10 MG TABLET NG SCH (09:32)
[2018-08-18] MEDS: ASPIRIN 81 MG TABLET, CHEWABLE PO SCH (09:32)
[2018-08-18] MEDS: FLUTICASONE NASAL SPRAY 50 MCG/SPRY 120 SPRAY/16 GM NASL SCH (09:33)
[2018-08-18 09:43] LABS: CSF PE GAMMA GLOBULIN 6.2 % (3.0-13.0); PROT ELEC MSPIKE Not Observed % (Not Observ)
[2018-08-18] MEDS: FONDAPARINUX SODIUM INJ 2.5 MG/0.5 ML DISP.SYRIN SUBCUT SCH (10:37)
[2018-08-18] MEDS ORDERED: RINGERS SOLUTION,LACTATED 1,000 ML IV PRN (12:17)
--- NOTE | 2018-08-18 14:26 | PDOC PROGRESS REPORT ---
Subjective Progress Note for:: 08/18/18 Subjective:: This is 43 years old male patient was past medical history of hypertension, obesity, pulmonary hypertension and obstructive sleep apnea admitted 6 days ago to ICU with altered mental status and severe headache. Patient had had 2 episodes of syncopal episode,. And while she is being transported by EMS and the second happened at the ER. CT scan of the head is negative for subarachnoid hemorrhage and LP was done and meningitis ruled out. Patient had been intubated for acute on chronic respiratory failure with hypoxia and transferred to ICU. During his stay patient had been treated also for pneumonia. Patient is extubated the day before yesterday and he tolerated the procedure. Letter to patient downgraded and transferred to the medical floor. He completed 5 days course of antibiotics for the pneumonia. Reason For Visit: ACUTE ON CHRONIC RESPIRATORY FAILURE WITH Physical Exam Vital Signs: Temp Pulse Resp BP Pulse Ox 98.8 F 72 20 155/87 H 99 08/18/18 12:23 08/18/18 14:00 08/18/18 12:23 08/18/18 12:23 08/18/18 12:23 Intake & Output 08/17/18 08/18/18 08/19/18 06:59 06:59 06:59 Intake Total 1513 1000 20 Output Total 1825 800 Balance -312 200 20 Weight 157.5 kg 117.2 kg General appearance: PRESENT: no acute distress, obese Eye exam: PRESENT: conjunctiva pink Neck exam: ABSENT: carotid bruit, JVD, lymphadenopathy, thyromegaly Respiratory exam: PRESENT: clear to auscultation amy. ABSENT: rales, rhonchi, wheezes Cardiovascular exam: PRESENT: RRR. ABSENT: diastolic murmur, rubs, systolic murmur Neurological exam: PRESENT: alert, awake, oriented to time, oriented to situation Results Laboratory Results: 08/18/18 04:02 08/18/18 04:02 08/12/18 08/18/18 08/18/18 11:34 04:02 04:02 WBC 5.4 RBC 3.75 L Hgb 11.9 L Hct 35.2 L MCV 94 MCH 31.8 MCHC 33.9 RDW 13.1 Plt Count 101 L Seg Neutrophils % 69.5 Lymphocytes % 17.6 Monocytes % 9.4 Eosinophils % 2.7 Basophils % 0.8 Absolute Neutrophils 3.8 Absolute Lymphocytes 1.0 Absolute Monocytes 0.5 Absolute Eosinophils 0.1 Absolute Basophils 0.0 Sodium 142.6 Potassium 3.5 L Chloride 107 Carbon Dioxide 24 Anion Gap 12 BUN 22 H Creatinine 0.69 Est GFR ( Amer) > 60 Est GFR (Non-Af Amer) > 60 Glucose 89 Calcium 8.7 Magnesium 2.6 H Total Bilirubin 0.8 AST 109 H ALT 60 Alkaline Phosphatase 95 Total Protein 5.7 L Albumin 3.3 L CSF Total Protein PEP 47.1 H CSF Prealbumin 2.4 CSF Albumin 61.7 CSF Umckx-8-Izibions 5.9 CSF Cjhos-3-[id number] 5.7 CSF Beta Globulin 18.0 H CSF Gamma Globulin 6.2 CSF PEP M-Nikita Not Observed 08/11/18 08/11/18 08/15/18 20:56 20:56 13:02 Creatine Kinase 64 29 L CK-MB (CK-2) 0.49 Troponin I < 0.012 08/15/18 08/15/18 08/15/18 13:02 19:23 19:23 Creatine Kinase 30 L CK-MB (CK-2) < 0.22 < 0.22 Troponin I < 0.012 < 0.012 08/16/18 08/16/18 00:55 00:55 Creatine Kinase 34 L CK-MB (CK-2) < 0.22 Troponin I < 0.012 Impressions: Head CT 08/11/18 20:56 IMPRESSION: No acute intracranial findings. EVIDENCE OF ACUTE STROKE: NO. Chest CT 08/11/18 21:46 IMPRESSION: Limited exam as a result of body habitus and lack of contrast Areas of atelectasis in the lower lobes bilaterally and in the upper lobes bilaterally Enlarged liver and spleen Probable hilar adenopathy Endotracheal and nasogastric tubes in place Head CTA 08/11/18 21:46 IMPRESSION: Significantly suboptimal exam due to venous interference and contrast bolus. However as visualized, the CTA portion of the exam is unremarkable. Diffusely enlarged and nodular appearance to the thyroid gland. This likely reflects goitrous change. Correlate with thyroid function. Airspace opacities in the visualized lung apices bilaterally. TECHNICAL DOCUMENTATION: Quality ID # [id number]: Final reports with documentation of one or more dose reduction techniques (e.g., Automated exposure control, adjustment of the mA and/or kV according to patient size, use of iterative reconstruction technique) copyright 2011 [employer]- All Rights Reserved Neck CTA 08/11/18 21:46 IMPRESSION: Significantly suboptimal exam due to venous interference and contrast bolus. However as visualized, the CTA portion of the exam is unremarkable. Diffusely enlarged and nodular appearance to the thyroid gland. This likely reflects goitrous change. Correlate with thyroid function. Airspace opacities in the visualized lung apices bilaterally. TECHNICAL DOCUMENTATION: Quality ID # [id number]: Final reports with documentation of one or more dose reduction techniques (e.g., Automated exposure control, adjustment of the mA and/or kV according to patient size, use of iterative reconstruction technique) copyright 2010 [email or web address]- All Rights Reserved Chest X-Ray 08/16/18 09:45 IMPRESSION: No interval change. No improvement. SUPPORT DEVICE(S) IN EXPECTED LOCATIONS. Assessment and Plan - Diagnosis (1) Acute and chronic respiratory failure with hypoxia Is this a current diagnosis for this admission?: Yes Plan: Status post extubation. Currently patient is getting oxygen via nasal cannula and he sought saturation is ranging between 90 4 at night. Patient advised to get his CPAP during sleep. (2) Acute encephalopathy Is this a current diagnosis for this admission?: Yes Plan: Most probably due to metabolic causes. Currently patient is at his baseline. (3) Pneumonia Is this a current diagnosis for this admission?: Yes Plan: Treated. (4) Pulmonary hypertension Is this a current diagnosis for this admission?: Yes Plan: Continue current regimen. (5) Morbid obesity with BMI of 40.0-44.9, adult Is this a current diagnosis for this admission?: Yes Plan: Patient advised to do lifestyle modification. (6) Obstructive sleep apnea Is this a current diagnosis for this admission?: Yes Plan: Continue CPAP
[2018-08-18] MEDS: ATORVASTATIN CALCIUM 40 MG TABLET PO SCH (22:09)
[2018-08-19] MEDS: INSULIN REG, HUMAN 100 UNIT/ML 3 ML VIAL (PYX) SUBCUT SCH (06:23)
[2018-08-19] MEDS: PANTOPRAZOLE SODIUM 40 MG TABLET.DR PO SCH (06:24)
[2018-08-19] MEDS: CLONIDINE HCL 0.1 MG TABLET PO SCH (06:24)
--- NOTE | 2018-08-19 09:06 | PDOC DISCHARGE SUMMARY ---
General - Admit/Disc Date/PCP Admission Date/Primary Care Provider: 08/12/18 00:36 Discharge Date: 08/19/18 - Discharge Diagnosis (1) Acute and chronic respiratory failure with hypoxia Is this a current diagnosis for this admission?: Yes (2) Acute encephalopathy Is this a current diagnosis for this admission?: Yes (3) Pneumonia Is this a current diagnosis for this admission?: Yes (4) Pulmonary hypertension Is this a current diagnosis for this admission?: Yes (5) Morbid obesity with BMI of 40.0-44.9, adult Is this a current diagnosis for this admission?: Yes (6) Obstructive sleep apnea Is this a current diagnosis for this admission?: Yes - Additional Information Resuscitation Status: Full Code Home Medications: Ambrisentan [Letairis] 5 mg PO DAILY 08/12/18 Aspirin [Aspirin 81 mg Chewable Tablet] 81 mg PO DAILY 08/12/18 Atenolol [Tenormin 100 mg Tablet] 100 mg PO DAILY 08/12/18 Carvedilol [Coreg 12.5 mg Tablet] 12.5 mg PO Q12 08/12/18 Clonidine HCl [Catapres 0.1 mg Tablet] 0.1 mg PO Q8 08/12/18 Cyanocobalamin (Vitamin B-12) [Vitamin B-12 Inj 1000 Mcg/1 ml Vial] 1,000 mcg IM .MONTHLY 08/12/18 Cyclobenzaprine HCl [Flexeril 5 mg Tablet] 5 mg PO DAILY 08/12/18 Diltiazem HCl [Cartia Xt] 300 mg PO DAILY 08/12/18 Doxycycline Hyclate [Vibramycin 100 mg Tablet] 100 mg PO DAILY 08/12/18 Ergocalciferol (Vitamin D2) [Drisdol 50,000 Unit (1.25MG) Capsule] 50,000 unit PO PERALTA@1000 08/12/18 Fexofenadine HCl [Nela] 180 mg PO DAILY 08/12/18 Fluticasone Propionate [Flonase Nasal [place] 50 Mcg/[place] 16 gm] 2 sprays NASL DAILY 08/12/18 Furosemide [Lasix 20 mg Tablet] 20 mg PO DAILY 08/12/18 Furosemide [Lasix 20 mg Tablet] 20 mg PO DAILYP PRN 08/12/18 Hydrocodone/Acetaminophen [Fidelity 7.5-325 mg Tablet] 1 tab PO BIDP PRN 08/12/18 Omeprazole 20 mg PO Q6AM 08/12/18 Prednisone [Deltasone 5 mg Tablet] 5 mg PO DAILY 08/12/18 Ranitidine HCl [Zantac] 150 mg PO BID 08/12/18 Rosuvastatin Calcium [Crestor 20 mg Tablet] 20 mg PO QHS 08/12/18 Tadalafil [Adcirca] 20 mg PO BID 08/12/18 Testosterone Cypionate [Depo-Testosterone] 200 mg IM .[id number] 08/12/18 History of Present Illness History of Present Illness: ARLEY COELLO is a 43 year old male who presented to the emergency room via EMS with a history of acute episodes of agitation, headache and syncope. He was found by his at his home apparently having fallen asleep without using his BiPAP and she noted that he was cyanotic and hard to arouse. She put his BiPAP back on him and while she was trying to assist him he aroused suddenly and did not recognize her and became very agitated and combative and then as he improved he complained of a severe headache (the worst of his life) and then developed a sudden syncopal episode. This alarmed his and she called EMS. The patient had another similar episode in the emergency vehicle and again had a similar episode in the emergency room under the observation of the emergency room physician and staff. His oxygen saturations were noted to vary wildly in the emergency room and to guarantee his best oxygenation and reduce his agitation and anxiety he was intubated in placed on a ventilator. His CT scan shows no evidence of an acute intracranial process. Patient was subsequently admitted to the hospital for further evaluation and treatment in the ICU. Hospital Course Hospital Course: This is 43 years old male patient was past medical history of hypertension, obesity, pulmonary hypertension and obstructive sleep apnea admitted 6 days ago to ICU with altered mental status and severe headache. Patient had had 2 episodes of syncopal episode,. And while she is being transported by EMS and the second happened at the ER. CT scan of the head is negative for subarachnoid hemorrhage and LP was done and meningitis ruled out. Patient had been intubated for acute on chronic respiratory failure with hypoxia and transferred to ICU. During his stay patient had been treated also for pneumonia. Patient is extubated the day before yesterday and he tolerated the procedure. Later patient downgraded and transferred to the medical floor. He completed 5 days course of antibiotics for the pneumonia. This morning I seen patient resting in bed comfortably. He is awake alert oriented. He is not in pain or distress. His vital signs and blood works are unremarkable. Patient is stable enough to go home today. I will continue all his home medications. Patient advised to use his CPAP always at night. He is also advised to keep up upcoming appointment with his primary care physician. Physical Exam Vital Signs: Temp Pulse Resp BP Pulse Ox 98.6 F 52 L 16 187/96 H 100 08/19/18 07:27 08/19/18 07:00 08/19/18 07:27 08/19/18 07:27 08/19/18 04:11 Intake & Output 08/18/18 08/19/18 08/20/18 06:59 06:59 06:59 Intake Total 1000 1585 Output Total 800 750 Balance 200 835 Weight 117.2 kg 118.2 kg General appearance: PRESENT: no acute distress Head exam: PRESENT: atraumatic Eye exam: PRESENT: conjunctiva pink Mouth exam: PRESENT: moist Neck exam: ABSENT: carotid bruit, JVD, lymphadenopathy, thyromegaly Cardiovascular exam: PRESENT: RRR. ABSENT: diastolic murmur, rubs, systolic murmur Pulses: PRESENT: normal dorsalis pedis pul GI/Abdominal exam: PRESENT: normal bowel sounds, soft. ABSENT: distended, guarding, mass, organolmegaly, rebound, tenderness Neurological exam: PRESENT: alert, awake, oriented to time, oriented to situation Results Laboratory Results: 08/18/18 04:02 08/18/18 04:02 08/12/18 11:34 CSF Total Protein PEP 47.1 H CSF Prealbumin 2.4 CSF Albumin 61.7 CSF Rmsor-4-Miqorrnp 5.9 CSF Jjcke-5-Opghzjce 5.7 CSF Beta Globulin 18.0 H CSF Gamma Globulin 6.2 CSF PEP M-Nikita Not Observed 08/11/18 08/11/18 08/15/18 20:56 20:56 13:02 Creatine Kinase 64 29 L CK-MB (CK-2) 0.49 Troponin I < 0.012 08/15/18 08/15/18 08/15/18 13:02 19:23 19:23 Creatine Kinase 30 L CK-MB (CK-2) < 0.22 < 0.22 Troponin I < 0.012 < 0.012 08/16/18 08/16/18 00:55 00:55 Creatine Kinase 34 L CK-MB (CK-2) < 0.22 Troponin I < 0.012 Impressions: Head CT 08/11/18 20:56 IMPRESSION: No acute intracranial findings. EVIDENCE OF ACUTE STROKE: NO. Chest CT 08/11/18 21:46 IMPRESSION: Limited exam as a result of body habitus and lack of contrast Areas of atelectasis in the lower lobes bilaterally and in the upper lobes bilaterally Enlarged liver and spleen Probable hilar adenopathy Endotracheal and nasogastric tubes in place Head CTA 08/11/18 21:46 IMPRESSION: Significantly suboptimal exam due to venous interference and contrast bolus. However as visualized, the CTA portion of the exam is unremarkable. Diffusely enlarged and nodular appearance to the thyroid gland. This likely reflects goitrous change. Correlate with thyroid function. Airspace opacities in the visualized lung apices bilaterally. TECHNICAL DOCUMENTATION: Quality ID # 436: Final reports with documentation of one or more dose reduction techniques (e.g., Automated exposure control, adjustment of the mA and/or kV according to patient size, use of iterative reconstruction technique) copyright 2010 [employer]- All Rights Reserved Neck CTA 08/11/18 21:46 IMPRESSION: Significantly suboptimal exam due to venous interference and contrast bolus. However as visualized, the CTA portion of the exam is unremarkable. Diffusely enlarged and nodular appearance to the thyroid gland. This likely reflects goitrous change. Correlate with thyroid function. Airspace opacities in the visualized lung apices bilaterally. TECHNICAL DOCUMENTATION: Quality ID # 436: Final reports with documentation of one or more dose reduction techniques (e.g., Automated exposure control, adjustment of the mA and/or kV according to patient size, use of iterative reconstruction technique) copyright 2010 [employer]- All Rights Reserved Chest X-Ray 08/16/18 09:45 IMPRESSION: No interval change. No improvement. SUPPORT DEVICE(S) IN EXPECTED LOCATIONS. Qualifiers - * PATIENT BEING DISCHARGED WITH ANY OF THE FOLLOWING DIAGNOSIS: No Acute Heart Failure Is this a Heart Failure Patient?: No
[2018-08-19] MEDS: AMINO AC/PROTEIN HYDR/WHEY PRO 11 GM/45 ML PKT NG SCH (09:49)
[2018-08-19] MEDS: ENALAPRIL MALEATE 5 MG TABLET PO SCH (09:50)
[2018-08-19] MEDS: FONDAPARINUX SODIUM INJ 2.5 MG/0.5 ML DISP.SYRIN SUBCUT SCH (09:51)
[2018-08-19] MEDS: AMLODIPINE BESYLATE 10 MG TABLET PO SCH (09:51)
[2018-08-19] MEDS: METOCLOPRAMIDE HCL ORAL SOLN 10 MG/10 ML UDCUP NG SCH (09:51)
[2018-08-19] MEDS: FUROSEMIDE 20 MG TABLET NG SCH (09:52)
[2018-08-19] MEDS: FLUTICASONE NASAL SPRAY 50 MCG/SPRY 120 SPRAY/16 GM NASL SCH (09:52)
[2018-08-19] MEDS: ASPIRIN 81 MG TABLET, CHEWABLE PO SCH (09:52)
[2018-08-19] MEDS: LORATADINE 10 MG TABLET NG SCH (09:52)
[2018-08-19] MEDS: TADALAFIL 20 MG PO SCH (09:53)
[2018-08-19] MEDS ORDERED: AMBRISENTAN 5 MG PO SCH (10:00)
[2018-08-19 10:35] VITALS: BP 161/84
== END 2018-08-19 10:59 | disposition home or self-care (01) | DRG 207 ==
LOC: ER 20:35 → EDBD 20:35 → EH 08-12 00:36 → ICU 08-12 03:10 → 4S 08-17 17:11
PROVIDERS: ADMIT Emergency Medicine; ATTEND Emergency Medicine
PROC: 5A1955Z Respiratory Ventilation, Greater than 96 Consecutive Hours (ICD-10-PCS; principal; 2018-08-11)
PROC: 0BH17EZ Insertion of Endotracheal Airway into Trachea, Via Natural or Artificial Opening (ICD-10-PCS; 2018-08-11)
PROC: 009U3ZX Drainage of Spinal Canal, Percutaneous Approach, Diagnostic (ICD-10-PCS; 2018-08-12)
PROC: 5A09357 Assistance with Respiratory Ventilation, Less than 24 Consecutive Hours, Continuous Positive Airway Pressure (ICD-10-PCS; 2018-08-16)
DX: J96.21 Acute and chronic respiratory failure with hypoxia (principal); J18.9 Pneumonia, unspecified organism; Z68.41 Body mass index [BMI] 40.0-44.9, adult; E66.2 Morbid (severe) obesity with alveolar hypoventilation; G93.40 Encephalopathy, unspecified; F41.9 Anxiety disorder, unspecified; I27.20 Pulmonary hypertension, unspecified; Z78.1 Physical restraint status; Z79.899 Other long term (current) drug therapy; Z82.49 Family history of ischemic heart disease and other diseases of the circulatory system; Z88.6 Allergy status to analgesic agent; Z88.8 Allergy status to other drugs, medicaments and biological substances
CPT/HCPCS: 36415; 51702; 70450; 70496; 70498; 71045; 71250; 80053; 80307; 81001; 82271; 82375; 82550; 82553; 82803; 82945; 82962; 83605; 83735; 84157; 84166; 84439; 84443; 84481; 84484; 85025; 85610; 85730; 87040; 87070; 87086; 87205; 89050; 93005; 93010; 94002; 94003; 96374; 99291; B4155; J0360; J0692; J0696; J1652; J1940; J1956; J2001; J2250; J2405; J2704; J2920; J3010; J3490; J7030; J7060; J7120; S0164

== ENCOUNTER → 2019-05-31 | Outpatient (CLI) | payer MEDICARE, OTHER ==
--- NOTE | 2019-05-31 15:10 | RADIOLOGY REPORT (SQ) ---
EXAM DESCRIPTION: CT CHEST WITHOUT COMPLETED DATE/TIME: 05/31/2019 2:08 pm REASON FOR STUDY: OTHER DISORDERS OF LUNG (J98.4), OTHER FORMS OF DYSPNEA (R06.09) J98.4 OTHER DISO RDERS OF LUNG COMPARISON: CT of the chest without contrast from 08/11/2018. TECHNIQUE: CT scan performed of the chest without intravenous contrast. Images reviewed with lung, soft tissue and bone windows. Reconstructed coronal and sagittal MPR images reviewed. All images st ored on PACS. All CT scanners at this facility use dose modulation, iterative reconstruction, and/or weight based d osing when appropriate to reduce radiation dose to as low as reasonably achievable (ALARA). [facility]: Dose Right [facility]: CareDose [facility]: Dose Right [facility]: Teradose 4D [facility]: Veri[employer] RADIATION DOSE: CT Rad equipment meets quality standard of care and radiation dose reduction techniq ues were employed. CTDIvol: 18.2 mGy. DLP: 820 mGy-cm. LIMITATIONS: No technical limitations. FINDINGS: LUNGS AND PLEURA: The trachea and main bronchi are patent. There is no bronchiectasis or mucus plugging. There are 3 pulmonary nodules : a calcified 3 mm nodule (image 37 of series 4) in t he right upper lobe, a noncalcified 3 mm sub solid nodule in the left lower lobe (image 59 of series 4), and a noncalcified 4 mm solid nodule (image 46 of series 4) in the right upper lobe. There is no consolidation, ground-glass opacification. HILAR AND MEDIASTINAL STRUCTURES: Evaluation of the cailin for adenopathy is limited due to the absence of intravenous contrast. There is no mediastinal adenopathy or mass HEART AND VASCULAR STRUCTURES: No thoracic aortic aneurysm or intravascular hematoma. The heart is e nlarged and there is mild atherosclerotic calcification of the coronary arteries. There is no perica rdial effusion. UPPER ABDOMEN: Hepatic steatosis and splenomegaly. THYROID AND OTHER SOFT TISSUES: The thyroid gland is enlarged and heterogeneous. There is mild bilat eral gynecomastia. There is no axillary adenopathy. BONES: No acute findings. HARDWARE: None in the chest. OTHER: No other findings. IMPRESSION: 1. Cardiomegaly without a superimposed acute cardiopulmonary process. 2. Less than 6 mm solid noncalcified pulmonary nodules as detailed above. Per the 2017 Fleischner S ociety criteria in low risk patients no follow-up of these nodules is required. 3. Hepatic steatosis and splenomegaly. 4. Enlarged and heterogeneous thyroid gland. TECHNICAL DOCUMENTATION: JOB ID: [id number] Quality ID # 436: Final reports with documentation of one or more dose reduction techniques (e.g., Au tomated exposure control, adjustment of the mA and/or kV according to patient size, use of iterative reconstruction technique) 2010 [employer]- All Rights Reserved Reading location - IP/workstation name: [email or web address]
== END ==
LOC: RAD 13:48
PROVIDERS: ATTEND Internal Medicine Critical Care Medicine
DX: J98.4 Other disorders of lung (principal); R06.09 Other forms of dyspnea; I51.7 Cardiomegaly; K76.0 Fatty (change of) liver, not elsewhere classified; R16.1 Splenomegaly, not elsewhere classified; E04.9 Nontoxic goiter, unspecified
CPT/HCPCS: 71250

== ENCOUNTER 2019-09-17 18:36 | Emergency (ER) | payer MEDICARE, OTHER ==
[2019-09-17 20:11] LABS: ABSOLUTE EOSINOPHILS # (AUTO) 0.2 10^3/uL (0.0-0.6); ABSOLUTE LYMPHOCYTES (AUTO) 1.2 10^3/uL (0.5-4.7); ABSOLUTE MONOCYTES (AUTO) 0.4 10^3/uL (0.1-1.4); ABSOLUTE NEUT (AUTO) 3.7 10^3/uL (1.7-8.2); BASOPHILS % (AUTO) 0.7 % (0-2); EOSINOPHILS % (AUTO) 2.8 % (0-6); HEMATOCRIT 37.4 % (37.9-51.0); HEMOGLOBIN 12.6 g/dL (13.5-17.0); LYMPHOCYTES % (AUTO) 22.1 % (13-45); MEAN CORPUSCULAR HGB CONC 33.7 g/dL (32.0-36.0); MEAN CORPUSCULAR VOLUME 92 fl (80-97); MONOCYTES % (AUTO) 6.6 % (3-13); PLATELET COUNT 130 10^3/uL (150-450); RED BLOOD COUNT 4.06 10^6/uL (4.35-5.55); RED CELL DISTRIBUTION WIDTH 14.3 % (11.5-14.0); SEGMENTED NEUTROPHILS % (AUTO) 67.8 % (42-78); TOTAL CELLS COUNTED % (AUTO) 100 %; WHITE BLOOD COUNT 5.4 10^3/uL (4.0-10.5)
[2019-09-17 20:18] LABS: ALBUMIN 4.2 g/dL (3.5-5.0); ALKALINE PHOSPHATASE 116 U/L (38-126); ANION GAP 11 (5-19); ASPARTATE AMINO TRANSFERASE 60 U/L (17-59); BILIRUBIN,TOTAL 0.5 mg/dL (0.2-1.3); BLOOD UREA NITROGEN 13 mg/dL (7-20); CALCIUM 9.2 mg/dL (8.4-10.2); CARBON DIOXIDE 25 mmol/L (22-30); CHLORIDE 105 mmol/L (98-107); GLUCOSE 107 mg/dL (75-110); POTASSIUM 3.7 mmol/L (3.6-5.0); TOTAL PROTEIN 6.5 g/dL (6.3-8.2)
--- NOTE | 2019-09-17 20:37 | ER Document Report ---
ED Respiratory Problem - General Chief Complaint: Shortness Of Breath Stated Complaint: SHORTNESS OF BREATH Time Seen by Provider: 09/17/19 20:16 Primary Care Provider: STEPH GRANADOS MD [Primary Care Provider] - Follow up as needed Notes: Patient is a 44 year old male that comes to the emergency department for chief complaint of shortness of breath that started yesterday. He states that he feels like he cannot catch his breath when he is sitting up or walking, he states he feels more comfortable lying down. He has had a cough but states this is not new, he denies fever, chest pain, nausea, vomiting, abdominal pain, headache, dizziness, palpitations. He does report an 8 pound weight gain over the past day or so, he also reports swelling in his left lower extremity compared to the right. He states he has a history of pulmonary hypertension, he also has a history of obesity, ALEXA, hypertension. He does have chronic respiratory failure and was intubated about a year ago. He wears a modified BiPAP on 3 L at night and when desired reportedly, he is currently wearing this now. He denies smoking, asthma, COPD, diagnosed CHF. He states he takes a diuretic occasionally because he does "retain fluid because of my pulmonary hypertension medication", he states he took a double dose today. TRAVEL OUTSIDE OF THE [place] IN LAST 30 DAYS: No - Related Data Allergies/Adverse Reactions: codeine Allergy (Verified 08/12/18 00:20) nitroglycerin Adverse Reaction (Verified 08/12/18 00:20) Past Medical History - General Information source: Patient - Social History Smoking Status: Never Smoker Frequency of alcohol use: None Drug Abuse: None Lives with: Family Family History: CAD, Hypertension - Past Medical History Cardiac Medical History: Reports: Hx Hypertension Pulmonary Medical History: Reports: Hx Respiratory Failure - Chronic respiratory failure with hypoxia secondary to pulmonary HTN, Hx Sleep Apnea - Restrictive lung disease Denies: Hx Asthma, Hx COPD Endocrine Medical History: Denies: Hx Diabetes Mellitus Type 1, Hx Diabetes Mellitus Type 2 Renal/ Medical History: Denies: Hx Peritoneal Dialysis GI Medical History: Denies: Hx Cirrhosis, Hx Hepatitis Musculoskeletal Medical History: Denies Hx Arthritis, Denies Hx Gout Skin Medical History: Denies Hx Eczema, Denies Hx Psoriasis Psychiatric Medical History: Denies: Hx Depression Infectious Medical History: Denies: Hx Hepatitis - Immunizations Hx Diphtheria, Pertussis, Tetanus Vaccination: Yes Review of Systems - Review of Systems Constitutional: See HPI EENT: No symptoms reported Cardiovascular: See HPI Respiratory: See HPI Gastrointestinal: No symptoms reported Genitourinary: No symptoms reported Male Genitourinary: No symptoms reported Musculoskeletal: See HPI Skin: No symptoms reported Hematologic/Lymphatic: No symptoms reported Neurological/Psychological: No symptoms reported Physical Exam - Vital signs Vitals: Temp Resp Pulse Ox 98.6 F 14 98 09/17/19 18:37 09/17/19 18:37 09/17/19 18:37 - Notes Notes: GENERAL: Alert, interacts well. No acute distress. HEAD: Normocephalic, atraumatic. EYES: Pupils equal, round, and reactive to light. Extraocular movements intact. ENT: Oral mucosa moist, tongue midline. Oropharynx unremarkable. Airway patent. NECK: Full range of motion. Supple. Trachea midline. No lymphadenopathy. LUNGS: Clear to auscultation bilaterally, no wheezes, rales, or rhonchi. No respiratory distress. Non-tender chest wall. HEART: Regular rate and rhythm. No murmur ABDOMEN: Soft, non-tender. Non-distended. EXTREMITIES: There appears to be very slight edema in the left lower extremity and very slight swelling compared to the right. No significant pitting edema, normal distal neurovascular exam, normal coloration, unremarkable extremities otherwise. BACK: no cervical, thoracic, lumbar midline tenderness. No saddle anesthesia, normal distal neurovascular exam. Moves all extremities in full range of motion. NEUROLOGICAL: Alert and oriented x3. Normal speech. Cranial nerves II through XII grossly intact. Strength 5/5 in all extremities. PSYCH: Normal affect, normal mood. SKIN: Warm, dry, normal turgor. No rashes or lesions noted. Course - Re-evaluation Re-evalutation: Patient with an occasional cough, he reports this is productive at home but it was nonproductive at bedside. No fever. No hypoxia. Patient is talkative and well-appearing. Lungs clear, physical examination otherwise unremarkable. CBC unremarkable, chemistry unremarkable, troponin is not elevated, BNP is borderline. Chest x-ray with no acute findings. EKG unremarkable. Venous Doppler of the left lower extremity which is very slightly swollen was negative. Patient has no tachycardia, chest pain. I do have a low suspicion of pulmonary embolism. I did discuss with patient. Patient is worried he will develop pneumonia and wants to be tested for the coronavirus. He will be tested based on his risk factors and symptoms, he will be covered for potential pneumonia because of his productive cough with doxycycline. Patient is very appreciative of this. We did ambulate the patient with his normal 3 L nasal cannula and he did this very well without any difficulty, hypoxia, tachycardia, or distress. Patient was discharged home with return precautions. Patient states understanding and agreement with plan. - Vital Signs Vital signs: Temp Pulse Resp BP Pulse Ox 97.6 F 62 14 149/79 H 99 09/18/19 02:00 09/18/19 02:00 09/18/19 02:00 09/18/19 02:00 09/18/19 02:14 - Laboratory Result Diagrams: 09/17/19 18:44 09/17/19 18:44 Laboratory results interpreted by me: 09/17/19 09/17/19 09/17/19 18:44 18:44 18:44 RBC 4.06 L Hgb 12.6 L Hct 37.4 L RDW 14.3 H Plt Count 130 L VBG pH VBG pCO2 AST 60 H NT-Pro-B Natriuret Pep 262 H 09/17/19 21:44 RBC Hgb Hct RDW Plt Count VBG pH 7.48 H VBG pCO2 28.2 L AST NT-Pro-B Natriuret Pep Discharge - Discharge Clinical Impression: Shortness of breath, Cough, Productive cough Condition: Stable Disposition: HOME, SELF-CARE Additional Instructions: Your work-up including chest x-ray, ultrasound, and laboratory work-up does not show any concerning findings tonight. Your overall evaluation is most suggestive of an upper respiratory infection. We are treating you because of your productive cough to prevent a pneumonia. Take your regular medications, follow closely with your primary care provider. We are also testing you for the coronavirus, you will be tested with the results, see additional instructions below. Return for any concerning or worsening symptoms including difficulty breathing, spiking fever, chest pain, vomiting, or if something is not right. As a person under investigation for COVID-19, the [facility] of Health and Human Services (division on public health) advises you to adhere to the following guidance until your test results are reported to you. If your test result is positive, you will receive additional information from your provider and your local health department at that time. Remain at home until you are cleared by the health provider or public health authorities. Keep a log of visitors to your home, notify any visitors to your home of your isolation status. If you plan to move to a new address or leave the county, notify the local health department in your County. Call your Doctor or seek care if you have an urgent medical need. Before seeking medical care, call him to get instructions from the provider before arriving at the medical office, clinic, or hospital. Notify them that you are being tested for the virus (COVID-19) so that arrangements can be made, as necessary, to prevent transmission to others in the healthcare setting. Next, notify the local health department in your county. If a medical emergency arises and you need to call 911, inform the first responders that you are being tested for the virus that causes COVID-19. Next, notify the local health department in your county. Prescriptions: Doxycycline Hyclate [Vibramycin 100 mg Tablet] 100 mg PO BID 7 Days #14 tablet Referrals: STEPH GRANADOS MD [Primary Care Provider] - Follow up as needed
[2019-09-17 21:12] LABS: NT PRO BNP 262 pg/mL (<125)
[2019-09-17 21:13] LABS: TROPONIN I < 0.012 ng/mL
[2019-09-17 21:23] LABS: APPEARANCE,URINE CLEAR; BILIRUBIN,URINE NEGATIVE (NEGATIVE); COLOR,URINE COLORLESS; GLUCOSE, URINE NEGATIVE (NEGATIVE); KETONES,URINE NEGATIVE (NEGATIVE); LEUKOCYTE ESTERASE,URINE NEGATIVE (NEGATIVE); NITRITE,URINE NEGATIVE (NEGATIVE); PROTEIN,URINE NEGATIVE (NEGATIVE); URINE SPECIFIC GRAVITY 1.003; UROBILINOGEN,URINE NEGATIVE mg/dL (<2.0)
--- NOTE | 2019-09-17 21:32 | RADIOLOGY REPORT (SQ) ---
EXAM DESCRIPTION: X-ray, AP portable view of the chest CLINICAL HISTORY: 44 years Male, SHORTNESS OF BREATH COMPARISON: Single view of the chest 08/16/2018 FINDINGS: Lungs: Asymmetric elevation the right hemidiaphragm is unchanged. The lungs are clear. No pneumothorax. No pleural effusion. Mediastinum: Heart size is enlarged. Mediastinum is normal. On the previous examination the patient is intubated and an NG tube was seen. These are no longer identified. Bones: Osseous structures are stable IMPRESSION: 1. No pneumonia or edema. 2. Stable cardiomegaly.
[2019-09-17 22:03] LABS: VENOUS BLOOD BASE EXCESS -2.1 mmol/L; VENOUS BLOOD HCO3 20.4 mmol/L (20-32); VENOUS BLOOD PCO2 28.2 mmHg (35-63); VENOUS BLOOD PH 7.48 (7.30-7.42)
--- NOTE | 2019-09-17 22:24 | RADIOLOGY REPORT (SQ) ---
INDICATION: left leg swelling. PROCEDURE: Real-time grayscale, color, and pulse Doppler ultrasound imaging of the left lower extremity deep venous system was performed. 40 images. COMPARISON: None FINDINGS: The common femoral, superficial femoral, and popliteal veins demonstrate normal compressibility, phasic flow, augmentation and zamora scale evaluation. There is no evidence of intraluminal thrombus . The visualized deep calf veins appear patent. IMPRESSION: No evidence for acute deep venous thrombus from the common femoral to the popliteal veins.
[2019-09-18] MEDS ORDERED: MAG HYDROX/AL HYDROX/SIMETH SUSP 30 ML UDCUP PO ONE (01:01)
[2019-09-18] MEDS ORDERED: LIDOCAINE 2% VISCOUS SOLN 15 ML UDCUP PO ONE (01:01)
[2019-09-18] MEDS ORDERED: METOCLOPRAMIDE HCL ORAL SOLN 10 MG/10 ML UDCUP PO ONE (01:01)
[2019-09-18 04:12] VITALS: BP 149/79
--- NOTE | 2019-09-18 20:48 | EKG REPORT ---
SEVERITY:- ABNORMAL ECG - SINUS RHYTHM NONSPECIFIC INTRAVENTRICULAR CONDUCTION DELAY : Confirmed by: Adán Ruff 18-Sep-2019 20:46:48
== END 2019-09-18 02:14 | disposition home or self-care (01) ==
LOC: ER 18:36
DX: J96.10 Chronic respiratory failure, unspecified whether with hypoxia or hypercapnia (principal); Z99.81 Dependence on supplemental oxygen; R05 Cough; I27.20 Pulmonary hypertension, unspecified; Z79.899 Other long term (current) drug therapy; R63.5 Abnormal weight gain; M79.89 Other specified soft tissue disorders; Z88.6 Allergy status to analgesic agent; Z88.5 Allergy status to narcotic agent; Z20.828 Contact with and (suspected) exposure to other viral communicable diseases
CPT/HCPCS: 93005; 99285; 36415; 85025; 80053; 81001; 84484; 82803; 83880; 93971; 71045; 93010; U0003; C9803; 87635

== ENCOUNTER → 2020-04-06 | Outpatient (CLI) | payer MEDICAID, MEDICARE ==
--- NOTE | 2020-04-06 11:16 | RADIOLOGY REPORT (SQ) ---
EXAM DESCRIPTION: CTA CHEST IMAGES COMPLETED DATE/TIME: 04/06/2020 10:30 am REASON FOR STUDY: PULMONARY HYPERTENSION, WORSENING SOB ON I27.20 PULMONARY HYPERTENSION, UNSPECIFI ED COMPARISON: 05/31/2019 TECHNIQUE: CT scan of the chest performed using helical scanning technique with dynamic intravenous contrast injection. Images reviewed with lung, soft tissue and bone windows. Reconstructed coronal and sagittal MPR images reviewed. Additional 3 dimensional post-processing performed to develop Maximal Intensity Projection images (DC P). All images stored on PACS. All CT scanners at this facility use dose modulation, iterative reconstruction, and/or weight based d osing when appropriate to reduce radiation dose to as low as reasonably achievable (ALARA). [facility]: Dose Right [facility]: CareDose [facility]: Dose Right [facility]: Teradose 4D [facility]: [employer] CONTRAST TYPE AND DOSE: contrast/concentration: Isovue 350.00 mmol/ml; Total Contrast Delivered: 130 .0 ml; Total Saline Delivered: 160.0 ml Contrast bolus adequate for pulmonary arteries and aorta. RENAL FUNCTION: None required. The patient is less than 50 years old. RADIATION DOSE: CT Rad equipment meets quality standard of care and radiation dose reduction techniq ues were employed. CTDIvol: 4.2 - 46.5 mGy. DLP: 1528 mGy-cm. . LIMITATIONS: None. FINDINGS: LUNGS AND PLEURA: No focal consolidation, pleural effusion, or pneumothorax. Previously d emonstrated pulmonary nodules are stable in appearance. The airways remain patent. AORTA AND GREAT VESSELS: No aneurysm. No dissection. HEART: No pericardial effusion. Scant LAD coronary artery calcifications. Cardiomegaly with the appe arance of mild flattening of the interventricular septum suggesting a degree of pulmonary artery hype rtension. PULMONARY ARTERIES: No emboli visualized in the main pulmonary arteries or the segmental branches. HILAR AND MEDIASTINAL STRUCTURES: No identified masses or abnormal nodes. HARDWARE: None in the chest. UPPER ABDOMEN: No acute findings. Re- demonstration of hepatic steatosis and massive splenomegaly. THYROID AND OTHER SOFT TISSUES: Re- demonstration enlarged, multinodular thyroid mild bilateral gynec omastia. BONES: S-shaped scoliotic curvature of the thoracic spine. Associated spondylotic changes. No acute findings. 3D MIPS: Confirm above findings. OTHER: No other significant finding. IMPRESSION: Stable CT appearance of the chest demonstrating cardiomegaly noting mild flattening of t he interventricular septum, suggesting a degree of pulmonary arterial hypertension. These findings d o not appear to be significantly changed relative to 05/31/2019 CT imaging given differences in techni que. COMMENT: Quality ID # 436: Final reports with documentation of one or more dose reduction techniques (e.g., Automated exposure control, adjustment of the mA and/or kV according to patient size, use of iterative reconstruction technique) TECHNICAL DOCUMENTATION: JOB ID: [id number] 2010 [employer]- All Rights Reserved Reading location - IP/workstation name: [email or web address]
--- NOTE | 2020-04-06 15:56 | XCELERA REPORT ---
[address] [address] Transthoracic Echocardiogram Report Name: ARLEY COELLO Age: 44 yrs Gender: Male : 1975 Patient Status: Outpatient Patient Location: RAD Study Date: 04/06/2020 11:52 AM Height: 76 in Weight: 322 lb BSA: 2.7 m2 Reason For Study: HTN Ordering Physician: RAKESH SOLORZANO Performed By: Alejandrina Dawn Interpretation Summary Suboptimal study, incomplete wall motion visualization. Min.post. pericardial effusion.. Normal aortic root, mild calcification. AV valve configuration uncertain, with min. , PPG 16 mm Hg, and no AR. Mild mitral annular calcification. No MS, No MVP. Mild MR with mild enlarged LA size. Mild concentric LVH (IVS/PW both 11 mm) . Normal LVEF biplane 65% with no LVDD. Incomplete segmental wall motion analysis. Minimal LV enlargement ([id number]). Tricuspid valve is normal, Mod TV regurgitation., trace AK. RA and RV normal size. Mild pulmonary Hypertension, RVSP = 35 mm Hg. TAPSE appears normal. No ASD. Summary = Mild calcified aortic root. Unknown configuration, Mild , PPG 16mm Hg. Mild MR with no MS, mild LA enlargement. No LVH , normal LVEF (65 %) min. enlargement of LV, with NO LV Diastolic Dysfunction. See pictorals for wall motion. Normal R heart,mild pulm hypertension, RVSP 35mm Hg. mod. TR. Dr Corey Yousif. MMode/2D Measurements & Calculations RVDd: 3.0 cm LVIDd: 5.9 cm FS: 36.1 % Ao root diam: IVSd: 1.1 cm LVIDs: 3.8 cm EDV(Teich): 2.8 cm LVPWd: 1.1 cm 173.5 ml Ao root area: ESV(Teich): 60.9 ml 6.3 cm2 LA dimension: EF(Teich): 64.9 % 4.4 cm LVLd ap4: 8.8 cm SV(MOD-sp4): EDV(MOD-sp4): 82.0 ml 146.0 ml LVLs ap4: 6.9 cm ESV(MOD-sp4): 64.0 ml EF(MOD-sp4): 56.2 % Doppler Measurements & Calculations MV E max tracey: MV P1/2t max tracey: Ao V2 max: LV V1 max P.0 cm/sec 190.0 cm/sec 196.1 cm/sec 13.7 mmHg MV A max tracey: MV P1/2t: 56.9 msec Ao max PG: LV V1 max: 103.7 cm/sec MVA(P1/2t): 3.9 cm2 15.4 mmHg 185.1 cm/sec MV E/A: 1.7 MV dec slope: 977.9 cm/sec2 MV dec time: 0.22 sec PA V2 max: PI end-d tracey: TR max tracey: MV P1/2t-pr_phl: 124.9 cm/sec 122.2 cm/sec 279.0 cm/sec 56.9 msec PA max P.2 mmHg TR max P.1 mmHg I WMSI = 1.08 % Normal = 92 Segments Size X - Cannot 2 - 4 - 1-2 small Interpret 1 - Normal Hypokinetic 3 - AkineticDyskinetic 3-5 moderate 5 - 6-14 large Aneurysmal 15-16 diffuse : RAKESH SOLORZANO Andre
== END ==
LOC: RAD 09:48
PROVIDERS: ATTEND Internal Medicine
DX: I27.20 Pulmonary hypertension, unspecified (principal)
CPT/HCPCS: 71275; 82565; 93306